=== PATIENT | female | born 1985 | race Caucasian/White ===

== ENCOUNTER → 2017-05-07 | Outpatient (REF) | payer BC ==
[2017-05-07 09:19] LABS: BASO # 0.1 10^3/uL (0.0-0.2); BASO % 0.7 % (0.0-1.0); EOS # 0.3 10^3/uL (0.0-0.50); EOS % 3.7 % (0.0-3.0); HEMATOCRIT 39.5 % (36.0-47.0); HEMOGLOBIN 13.1 g/dl (12.0-16.0); IMMATURE GRANULOCYTE % 0.5 % (0-0); LYMPH # 1.6 10^3/uL (1.5-4.5); MEAN CORPUSCULAR HEMOGLOBIN 30.4 pg (27.0-33.0); MEAN CORPUSCULAR HGB CONC 33.2 g/dl (32.0-36.5); MEAN CORPUSCULAR VOLUME 91.6 fl (80.0-96.0); MONO # 0.6 10^3/uL (0.0-0.8); NEUTROPHILS % 66.1 % (36.0-66.0); PLATELET COUNT, AUTOMATED 348 10^3/uL (150-450); RED BLOOD COUNT 4.31 10^6/uL (4.00-5.40); RED CELL DISTRIBUTION WIDTH 13.2 % (11.5-14.5); WHITE BLOOD COUNT 7.5 10^3/uL (4.0-10.0)
[2017-05-07 09:45] LABS: ALBUMIN 3.5 GM/DL (3.2-5.2); ALBUMIN/GLOBULIN RATIO 0.97 (1.00-1.93); ALKALINE PHOSPHATASE 72 U/L (45-117); ALT/SGPT 26 U/L (12-78); ANION GAP 5 MEQ/L (8-16); AST/SGOT 12 U/L (7-37); BILIRUBIN,TOTAL 0.5 MG/DL (0.2-1.0); BLOOD UREA NITROGEN 8 MG/DL (7-18); CALCIUM LEVEL 8.5 MG/DL (8.5-10.1); CARBON DIOXIDE LEVEL 28 MEQ/L (21-32); CHLORIDE LEVEL 107 MEQ/L (98-107); CHOLESTEROL LEVEL 138 MG/DL (<200); CHOLESTEROL RISK RATIO 2.123 (<5); CREATININE FOR GFR 0.71 MG/DL (0.55-1.30); FREE T4 0.92 NG/DL (0.76-1.46); GLOMERULAR FILTRATION RATE > 60.0 (>60); GLUCOSE, FASTING 94 MG/DL (70-100); HDL CHOLESTEROL 65 MG/DL (>40); LDL CHOLESTEROL 54.6 MG/DL (<100); NON-HDL-C 73 MG/DL; POTASSIUM SERUM 4.3 MEQ/L (3.5-5.1); SODIUM LEVEL 140 MEQ/L (136-145); TOTAL PROTEIN 7.1 GM/DL (6.4-8.2); TRIGLYCERIDES LEVEL 92 MG/DL (<150)
[2017-05-07 09:47] LABS: TOTAL 25(OH) VITAMIN D 17.3 NG/ML (30.0-100.0)
== END ==
LOC: M LAB REF 08:28
DX: Z00.00 Encounter for general adult medical examination without abnormal findings (principal); K50.919 Crohn's disease, unspecified, with unspecified complications; F32.9 Major depressive disorder, single episode, unspecified; R03.0 Elevated blood-pressure reading, without diagnosis of hypertension; E55.9 Vitamin D deficiency, unspecified
CPT/HCPCS: 84443

== ENCOUNTER → 2017-06-12 | Outpatient (CLI) | payer BC ==
[2017-06-12 18:42] LABS: ANION GAP 8 MEQ/L (8-16); BLOOD UREA NITROGEN 12 MG/DL (7-18); CALCIUM LEVEL 8.7 MG/DL (8.5-10.1); CARBON DIOXIDE LEVEL 26 MEQ/L (21-32); CHLORIDE LEVEL 105 MEQ/L (98-107); CREATININE FOR GFR 0.57 MG/DL (0.55-1.30); FREE T4 0.92 NG/DL (0.76-1.46); GLOMERULAR FILTRATION RATE > 60.0 (>60); GLUCOSE, FASTING 83 MG/DL (70-100); POTASSIUM SERUM 4.1 MEQ/L (3.5-5.1); SODIUM LEVEL 139 MEQ/L (136-145)
[2017-06-13 08:49] LABS: THYROGLOBULIN ANTIBODY 22.6 U/ML (<60.0); THYROID PEROXIDASE ANTIBODY < 28.0 U/ML (<60.0)
== END ==
LOC: M WUC 14:49
DX: R94.6 Abnormal results of thyroid function studies (principal); I10 Essential (primary) hypertension

== ENCOUNTER → 2017-06-27 | Outpatient (REF) | payer BC ==
[2017-06-27 12:03] LABS: BASO % 0.5 % (0.0-1.0); EOS # 0.1 10^3/uL (0.0-0.50); EOS % 2.1 % (0.0-3.0); HEMATOCRIT 41.8 % (36.0-47.0); HEMOGLOBIN 13.9 g/dl (12.0-16.0); IMMATURE GRANULOCYTE % 0.2 % (0-3.0); LYMPH # 1.4 10^3/uL (1.5-4.5); LYMPH % 20.9 % (24.0-44.0); MEAN CORPUSCULAR HEMOGLOBIN 30.3 pg (27.0-33.0); MEAN CORPUSCULAR HGB CONC 33.3 g/dl (32.0-36.5); MEAN CORPUSCULAR VOLUME 91.1 fl (80.0-96.0); MONO # 0.6 10^3/uL (0.0-0.8); MONO % 8.6 % (0.0-5.0); NEUTROPHILS # 4.4 10^3/uL (1.8-7.7); NEUTROPHILS % 67.7 % (36.0-66.0); PLATELET COUNT, AUTOMATED 398 10^3/uL (150-450); RED BLOOD COUNT 4.59 10^6/uL (4.00-5.40); RED CELL DISTRIBUTION WIDTH 13.2 % (11.5-14.5); WHITE BLOOD COUNT 6.5 10^3/uL (4.0-10.0)
[2017-06-27 12:27] LABS: ALBUMIN 3.8 GM/DL (3.2-5.2); ALKALINE PHOSPHATASE 80 U/L (45-117); ALT/SGPT 32 U/L (12-78); ANION GAP 6 MEQ/L (8-16); AST/SGOT 23 U/L (7-37); BILIRUBIN,TOTAL 1.1 MG/DL (0.2-1.0); BLOOD UREA NITROGEN 6 MG/DL (7-18); C REACTIVE PROTEIN QUANTITATIV 0.59 MG/DL (0.00-0.30); CARBON DIOXIDE LEVEL 29 MEQ/L (21-32); CHLORIDE LEVEL 105 MEQ/L (98-107); CREATININE FOR GFR 0.61 MG/DL (0.55-1.30); GLOMERULAR FILTRATION RATE > 60.0 (>60); GLUCOSE, FASTING 82 MG/DL (70-100); POTASSIUM SERUM 4.4 MEQ/L (3.5-5.1); SODIUM LEVEL 140 MEQ/L (136-145); TOTAL PROTEIN 7.6 GM/DL (6.4-8.2)
[2017-06-27 13:37] LABS: ERYTHROCYTE SEDIMENTATION RATE 14 mm/hr (0-20)
== END ==
LOC: M SFHCPLAZ 09:20
DX: K50.918 Crohn's disease, unspecified, with other complication (principal)

== ENCOUNTER → 2017-07-25 | Outpatient (CLI) | payer BC ==
[~2017-07-25] MED LIST: GASTROGRAFIN SOLUTION 30ML (Q9963) As Ordered; ISOVUE-370 76% 100ML VIAL (Q9967) As Ordered
== END ==
LOC: M RAD 08:13
DX: K50.90 Crohn's disease, unspecified, without complications (principal)
CPT/HCPCS: Q9963

== ENCOUNTER → 2017-09-20 | Outpatient (CLI) | payer BC ==
[2017-09-20 07:56] LABS: BASO # 0.1 10^3/uL (0.0-0.2); BASO % 0.5 % (0.0-1.0); EOS # 0.2 10^3/uL (0.0-0.50); EOS % 2.1 % (0.0-3.0); HEMOGLOBIN 12.5 g/dl (12.0-15.5); IMMATURE GRANULOCYTE % 0.3 % (0-3.0); LYMPH # 2.6 10^3/uL (1.5-4.5); LYMPH % 26.2 % (24.0-44.0); MEAN CORPUSCULAR HEMOGLOBIN 30.2 pg (27.0-33.0); MEAN CORPUSCULAR HGB CONC 33.8 g/dl (32.0-36.5); MEAN CORPUSCULAR VOLUME 89.4 fl (80.0-96.0); MONO # 0.9 10^3/uL (0.0-0.8); MONO % 8.8 % (0.0-5.0); NEUTROPHILS # 6.1 10^3/uL (1.8-7.7); NEUTROPHILS % 62.1 % (36.0-66.0); PLATELET COUNT, AUTOMATED 408 10^3/uL (150-450); RED BLOOD COUNT 4.14 10^6/uL (4.00-5.40); RED CELL DISTRIBUTION WIDTH 12.2 % (11.5-14.5); WHITE BLOOD COUNT 9.8 10^3/uL (4.0-10.0)
[2017-09-20 08:38] LABS: ALBUMIN 3.5 GM/DL (3.2-5.2); ALBUMIN/GLOBULIN RATIO 0.88 (1.00-1.93); ALKALINE PHOSPHATASE 100 U/L (45-117); ALT/SGPT 28 U/L (12-78); ANION GAP 8 MEQ/L (8-16); AST/SGOT 15 U/L (7-37); BILIRUBIN,TOTAL 0.7 MG/DL (0.2-1.0); BLOOD UREA NITROGEN 12 MG/DL (7-18); CALCIUM LEVEL 8.8 MG/DL (8.5-10.1); CARBON DIOXIDE LEVEL 27 MEQ/L (21-32); CHLORIDE LEVEL 104 MEQ/L (98-107); CREATININE FOR GFR 0.69 MG/DL (0.55-1.30); GLOMERULAR FILTRATION RATE > 60.0 (>60); GLUCOSE, FASTING 86 MG/DL (70-100); POTASSIUM SERUM 4.3 MEQ/L (3.5-5.1); SODIUM LEVEL 139 MEQ/L (136-145); TOTAL PROTEIN 7.5 GM/DL (6.4-8.2)
[2017-09-20 10:08] LABS: FOLATE 10.8 NG/ML; VITAMIN B12 LEVEL 217 PG/ML
[2017-09-21 10:44] LABS: HEPATITIS B SURFACE ANTIGEN NEGATIVE (NEGATIVE)
[2017-09-22 15:28] LABS: QUANTIFERON GOLD TB Negative (Negative); TB Test (QFT) Antigen 0.09 IU/mL (.); TB Test (QFT) Antigen Minus Ni <0.01 IU/mL (.); TB Test (QFT) Mitogen 6.47 IU/mL (.)
== END ==
LOC: M LAB 07:08
DX: K50.018 Crohn's disease of small intestine with other complication (principal)
CPT/HCPCS: 82746

== ENCOUNTER → 2018-01-01 | Outpatient (REF) | payer OTHER | LOC: M LAB REF 14:40 | DX: K50.018 Crohn's disease of small intestine with other complication (principal) ==

== ENCOUNTER → 2018-01-01 | Outpatient (CLI) | payer OTHER ==
[2018-01-01 07:49] LABS: BASO % 0.5 % (0.0-1.0); EOS # 0.3 10^3/uL (0.0-0.50); EOS % 4.4 % (0.0-3.0); HEMOGLOBIN 12.7 g/dl (12.0-15.5); IMMATURE GRANULOCYTE % 0.4 % (0-3.0); LYMPH # 2.6 10^3/uL (1.5-4.5); LYMPH % 33.3 % (24.0-44.0); MEAN CORPUSCULAR HEMOGLOBIN 30.1 pg (27.0-33.0); MEAN CORPUSCULAR HGB CONC 33.4 g/dl (32.0-36.5); MONO # 0.7 10^3/uL (0.0-0.8); MONO % 9.4 % (0.0-5.0); PLATELET COUNT, AUTOMATED 335 10^3/uL (150-450); RED BLOOD COUNT 4.22 10^6/uL (4.00-5.40); RED CELL DISTRIBUTION WIDTH 12.6 % (11.5-14.5); WHITE BLOOD COUNT 7.7 10^3/uL (4.0-10.0)
[2018-01-01 08:19] LABS: ALBUMIN/GLOBULIN RATIO 1.21 (1.00-1.93); ALKALINE PHOSPHATASE 70 U/L (45-117); ALT/SGPT 34 U/L (12-78); ANION GAP 6 MEQ/L (8-16); AST/SGOT 21 U/L (7-37); BILIRUBIN,TOTAL 0.6 MG/DL (0.2-1.0); BLOOD UREA NITROGEN 10 MG/DL (7-18); CALCIUM LEVEL 8.8 MG/DL (8.5-10.1); CARBON DIOXIDE LEVEL 29 MEQ/L (21-32); CHLORIDE LEVEL 104 MEQ/L (98-107); CREATININE FOR GFR 0.64 MG/DL (0.55-1.30); GLOMERULAR FILTRATION RATE > 60.0 (>60); GLUCOSE, FASTING 86 MG/DL (70-100); POTASSIUM SERUM 4.1 MEQ/L (3.5-5.1); SODIUM LEVEL 139 MEQ/L (136-145); TOTAL PROTEIN 7.3 GM/DL (6.4-8.2)
[2018-01-01 09:24] LABS: ERYTHROCYTE SEDIMENTATION RATE 7 mm/hr (0-20)
== END ==
LOC: M LAB 07:15
DX: K50.018 Crohn's disease of small intestine with other complication (principal)
CPT/HCPCS: 80053

== ENCOUNTER 2018-01-09 08:49 | Outpatient (CLI) | payer OTHER ==
[2018-01-09] MEDS: VEDOLIZUMAB 300 MG in NS 250 ML IV (09:46)
== END 2018-01-09 10:45 | disposition home or self-care (01) ==
LOC: M INFU 08:49
DX: K50.90 Crohn's disease, unspecified, without complications (principal)
CPT/HCPCS: J3380

== ENCOUNTER 2018-03-01 12:01 | Day surgery (SDC) | payer OTHER ==
[2018-03-01] MEDS: NS 1,000 ML IV (07:30)
[~2018-03-01 12:01] MED LIST changes: -GASTROGRAFIN SOLUTION 30ML (Q9963) As Ordered; -ISOVUE-370 76% 100ML VIAL (Q9967) As Ordered; +LIDOCAINE 2% INJ 100 MG/5 ML SDV (FOR ANES.) As Ordered; +PROPOFOL 200 MG/20 ML VIAL As Ordered
[2018-03-01] MEDS ORDERED: fentaNYL 100 MCG/2 ML INJECTION (J3010) As Ordered (13:56)
== END 2018-03-01 15:04 | disposition home or self-care (01) ==
LOC: M OPP 12:01
DX: K50.90 Crohn's disease, unspecified, without complications (principal); R12 Heartburn; F33.9 Major depressive disorder, recurrent, unspecified; F41.9 Anxiety disorder, unspecified; Z98.0 Intestinal bypass and anastomosis status; Z98.890 Other specified postprocedural states; Z79.899 Other long term (current) drug therapy; Z80.3 Family history of malignant neoplasm of breast
CPT/HCPCS: 45378

== ENCOUNTER 2018-03-13 09:59 | Outpatient (CLI) | payer OTHER ==
[~2018-03-13] VITALS: Ht 165.1 cm; Wt 86.4 kg
[~2018-03-13 09:59] MED LIST changes: +ABIL5TAB OR; +BUDE3CAP; +BUSP10TA2 OR; +EFFE75CA75 OR; +HUMI40KI2 SC; -LIDOCAINE 2% INJ 100 MG/5 ML SDV (FOR ANES.) As Ordered; +LISI10TA4 PO; -PROPOFOL 200 MG/20 ML VIAL As Ordered; +TRAZ50TA OR; +VENL150C43; +VENL37.598 PO; +VITA100067 PO; +VITA200016 PO; +VITA500C24 PO; +VITATAB11 PO; +ZOLO50TA OR
[2018-03-13 10:28] VITALS: BP 139/82
[2018-03-13] MEDS ORDERED: VEDOLIZUMAB 300 MG in NS 250 ML IV ONE (11:00)
[2018-03-13 11:17] VITALS: BP 131/93
== END 2018-03-13 11:15 | disposition home or self-care (01) ==
LOC: M INFU 09:59
PROVIDERS: ATTEND Internal Medicine Gastroenterology
DX: K50.90 Crohn's disease, unspecified, without complications (principal)
CPT/HCPCS: 96365; J3380

== ENCOUNTER 2018-05-01 06:56 | Outpatient (CLI) | payer OTHER ==
[~2018-05-01] VITALS: Ht 165.1 cm; Wt 86.5 kg
[2018-05-01 07:00] VITALS: BP 142/90
[2018-05-01] MEDS ORDERED: VEDOLIZUMAB 300 MG in NS 250 ML IV ONE (07:00)
[2018-05-01 08:28] VITALS: BP 143/93
== END 2018-05-01 08:30 | disposition home or self-care (01) ==
LOC: M INFU 06:56
PROVIDERS: ATTEND Internal Medicine Gastroenterology
DX: K50.90 Crohn's disease, unspecified, without complications (principal)
CPT/HCPCS: 96365; J3380

== ENCOUNTER → 2018-05-19 | Outpatient (REF) | payer OTHER ==
[2018-05-19 14:25] LABS: INFLUENZA A AMPLIFICATION POSITIVE (NEGATIVE); INFLUENZA B AMPLIFICATION NEGATIVE (NEGATIVE)
== END ==
LOC: M LAB REF 10:19
PROVIDERS: ATTEND Physician Assistant Medical
DX: J11.1 Influenza due to unidentified influenza virus with other respiratory manifestations (principal)

== ENCOUNTER → 2018-07-11 | Outpatient (CLI) | payer OTHER ==
[2018-07-11 13:49] LABS: HEMATOCRIT 41.2 % (36.0-47.0); HEMOGLOBIN 13.8 g/dl (12.0-15.5); MEAN CORPUSCULAR HEMOGLOBIN 29.9 pg (27.0-33.0); MEAN CORPUSCULAR HGB CONC 33.5 g/dl (32.0-36.5); MEAN CORPUSCULAR VOLUME 89.2 fl (80.0-96.0); PLATELET COUNT, AUTOMATED 332 10^3/uL (150-450); RED BLOOD COUNT 4.62 10^6/uL (4.00-5.40); WHITE BLOOD COUNT 7.3 10^3/uL (4.0-10.0)
[2018-07-11 14:23] LABS: ALBUMIN 3.8 GM/DL (3.2-5.2); ALT/SGPT 45 U/L (12-78); BILIRUBIN,TOTAL 1.2 MG/DL (0.2-1.0); BLOOD UREA NITROGEN 8 MG/DL (7-18); CALCIUM LEVEL 9.1 MG/DL (8.5-10.1); CARBON DIOXIDE LEVEL 23 MEQ/L (21-32); CHLORIDE LEVEL 105 MEQ/L (98-107); CREATININE FOR GFR 0.65 MG/DL (0.55-1.30); FREE T4 1.02 NG/DL (0.76-1.46); GLOMERULAR FILTRATION RATE > 60.0 (>60); GLUCOSE, FASTING 90 MG/DL (70-100); POTASSIUM SERUM 3.7 MEQ/L (3.5-5.1); SODIUM LEVEL 137 MEQ/L (136-145); TOTAL 25(OH) VITAMIN D 22.9 NG/ML (30.0-100.0); TOTAL PROTEIN 7.5 GM/DL (6.4-8.2)
[2018-07-11 14:26] LABS: CREATININE, URINE 28.3 MG/DL; MALB URINE SIEMENS < 5.0 MG/L; MAU/CREAT RATIO 17.6 MCG/MG (0.0-30.0)
== END ==
LOC: M LAB 13:22
PROVIDERS: ATTEND Physician Assistant
DX: E55.9 Vitamin D deficiency, unspecified (principal); I10 Essential (primary) hypertension

== ENCOUNTER 2018-12-11 08:48 | Outpatient (CLI) | payer OTHER ==
[~2018-12-11] VITALS: Ht 165.1 cm; Wt 89.8 kg
[2018-12-11 08:50] VITALS: BP 132/83
[2018-12-11] MEDS ORDERED: VEDOLIZUMAB 300 MG in NS 250 ML IV ONE (10:00)
[2018-12-11 10:05] VITALS: BP 148/90
== END 2018-12-11 10:15 | disposition home or self-care (01) ==
LOC: M INFU 08:48
PROVIDERS: ATTEND Internal Medicine Gastroenterology
DX: K50.90 Crohn's disease, unspecified, without complications (principal)
CPT/HCPCS: 96365; J3380

== ENCOUNTER 2019-02-12 09:00 | Outpatient (CLI) | payer OTHER ==
[~2019-02-12] VITALS: Ht 165.1 cm; Wt 79.8 kg
[2019-02-12 09:00] VITALS: BP 129/97
[2019-02-12] MEDS ORDERED: VEDOLIZUMAB 300 MG in NS 250 ML IV ONE (09:15)
[2019-02-12 10:20] VITALS: BP 135/87
== END 2019-02-12 10:20 | disposition home or self-care (01) ==
LOC: M INFU 09:00
PROVIDERS: ATTEND Internal Medicine Gastroenterology
DX: K50.90 Crohn's disease, unspecified, without complications (principal)
CPT/HCPCS: 96365; J3380

== ENCOUNTER 2019-04-09 08:58 | Outpatient (CLI) | payer BC, OTHER ==
[~2019-04-09] VITALS: Ht 165.1 cm; Wt 79.8 kg
[2019-04-09 09:00] VITALS: BP 131/90
[2019-04-09 10:20] VITALS: BP 141/87
[2019-04-09] MEDS ORDERED: VEDOLIZUMAB 300 MG in NS 250 ML IV ONE (11:00)
== END 2019-04-09 10:20 | disposition home or self-care (01) ==
LOC: M INFU 08:58
PROVIDERS: ATTEND Internal Medicine Gastroenterology
DX: K50.90 Crohn's disease, unspecified, without complications (principal); Z79.899 Other long term (current) drug therapy
CPT/HCPCS: 96365; J3380

== ENCOUNTER → 2019-05-08 | Outpatient (CLI) | payer BC ==
[2019-05-08 06:55] LABS: BASO # 0.1 10^3/uL (0.0-0.2); BASO % 0.8 % (0.0-1.0); EOS # 0.4 10^3/uL (0.0-0.5); EOS % 5.4 % (0.0-3.0); HEMATOCRIT 42.3 % (36.0-47.0); HEMOGLOBIN 13.5 g/dl (12.0-15.5); LYMPH # 2.2 10^3/uL (1.5-5.0); LYMPH % 27.6 % (24.0-44.0); MEAN CORPUSCULAR HEMOGLOBIN 30.8 pg (27.0-33.0); MEAN CORPUSCULAR HGB CONC 31.9 g/dl (32.0-36.5); MEAN CORPUSCULAR VOLUME 96.4 fl (80.0-96.0); MONO # 0.7 10^3/uL (0.0-0.8); MONO % 8.4 % (0.0-5.0); NEUTROPHILS # 4.5 10^3/uL (1.5-8.5); NEUTROPHILS % 57.5 % (36.0-66.0); PLATELET COUNT, AUTOMATED 323 10^3/uL (150-450); RED BLOOD COUNT 4.39 10^6/uL (4.00-5.40); WHITE BLOOD COUNT 7.8 10^3/uL (4.0-10.0)
[2019-05-08 07:32] LABS: ALBUMIN 3.5 GM/DL (3.2-5.2); ALT/SGPT 32 U/L (12-78); BILIRUBIN,TOTAL 0.7 MG/DL (0.2-1.0); BLOOD UREA NITROGEN 7 MG/DL (7-18); CALCIUM LEVEL 9.2 MG/DL (8.5-10.1); CARBON DIOXIDE LEVEL 31 MEQ/L (21-32); CHLORIDE LEVEL 104 MEQ/L (98-107); CHOLESTEROL LEVEL 142 MG/DL (<200); CHOLESTEROL RISK RATIO 2.088 (<5); CREATININE FOR GFR 0.66 MG/DL (0.55-1.30); GLOMERULAR FILTRATION RATE > 60.0 (>60); GLUCOSE, FASTING 76 MG/DL (70-100); HDL CHOLESTEROL 68 MG/DL (>40); LDL CHOLESTEROL 46 MG/DL (<100); NON-HDL-C 74 MG/DL; POTASSIUM SERUM 4.4 MEQ/L (3.5-5.1); SODIUM LEVEL 140 MEQ/L (136-145); TOTAL PROTEIN 7.7 GM/DL (6.4-8.2); TRIGLYCERIDES LEVEL 141 MG/DL (<150)
[2019-05-08 11:28] LABS: PTH INTACT 50.1 PG/ML (18.5-88.0); TOTAL 25(OH) VITAMIN D 20.7 NG/ML (30.0-100.0)
== END ==
LOC: M LAB 06:30
PROVIDERS: ATTEND Physician Assistant Medical
DX: E55.9 Vitamin D deficiency, unspecified (principal)

== ENCOUNTER 2019-06-02 08:53 | Outpatient (CLI) | payer BC ==
[~2019-06-02] VITALS: Ht 165.1 cm; Wt 79.8 kg
[2019-06-02 09:00] VITALS: BP 158/91
[2019-06-02 10:00] VITALS: BP 129/80
[2019-06-02] MEDS ORDERED: VEDOLIZUMAB 300 MG in NS 250 ML IV ONE (10:00)
== END 2019-06-02 10:00 | disposition home or self-care (01) ==
LOC: M INFU 08:53
PROVIDERS: ATTEND Internal Medicine Gastroenterology
DX: K50.90 Crohn's disease, unspecified, without complications (principal)
CPT/HCPCS: 96365; J3380

== ENCOUNTER → 2019-06-24 | Outpatient (REF) | payer BC ==
[2019-06-24 11:56] LABS: BASO % 0.5 % (0.0-1.0); EOS # 0.3 10^3/uL (0.0-0.5); EOS % 3.8 % (0.0-3.0); HEMATOCRIT 42.6 % (36.0-47.0); HEMOGLOBIN 13.8 g/dl (12.0-15.5); LYMPH # 1.5 10^3/uL (1.5-5.0); LYMPH % 19.9 % (24.0-44.0); MEAN CORPUSCULAR HEMOGLOBIN 30.7 pg (27.0-33.0); MEAN CORPUSCULAR HGB CONC 32.4 g/dl (32.0-36.5); MEAN CORPUSCULAR VOLUME 94.9 fl (80.0-96.0); MONO # 0.6 10^3/uL (0.0-0.8); MONO % 7.8 % (0.0-5.0); NEUTROPHILS # 5.1 10^3/uL (1.5-8.5); NEUTROPHILS % 67.6 % (36.0-66.0); PLATELET COUNT, AUTOMATED 433 10^3/uL (150-450); RED BLOOD COUNT 4.49 10^6/uL (4.00-5.40); WHITE BLOOD COUNT 7.6 10^3/uL (4.0-10.0)
[2019-06-24 12:13] LABS: ALBUMIN 3.7 GM/DL (3.2-5.2); ALT/SGPT 23 U/L (12-78); BILIRUBIN,TOTAL 1.1 MG/DL (0.2-1.0); BLOOD UREA NITROGEN 10 MG/DL (7-18); C REACTIVE PROTEIN QUANTITATIV 1.63 MG/DL (0.00-0.30); CALCIUM LEVEL 9.8 MG/DL (8.5-10.1); CARBON DIOXIDE LEVEL 30 MEQ/L (21-32); CHLORIDE LEVEL 102 MEQ/L (98-107); CPK CREATINE PHOSPHOKINASE 49 U/L (26-192); CREATININE FOR GFR 0.63 MG/DL (0.55-1.30); GLOMERULAR FILTRATION RATE > 60.0 (>60); GLUCOSE, FASTING 89 MG/DL (70-100); POTASSIUM SERUM 4.5 MEQ/L (3.5-5.1); SODIUM LEVEL 137 MEQ/L (136-145); TOTAL PROTEIN 8.3 GM/DL (6.4-8.2)
[2019-06-24 12:29] LABS: ERYTHROCYTE SEDIMENTATION RATE 58 mm/hr (0-20)
[2019-06-24 13:05] LABS: APPEARANCE, URINE HAZY (CLEAR); COLOR, URINE YELLOW (YELLOW); GLUCOSE, URINE (UA) AUTO NEGATIVE (NEGATIVE); KETONE, URINE AUTO NEGATIVE (NEGATIVE); PROTEIN, URINE AUTO NEGATIVE (NEGATIVE); SPECIFIC GRAVITY URINE AUTO 1.019 (1.002-1.035)
[2019-06-24 13:06] LABS: BILIRUBIN, URINE AUTO NEGATIVE (NEGATIVE); BLOOD, URINE BLOOD NEGATIVE (NEGATIVE); LEUKOCYTE ESTERASE, URINE AUTO NEGATIVE (NEGATIVE); NITRITE, URINE AUTO NEGATIVE (NEGATIVE); SQUAMOUS EPITHELIAL CELL UR AU 3 /HPF (0-6); UROBILINOGEN, URINE AUTO 0.2 mg/dL (0.0-2.0); WBC, URINE AUTO 7 /HPF (0-3)
[2019-06-24 13:07] LABS: MUCUS, URINE SMALL (NEGATIVE)
[2019-06-24 13:08] LABS: RBC, URINE AUTO 1 /HPF (0-3)
[2019-06-24 13:27] LABS: BACTERIA, URINE AUTO NEGATIVE (NEGATIVE)
== END ==
LOC: M SFHCPLAZ 10:11
PROVIDERS: ATTEND Physician Assistant Medical
DX: S29.011A Strain of muscle and tendon of front wall of thorax, initial encounter (principal); W18.30XA Fall on same level, unspecified, initial encounter; Y92.9 Unspecified place or not applicable

== ENCOUNTER → 2019-06-24 | Outpatient (CLI) | payer BC ==
--- NOTE | 2019-06-24 11:27 | REPPI ---
Clinical: Pleuritic chest pain . Comparison: None . Technique: PA and lateral. Findings: The mediastinum and cardiac silhouette are normal. The lung vernon are clear and without acute consolidation, effusion, or pneumothorax. The skeletal structures are intact and normal. Impression: 1. No acute cardiopulmonary process. Electronically Signed by Mitesh Yanez MD 06/24/2019 11:18 A
--- NOTE | 2019-06-24 11:28 | REPPI ---
Clinical: thoracic back pain. Technique: AP, lateral, and swimmers views. Findings: Alignment and kyphosis is maintained. Vertebral bodies intact. No acute fracture / compression injury or subluxation. No degenerative changes. Paravertebral soft tissues are normal. Impression: Normal thoracic spine series. Electronically Signed by Mitesh Yanez MD 06/24/2019 11:19 A
--- NOTE | 2019-06-24 11:30 | REPPI ---
Clinical: Lower back pain and sciatica . Technique: AP, lateral, bilateral oblique, and coned-down views. Findings: Alignment and lordosis is maintained. The vertebral bodies including are intact and there is no evidence for acute fracture / compression injury or subluxation. Lateral view cannot exclude L5 spondylolysis and facet hypertrophy without spondylolisthesis. The disc spaces are essentially well-maintained. Impression: Cannot exclude L5 spondylolysis and L5 facet arthropathy without further abnormalities. Electronically Signed by Mitesh Yanez MD 06/24/2019 11:22 A
== END ==
LOC: M PLAIMG 10:47
PROVIDERS: ATTEND Physician Assistant Medical
DX: S29.011A Strain of muscle and tendon of front wall of thorax, initial encounter (principal); M54.31 Sciatica, right side; R07.81 Pleurodynia; X58.XXXA Exposure to other specified factors, initial encounter; Y92.89 Other specified places as the place of occurrence of the external cause

== ENCOUNTER → 2019-06-24 | Outpatient (CLI) | payer BC ==
--- NOTE | 2019-06-24 12:28 | REP ---
Clinical: Right flank pain. Technique: Axial noncontrast images from the lung bases to the pubic symphysis with coronal and sagittal re-formations. Comparison: 07/25/2017. Findings: Lung bases are clear. Visualized heart and pericardium normal. Liver, spleen, pancreas, bilateral adrenal glands and right kidney are normal for noncontrast evaluation. The left kidney demonstrates few 1-2 mm nonobstructing calculi and suspected 2 cm cyst. There is no evidence for perinephric stranding, hydronephrosis, or obstructing ureteral calculus. Evidence of prior cholecystectomy. The enteric system is without obstruction or acute inflammatory process. There is evidence for prior partial resection and anastomoses in the right lower quadrant along with evidence of prior appendectomy. Pelvis demonstrates normal bladder and age-appropriate uterus/adnexa. No ascites. No free air. No adenopathy. Abdominal aorta without aneurysm. Musculoskeletal structures without acute osseous abnormality. Impression: 1. No acute abdominopelvic pathology appreciated. No ascites. No adenopathy. No focal inflammatory stranding. 2. 1-2 mm nonobstructing left renal calculi and suspected 2 cm left renal cyst. Right kidney/ureter and bladder appear normal. 3. Evidence for prior cholecystectomy, appendectomy and distal small bowel resection/anastomoses. Electronically Signed by Mitesh Yanez MD 06/24/2019 12:20 P
== END ==
LOC: M RAD 11:47
PROVIDERS: ATTEND Physician Assistant Medical
DX: R10.9 Unspecified abdominal pain (principal); N20.0 Calculus of kidney; Z90.49 Acquired absence of other specified parts of digestive tract

== ENCOUNTER → 2019-06-30 | Outpatient (CLI) | payer BC ==
[2019-06-30 16:21] LABS: BASO # 0.1 10^3/uL (0.0-0.2); BASO % 0.6 % (0.0-1.0); EOS # 0.2 10^3/uL (0.0-0.5); EOS % 2.8 % (0.0-3.0); HEMATOCRIT 39.1 % (36.0-47.0); LYMPH % 25.1 % (24.0-44.0); MEAN CORPUSCULAR HEMOGLOBIN 31.3 pg (27.0-33.0); MEAN CORPUSCULAR HGB CONC 33.2 g/dl (32.0-36.5); MEAN CORPUSCULAR VOLUME 94.2 fl (80.0-96.0); MONO # 0.9 10^3/uL (0.0-0.8); NEUTROPHILS # 4.7 10^3/uL (1.5-8.5); NEUTROPHILS % 60.1 % (36.0-66.0); PLATELET COUNT, AUTOMATED 408 10^3/uL (150-450); RED BLOOD COUNT 4.15 10^6/uL (4.00-5.40); WHITE BLOOD COUNT 7.8 10^3/uL (4.0-10.0)
[2019-06-30 17:53] LABS: ERYTHROCYTE SEDIMENTATION RATE 39 mm/hr (0-20)
== END ==
LOC: M LAB 15:19
PROVIDERS: ATTEND Family Medicine
DX: M54.31 Sciatica, right side (principal); M54.32 Sciatica, left side

== ENCOUNTER → 2019-07-03 | Outpatient (CLI) | payer BC ==
[~2019-07-03] MED LIST changes: +PROHANCE 279.3MG/ML 15ML VIAL (A9576) As Ordered ONE; +PROHANCE 279.3MG/ML 5ML VIAL (A9576) As Ordered ONE
--- NOTE | 2019-07-03 11:08 | REP ---
MRI LUMBAR SPINE WITHOUT AND WITH IV GADOLINIUM: HISTORY: Discitis of the lumbar region. Pain. Comparison lumbar spine radiographs June 24, 2019. TECHNIQUE: Sagittal and axial T1 and T2-weighted scans are acquired in the usual fashion with and without fat saturation. Sequences include spin echo, turbo spin-echo, and STIR imaging sequences. The field of view on sagittal images extend from the upper half of the T12 vertebral body through the second sacral segment. Gadolinium enhancement dose is 16.2 mL of intravenous ProHance. MRI FINDINGS: Lumbar vertebral body heights are preserved. Alignment is normal. There is no evidence of spondylolysis or spondylolisthesis. No bony destructive lesion is seen. Intervertebral disc space narrowing is noted at L3-4 and slightly at L4-5. End plates remain intact. There is no MR evidence of lumbar infectious discitis. The tip of the conus medullaris is normal in position and appearance at T12-L1. No extra vertebral abnormality is observed. Axial and sagittal images at L3-4 demonstrate minimal diffuse disc bulging. No central canal stenosis or foraminal narrowing is seen. The L4-5 level shows an unremarkable posterior disc margin. At L5-S1, there is mild facet hypertrophy bilaterally. No spinal stenosis, disc protrusion, or foraminal narrowing is seen. IMPRESSION: Mild degenerative spondylosis changes L3-4 and L5-S1 as above. There is no evidence of infectious discitis. No abnormal gadolinium and the enhancement is seen. Electronically Signed by Yfn Cullen MD 07/03/2019 12:35 P
--- NOTE | 2019-07-03 11:57 | REP ---
MRI THORACIC SPINE WITHOUT AND WITH IV GADOLINIUM: HISTORY: Discitis of the lumbar region. Back pain. TECHNIQUE: Sagittal and axial T1- and T2-weighted scans are acquired in the usual fashion with and without fat saturation. Sequences include spin echo, turbo spin-echo, and STIR imaging sequences. Gadolinium enhancement dose is 16.2 mL of intravenous ProHance. MRI FINDINGS: Thoracic vertebral body heights are preserved. Alignment is normal. No bony destructive lesion is seen. There is degenerative disc narrowing at T6-7, T4-5, and T11-T12 consistent with degenerative disc disease. Thoracic cord is normal in coarse, caliber, and signal intensity. At the T11-12 level however, there is a broad-based disc protrusion, which effaces the ventral subarachnoid space and flattens the ventral margin of the lower thoracic cord just above the conus. The conus is at T12-L1. The mid line AP dimension of the thecal sac at the level of the disc protrusion is 10 mm. There is no evidence of tod spinal stenosis or cord compression. On T2-weighted inversion recovery sequences, there are several foci of marrow edema with T2-weighted signal. These areas including the right posterior vertebral body at T10, the left posterior vertebral body and left pedicle at T9, the left posterior vertebral body at T7 and the left posterior vertebral body and pedicle at T6. There is some contrast enhancement associated with these. T1-weighted postcontrast axial images shows edema and contrast enhancement at the costovertebral junctions of these segments. Question costovertebral arthropathy with associated marrow edema. No neural foraminal narrowing is appreciated. IMPRESSION: 1. No evidence of infectious discitis. 2. There is a broad-based disc protrusion at the at T11-12 indenting the ventral margin of the distal cord. 3. There are several foci of marrow edema and enhancement associated with the costovertebral joints of the T6, T7, T9, and T10 levels question inflammatory arthropathy of the costovertebral junctions. Findings were discussed by telephone with the referring provider at the time of this dictation. Electronically Signed by Yfn Cullen MD 07/03/2019 12:35 P
== END ==
LOC: M RAD 08:46
PROVIDERS: ATTEND Physician Assistant Medical
DX: M46.47 Discitis, unspecified, lumbosacral region (principal)
CPT/HCPCS: 72157; 72158; A9576

== ENCOUNTER → 2019-07-04 | Outpatient (REF) | payer BC ==
[~2019-07-04] MED LIST changes: -PROHANCE 279.3MG/ML 15ML VIAL (A9576) As Ordered ONE; -PROHANCE 279.3MG/ML 5ML VIAL (A9576) As Ordered ONE
== END ==
LOC: M SFHCPLAZ 11:21
PROVIDERS: ATTEND Physician Assistant Medical
DX: M25.50 Pain in unspecified joint (principal)

== ENCOUNTER → 2019-07-09 | Outpatient (CLI) | payer BC ==
--- NOTE | 2019-07-09 20:20 | REP ---
MRI PELVIS WITHOUT CONTRAST: MRI pelvis performed in the axial, sagittal and coronal planes without the use of intravenous contrast. Images are centered on the sacrum and coccyx. There is mild subchondral marrow edema along the sacroiliac joints bilaterally, more so on the right than on the left. Mild scattered subchondral marrow edema is seen in both the sacrum and iliac bone, both superiorly and inferiorly along the right sacroiliac joint. On the left there is mild subchondral marrow edema along the superior aspect of the sacroiliac joint in the sacrum and to a lesser extent in the adjacent iliac bone. The findings are compatible with bilateral sacroiliitis. Within the pelvis, the uterus appears unremarkable. The ovaries demonstrate no mass. There is trace free fluid which is likely physiologic in nature. No definite adenopathy is seen in the visualized pelvis. IMPRESSION: Mild bilateral sacroiliitis right greater than left. Electronically Signed by Shad Mishra MD 07/10/2019 11:57 A
== END ==
LOC: M RAD 15:27
PROVIDERS: ATTEND Physician Assistant Medical
DX: M46.1 Sacroiliitis, not elsewhere classified (principal)

== ENCOUNTER → 2019-07-10 | Outpatient (REF) | payer BC ==
[2019-07-10 12:55] LABS: C REACTIVE PROTEIN QUANTITATIV 0.64 MG/DL (0.00-0.30)
[2019-07-10 12:57] LABS: H PYLORI QUALITATIVE IgG NEGATIVE (NEGATIVE)
== END ==
LOC: M SFHCPLAZ 10:25
PROVIDERS: ATTEND Physician Assistant Medical
DX: M45.8 Ankylosing spondylitis sacral and sacrococcygeal region (principal)

== ENCOUNTER 2019-07-24 11:46 | Outpatient (CLI) | payer BC, OTHER ==
[~2019-07-24] VITALS: Ht 165.1 cm; Wt 77.5 kg
[~2019-07-24 11:46] MED LIST changes: +VEDOLIZUMAB 300 MG in NS 250 ML IV ONE
[2019-07-24] MEDS ORDERED: VEDOLIZUMAB 300 MG in NS 250 ML IV ONE (12:00)
[2019-07-24 12:16] VITALS: BP 143/97
[2019-07-24 13:06] VITALS: BP 152/95
== END 2019-07-24 13:06 | disposition home or self-care (01) ==
LOC: M INFU 11:46
PROVIDERS: ATTEND Internal Medicine Gastroenterology
DX: K50.90 Crohn's disease, unspecified, without complications (principal); Z79.899 Other long term (current) drug therapy
CPT/HCPCS: 96365; J3380

== ENCOUNTER → 2019-08-01 | Outpatient (REF) | payer BC ==
[~2019-08-01] MED LIST changes: -VEDOLIZUMAB 300 MG in NS 250 ML IV ONE
[2019-08-01 13:59] LABS: C REACTIVE PROTEIN QUANTITATIV 1.78 MG/DL (0.00-0.30); FREE T4 1.04 NG/DL (0.76-1.46); THYROID STIMULATING HORMONE 3.12 uIU/ML (0.358-3.740)
== END ==
LOC: M SFHCPLAZ 12:10
PROVIDERS: ATTEND Physician Assistant Medical
DX: R63.5 Abnormal weight gain (principal); M45.8 Ankylosing spondylitis sacral and sacrococcygeal region

== ENCOUNTER → 2019-08-29 | Outpatient (REF) | payer BC | LOC: M SFHCPLAZ 11:33 | PROVIDERS: ATTEND Physician Assistant Medical | DX: M45.8 Ankylosing spondylitis sacral and sacrococcygeal region (principal) ==

== ENCOUNTER 2019-09-18 12:42 | Outpatient (CLI) | payer BC ==
[~2019-09-18] VITALS: Ht 165.1 cm; Wt 77.5 kg
[2019-09-18 12:45] VITALS: BP 132/61
[2019-09-18] MEDS ORDERED: VITAD1000T PO (12:58)
[2019-09-18] MEDS ORDERED: SULF500T2 PO (12:59)
[2019-09-18] MEDS ORDERED: ENTY1INJ IV (12:59)
[2019-09-18] MEDS ORDERED: VEDOLIZUMAB 300 MG in NS 250 ML IV ONE (13:30)
[2019-09-18 14:00] VITALS: BP 136/84
== END 2019-09-18 14:00 | disposition home or self-care (01) ==
LOC: M INFU 12:42
PROVIDERS: ATTEND Internal Medicine Gastroenterology
DX: K50.90 Crohn's disease, unspecified, without complications (principal)
CPT/HCPCS: 96365; J3380

== ENCOUNTER 2019-11-18 09:57 | Outpatient (CLI) | payer BC ==
[~2019-11-18 09:57] MED LIST changes: +D31000TA2 PO; +ENTY1INJ IV; +SULF500T2 PO
[2019-11-18] MEDS ORDERED: VEDOLIZUMAB 300MG VIAL (ENTYVIO) (J3380 PER 1MG) ONE (10:00)
== END 2019-11-18 11:15 | disposition home or self-care (01) ==
LOC: M INFU 09:57
PROVIDERS: ATTEND Internal Medicine Gastroenterology
DX: K50.90 Crohn's disease, unspecified, without complications (principal)
CPT/HCPCS: 96365; J3380

== ENCOUNTER 2020-01-07 08:46 | Outpatient (CLI) | payer BC ==
[~2020-01-07] VITALS: Ht 165.1 cm; Wt 77.5 kg
[2020-01-07 09:07] VITALS: BP 128/75
[2020-01-07] MEDS: VEDOLIZUMAB 300 MG in NS 250 ML IV ONE (09:45)
== END 2020-01-07 10:15 | disposition home or self-care (01) ==
LOC: M INFU 08:46
PROVIDERS: ATTEND Internal Medicine Gastroenterology
DX: K50.90 Crohn's disease, unspecified, without complications (principal)
CPT/HCPCS: 96365; J3380

== ENCOUNTER 2020-03-03 08:50 | Outpatient (CLI) | payer BC ==
[~2020-03-03] VITALS: Ht 165.1 cm; Wt 90.0 kg
[2020-03-03 08:55] VITALS: BP 144/75
[2020-03-03] MEDS ORDERED: VEDOLIZUMAB 300 MG in NS 250 ML IV ONE (09:00)
[2020-03-03 09:45] VITALS: BP 139/72
[2020-03-03 10:00] VITALS: BP 139/72
== END 2020-03-03 10:00 | disposition home or self-care (01) ==
LOC: M INFU 08:50
PROVIDERS: ATTEND Internal Medicine Gastroenterology
DX: K50.90 Crohn's disease, unspecified, without complications (principal)
CPT/HCPCS: 96365; J3380

== ENCOUNTER → 2020-03-03 | Outpatient (REF) | payer BC | LOC: M LAB REF 09:45 | PROVIDERS: ATTEND Internal Medicine Gastroenterology | DX: K50.00 Crohn's disease of small intestine without complications (principal) ==

== ENCOUNTER → 2020-03-10 | Outpatient (REF) | payer BC ==
[2020-03-10 13:48] LABS: BASO # 0.1 10^3/uL (0.0-0.2); BASO % 0.8 % (0.0-1.0); HEMATOCRIT 43.6 % (36.0-47.0); HEMOGLOBIN 13.5 g/dl (12.0-15.5); LYMPH # 1.9 10^3/uL (1.5-5.0); LYMPH % 23.7 % (24.0-44.0); MEAN CORPUSCULAR VOLUME 93.8 fl (80.0-96.0); MONO # 0.9 10^3/uL (0.0-0.8); MONO % 11.7 % (0.0-5.0); NEUTROPHILS # 5.1 10^3/uL (1.5-8.5); NEUTROPHILS % 63.4 % (36.0-66.0); PLATELET COUNT, AUTOMATED 389 10^3/uL (150-450); RED BLOOD COUNT 4.65 10^6/uL (4.00-5.40)
[2020-03-10 14:19] LABS: ALBUMIN 3.6 GM/DL (3.2-5.2); ALT/SGPT 38 U/L (12-78); BILIRUBIN,TOTAL 0.3 MG/DL (0.2-1.0); BLOOD UREA NITROGEN 14 MG/DL (7-18); C REACTIVE PROTEIN QUANTITATIV 0.94 MG/DL (0.00-0.30); CALCIUM LEVEL 9.6 MG/DL (8.5-10.1); CARBON DIOXIDE LEVEL 32 MEQ/L (21-32); CHLORIDE LEVEL 103 MEQ/L (98-107); CHOLESTEROL LEVEL 165 MG/DL (<200); CHOLESTEROL RISK RATIO 2.578 (<5); CREATININE FOR GFR 0.68 MG/DL (0.55-1.30); FREE T4 0.93 NG/DL (0.76-1.46); GLOMERULAR FILTRATION RATE > 60.0 (>60); GLUCOSE, FASTING 85 MG/DL (70-100); HDL CHOLESTEROL 64 MG/DL (>40); LDL CHOLESTEROL 61 MG/DL (<100); NON-HDL-C 101 MG/DL; POTASSIUM SERUM 5.2 MEQ/L (3.5-5.1); SODIUM LEVEL 136 MEQ/L (136-145); TOTAL PROTEIN 7.9 GM/DL (6.4-8.2); TRIGLYCERIDES LEVEL 201 MG/DL (<150)
[2020-03-10 14:20] LABS: ERYTHROCYTE SEDIMENTATION RATE 32 mm/hr (0-20); PTH INTACT 29.8 PG/ML (18.5-88.0)
[2020-03-10 14:26] LABS: TOTAL 25(OH) VITAMIN D 16.9 NG/ML (30.0-100.0)
== END ==
LOC: M SFHCPLAZ 08:18
PROVIDERS: ATTEND Physician Assistant Medical
DX: M45.8 Ankylosing spondylitis sacral and sacrococcygeal region (principal); I10 Essential (primary) hypertension; Z13.220 Encounter for screening for lipoid disorders; F41.9 Anxiety disorder, unspecified; E55.9 Vitamin D deficiency, unspecified

== ENCOUNTER → 2020-04-05 | Outpatient (CLI) | payer BC ==
--- NOTE | 2020-04-05 08:55 | REPPI ---
INDICATION: CERVICALGIA COMPARISON: None. TECHNIQUE: AP, lateral, flexion/extension, bilateral oblique, and open-mouth views. FINDINGS: Alignment and lordosis is maintained. There is no evidence for acute fracture / compression injury or subluxation. No significant degenerative changes are appreciated. Oblique views demonstrate patent neural foramen. Open mouth view demonstrates normal C1-C2 articulation and odontoid process. IMPRESSION: Normal cervical spine series. <Electronically signed by Mitesh Yanez > 04/05/20 [id number]
== END ==
LOC: M PLAIMG 08:15
PROVIDERS: ATTEND Physician Assistant Medical
DX: M54.2 Cervicalgia (principal)

== ENCOUNTER 2020-04-16 16:24 | Outpatient (CLI) | payer BC ==
[~2020-04-16] VITALS: Ht 165.1 cm; Wt 91.1 kg
[~2020-04-16 16:24] MED LIST changes: +VEDOLIZUMAB 300 MG in NS 250 ML IV ONE
[2020-04-16 16:30] VITALS: BP 137/68
[2020-04-16 17:30] VITALS: BP 130/78
[2020-04-16 17:40] VITALS: BP 138/79
== END 2020-04-16 17:40 | disposition home or self-care (01) ==
LOC: M INFU 16:24
PROVIDERS: ATTEND Internal Medicine Gastroenterology
DX: K50.90 Crohn's disease, unspecified, without complications (principal)
CPT/HCPCS: 96365; J3380

== ENCOUNTER 2020-05-24 20:55 | Emergency (ER) | payer BC ==
[~2020-05-24] VITALS: Ht 165.1 cm; Wt 90.8 kg
[~2020-05-24 20:55] MED LIST changes: +LISI10TA22 PO; -LISI10TA4 PO; -VEDOLIZUMAB 300 MG in NS 250 ML IV ONE
--- OUTSIDE RECORDS SUMMARY | 2020-05-24 21:01 | CCD ---
Author Author [facility] Organization [facility] Address Unknown Phone Unavailable Care Team Providers Care Speech Communication Professor Name Role Phone Chiquis Charles Unavailable PROBLEMS Type Condition ICD9-CM Code [id number] Code Onset Dates Condition S tatus SNOMED Code Notes Problem Vitamin D deficiency E55.9 Active 81045218 Problem Depression, unspecified depression type F32.9 Active 89649431 Problem Anxiety F41.9 Active 13960390 Problem Crohn''s disease without com plication, unspecified gastrointestinal tract location K50.90 Active 08843495 Problem Lipid screening Z13.220 Active 832146078 Problem Breast cancer screening Z12.39 Active 26007117 1 Problem Discitis thoracic region M46.44 Active 4643478 02 Problem Hyperfunction of pituitary gland E22.9 Active 30547598 Problem Discitis of lumbosacral region M46.47 Active 2 728506 Problem Essential hypertension I10 Active 98409258 Problem Cervical cancer screening Z12.4 Active 675584 001 Problem Sciatica, left side M54.32 Active 94828832 Problem Sciatica, right side M54.31 Active 27379383762 112558 Problem Long-term use of immunosuppressant medication Z79. 899 Active 851190006 ALLERGIES Allergen (clinical drug ingredient) Drug/Non Drug Allergy do cumented on EMR Reaction Allergy Type Onset Date Status Humira palpitations Non Drug Allergy Active ENCOUNTERS from 1983 to 2020-04-24 Encounter Location Date Provider Diagnosis [address] [address] Apr, Chiquis Charles IMMUNIZATIONS Vaccine Route Administration Date Status Depo-Medrol 80mg (Methylprednisolone Acetate) IM Intramuscular A pril 2019 Administered TD Adult 0.5mL (Tetanus) Unknown August 04, 2014 Adminis tered Influenza (6mo & up) Fluzone Unknown Jan 01, 2018 Adm inistered Influenza (6mo & up) Fluzone Unknown Mar 23, 2017 Adm inistered SOCIAL HISTORY Tobacco Use: Social History Observation Description Date Details (start date - stop date) Former Smoker Sex Assigned At : Social History Observation Description Sex Assigned At Unknown Audit Question Answer Notes Total Score: 3 Interpretation: Alcohol Education Language: Question Answer Notes Languages spoken: Greek Domestic Violence: Question Answer Notes Status: Sexual Hx: Question Answer Notes Had sex in the last 12 months (vaginal, oral, or anal)? Yes LMP: 06/16/17 Have you ever had an STD? No with Men only Use protection? No Drug and Alcohol Question Answer Notes Total Score: 0 Interpretation: No problems reported Alcohol Screening: Question Answer Notes Did you have a drink containing alcohol in the past year? No Points 0 Interpretation Negative Tobacco Use: Question Answer Notes Are you a: former smoker How long has it been since you last smoked? 1-3 months REASON FOR REFERRAL No Information VITAL SIGNS No information MEDICATIONS Medication SIG (Take, Route, Frequency, Duration) Notes Start Da te End Date Status Sulfasalazine 500 MG 2tablet Orally bid for 30 day(s) Active HydrOXYzine HCl 25 mg 1 tablet as needed Orally every 6 hrs Active Nexium 40 MG 1 capsule Orally Once a day for 30 day(s) Active Effexor XR 37.5 MG 1 capsule with food Orally O nce a day c 150mg Plavick=991.5mg for 90 day(s) Sep, Active Lisinopril 10 MG 1 tablet Orally Once a day Active Vitamin D (Cholecalciferol) 1000 UNIT 1 capsule Orally Once a day Active Entyvio 300 MG Intravenous every 8 weeks Active Effexor XR 150 MG 187.5mg Orally Once a day for 90 day(s) Active PROCEDURES No Information RESULTS No Results REASON FOR VISIT Cancelled appointment MEDICAL (GENERAL) HISTORY Type Description Date Medical History chronic MDD/BONILLA - Previsouly followed w/ Dr. 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 stenosis, no inflammation/ulceration. Neoterminal ileum is a bit stenotic distally near the anastomosis, no inflammation 03/01/18 Hospitalization History Childbirth x 4 Hospitalization History Intestinal Blockage 10/2014 Hospitalization History Partial Colectomy 2016 Hospitalization History Cholecystectomy 2017 Goals Section No Information Health Concerns No Information MEDICAL EQUIPMENT No Information MENTAL STATUS No Information FUNCTIONAL STATUS No Information ASSESSMENTS No Information PLAN OF TREATMENT Medication Medication Name Sig Start Date Stop Date Vitamin D (Cholecalciferol) 1000 UNIT 1 capsule Orally Once a da y Next Appt Details Provider Name:Chiquis Charles, 07-12 07:30:00 AM, [address] [place], [address], Insurance Providers Payer Name Payer Address Payer Phone Insured Name Patient Relati onship to Insured Coverage Start Date Coverage End Date [employer] PPO [id number] [id number] [place]
--- OUTSIDE RECORDS SUMMARY | 2020-05-24 21:01 | CCD ---
Author Author [facility] Organization [facility] Address Unknown Phone Unavailable Care Team Providers Care Stack Matcher Name Role Phone Araceli Chiquis Unavailable PROBLEMS Type Condition ICD9-CM Code OUA13-DM Code Onset Dates Condition S tatus SNOMED Code Notes Problem Vitamin D deficiency E55.9 Active 82448670 Problem Depression, unspecified depression type F32.9 Active 82316159 Problem Anxiety F41.9 Active 46042959 Problem Crohn''s disease without com plication, unspecified gastrointestinal tract location K50.90 Active 95433552 Problem Lipid screening Z13.220 Active 151748903 Problem Breast cancer screening Z12.39 Active 19092342 1 Problem Discitis thoracic region M46.44 Active 1319066 02 Problem Hyperfunction of pituitary gland E22.9 Active 71211035 Problem Discitis of lumbosacral region M46.47 Active 2 222922 Problem Essential hypertension I10 Active 12832001 Problem Cervical cancer screening Z12.4 Active 181964 001 Problem Sciatica, left side M54.32 Active 62737734 Problem Sciatica, right side M54.31 Active 80020359009 039657 Problem Long-term use of immunosuppressant medication Z79. 899 Active 657101631 ALLERGIES Allergen (clinical drug ingredient) Drug/Non Drug Allergy do cumented on EMR Reaction Allergy Type Onset Date Status Humira palpitations Non Drug Allergy Active ENCOUNTERS from 1983 to 2020-04-23 Encounter Location Date Provider Diagnosis [address] [address] Apr, Chiquis Charles Cervicalgia M54.2 ; Weight gain R63.5 ; Long-term use of immunosuppressant medication Z79.899 and Vitamin D deficiency E55.9 IMMUNIZATIONS Vaccine Route Administration Date Status Depo-Medrol [...] Education Language: Question Answer Notes Languages spoken: Portuguese Domestic Violence: Question Answer Notes Status: Sexual [...] REASON FOR REFERRAL No Information VITAL SIGNS Weight 204 lbs Apr, Height 65 in Apr, BMI 33.94 kg/m2 Apr, Heart Rate 99 /min Apr, Respiratory Rate 18 /min Apr, Temperature 96.5 degrees Fahrenheit Apr, Oximetry 96 Apr, Blood pressure systolic 120 mm Hg Apr, Blood pressure diastolic 78 mm Hg Apr, MEDICATIONS Medication SIG (Take, Route, Frequency, Duration) [...] Orally O nce a day c 150mg Ftqjcow=057.5mg for 90 day(s) Sep, Active Lisinopril 10 MG 1 tablet Orally Once a day Active Vitamin D (Cholecalciferol) 1000 UNIT 1 capsule Orally Once a day Active Entyvio 300 MG Intravenous every 8 weeks Active Effexor XR 150 MG 187.5mg Orally Once a day for 90 day(s) Active PROCEDURES No Information RESULTS No Results REASON FOR VISIT neck pain, review xrays MEDICAL (GENERAL) HISTORY Type Description Date Medical History chronic MDD/BONILLA - Previsouly followed w/ Dr. 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 Given exer.s to try if symp.s return 04/2020 C-spine xrays were nl will give directed exercises to use for in future if acts up again Apr, Weight gain (ICD-10 - R63.5) Wt. up 2 more lbs. now 204, encouraged increased exercise c wt.s, already restricting calories Apr, Long-term use of immunosuppressant medication (I CD-10 - Z79.899) Afebrile & s c/o c Crohn's or ASpondyl. 20 Apr, 2020 Vitamin D deficiency (ICD-10 - E55.9) Will recheck in future c thyroid lab.s in July 12/2020 vit. d 16.9, pthi 29.8 PLAN OF TREATMENT Medication Medication Name Sig Start Date Stop Date Vitamin D (Cholecalciferol) 1000 UNIT 1 capsule Orally Once a da y Treatment Notes Assessment Notes Clinical Notes Cervicalgia Pain now resolved to day & no neurologic symp.s. Given exer.s to try if symp.s return04/2020 C-spine xrays were nl will give directed exercises to use for in future if acts up again Weight gain Wt. up 2 more lbs. n ow 204, encouraged increased exercise c wt.s, already restricting calories Long-term use of immunosuppressant medication Afebrile & s c/o c Crohn's or ASpondyl. Vitamin D deficiency Will recheck in fut ure c thyroid lab.s in vit. d 16.9, pthi 29.8 Future Test Test Name Order Date VITAMIN D 25-HYDROXY [id number] Comprehensive Metabolic Profile (CMP) [id number] PTH INTACT [id number] Next Appt Details c SS Reason: Provider Name:Chiquis Charles, 07-12 07:30:00 AM, [address] [place], [address], Insurance Providers Payer Name Payer Address Payer Phone Insured Name Patient Relati onship to Insured Coverage Start Date Coverage End Date [employer] PPO [address] [facility] [address] [facility] [id number] [place]
--- OUTSIDE RECORDS SUMMARY | 2020-05-24 21:01 | CCD | Continuity of Care Document ---
Author Author Charla SESAY MD Organization Unknown Address [address] [place] [address] Phone [phone] Care Team Providers Care Powder Mixer Name Role Phone Chiquis Charles AUTM [phone] Problems Description No Active Problems Social History Type Date Description Comments Sex Unknown ETOH Use 1 A Week Tobacco Use Start: Unknown Patient has never smoked Allergies, Adverse Reactions, Alerts Description No Known Drug Allergies Medications Active Medications SIG Qnty Indications Ordering Provide r Date Entyvio 300mg Solution Rec infuse 300 mg iv every 8 weeks 1units K50.018 Oswaldo Sesay MD 11/19/2017 [id number] 1mg Chewtabs 1 by mouth every day for b12 deficit. 30units Oswaldo Sesay MD 8 Effexor XR 150mg Caps ER 24HR 1 by mouth every day Unknown Effexor XR 37.5mg Caps ER 24HR 1 by mouth every day Unknown Vitamin D 1000Unit Tablets 1 by mouth every day Unknown Sulfasalazine 500mg Tablets d aily Unknown Esomeprazole Magnesium 40mg Capsul es DR 1 by mouth every day 30caps Oswaldo Sesay MD Immunizations Description No Information Available Vital Signs Date Vital Result Comment 02/24/2020 1:13pm BP Systolic 140 mmHg BP Diastolic 90 mmHg Height 65 inches 5'5" Weight 199.00 lb BMI (Body Mass Index) 33.1 kg/m2 [place] Body Weight 125 lb Weight 90.266 kg BSA (Body Surface Area) 1.97 m2 08/13/2019 2:37pm BP Systolic 120 mmHg BP Diastolic 86 mmHg Height 65 inches 5'5" Weight 191.00 lb BMI (Body Mass Index) 31.8 kg/m2 [place] Body Weight 125 lb Weight 86.638 kg BSA (Body Surface Area) 1.94 m2 Results Description No Information Available Procedures Description No Information Available Medical Devices Description No Information Available Encounters Type Date Location Provider Dx Diagnosis Office Visit 02/24/2020 1:15p [facility] Oswaldo vazquez MD K50.00 Crohn's disease of small intestine witho ut complications Z98.0 Intestinal bypass and anasto mosis status M45.9 Ankylosing spondylitis of un specified sites in spine Assessments Date Code Description Provider 02/24/2020 K50.00 Crohn's disease of small intesti ne without complications Oswaldo Sesay MD 02/24/2020 Z98.0 Intestinal bypass and anastomosi s status Oswaldo Sesay MD 02/24/2020 M45.9 Ankylosing spondylitis of unspec ified sites in spine Oswaldo Sesay MD Plan of Treatment Future Appointment(s):* 04/07/2020 2:30 pm - Oswaldo Sesay MD at [facility] 02/24/2020 - Oswaldo Sesay MD* K50.00 Crohn's disease of small intestine without complications * Z98.0 Intestinal bypass and anastomosis status * M45.9 Ankylosing spondylitis of unspecified sites in spine * * New Labs:* Calprotectin Stool Sendout, Ordered: 02/24/20 * Comments:* has some increase in Sx prior to the 8 week interval. I will check stool calprotectin, and will see if we need to shorten interval for entyvio infusion. * Follow up:* 1 month (or sooner PRN) Functional Status Description No Information Available Mental Status Description No Information Available Referrals Description No Information Available
--- OUTSIDE RECORDS SUMMARY | 2020-05-24 21:01 | CCD ---
Author Author [facility] Organization [facility] Address Unknown Phone Unavailable Care Team Providers Care Chip Washer Name Role Phone Araceli Chiquis Unavailable PROBLEMS Type Condition ICD9-CM Code [id number] Code Onset Dates Condition S tatus SNOMED Code Notes Problem Vitamin D deficiency E55.9 Active 93915363 Problem Depression, unspecified depression type F32.9 Active 83864692 Problem Anxiety F41.9 Active 19449229 Problem Crohn''s disease without com plication, unspecified gastrointestinal tract location K50.90 Active 94844234 Problem Lipid screening Z13.220 Active 317736083 Problem Breast cancer screening Z12.39 Active 12923603 1 Problem Discitis thoracic region M46.44 Active 1001006 02 Problem Hyperfunction of pituitary 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 899 Active 116786835 ALLERGIES Allergen (clinical drug ingredient) Drug/Non Drug Allergy do cumented on EMR Reaction Allergy Type Onset Date Status Humira palpitations Non Drug Allergy Active ENCOUNTERS from 1983 to 2020-03-15 Encounter Location Date Provider Diagnosis [facility] [address] [place] [address] Mar, Chiquis Charles Ankylosing spondylitis of sacral region M45.8 ; Weight gain R63.5 ; Long-term use of immunosuppressant medication Z79.899 ; Crohn''s disease without complication, unspecified gastrointestinal tract location K50.90 ; Cervical cancer screening Z12.4 ; Breast cancer screening Z12.39 ; Lipid screening Z13.220 ; Essential hypertension I10 ; Vitamin D deficiency E55.9 ; Anxiety F41.9 and Depression, unspecified depression type F32.9 IMMUNIZATIONS Vaccine Route Administration Date Status Depo-Medrol [...] Unknown Audit Question Answer Notes Total Score: 5 Interpretation: Alcohol Education Language: Question Answer Notes Languages spoken: Portuguese Sexual Hx: Question Answer Notes Had sex [...] FOR REFERRAL No Information VITAL SIGNS Weight 202 lbs Mar, Height 65 in Mar, BMI 33.61 kg/m2 Mar, Heart Rate 111 /min Mar, Respiratory Rate 18 /min Mar, Temperature 96.5 degrees Fahrenheit Mar, Oximetry 99% Mar, Blood pressure systolic 122 mm Hg Mar, Blood pressure diastolic 78 mm Hg Mar, MEDICATIONS Medication SIG (Take, Route, Frequency, Duration) Notes Start Da te End Date Status HydrOXYzine HCl 25 mg 1 tablet as needed Orally every 6 hrs Active Entyvio 300 MG Intravenous every 8 weeks Active Effexor XR 150 MG 187.5mg Orally Once a day for 90 day(s) Active Lisinopril 10 MG 1 tablet Orally Once a day Active Effexor XR 37.5 MG 1 capsule with food Orally O nce a day c 150mg Bykovla=491.5mg for 90 day(s) Sep, Active Sulfasalazine 500 MG 2tablet Orally bid for 30 day(s) Active Nexium 40 MG 1 capsule Orally Once a day for 30 day(s) Active Vitamin D (Cholecalciferol) 1000 UNIT 1 capsule Orally Once a day Active PROCEDURES No Information RESULTS REASON FOR VISIT follow up MEDICAL (GENERAL) HISTORY Type Description Date Medical [...] Notes Treatment Notes Treatm ent Clinical Notes Mar, Ankylosing spondylitis of sacral region (ICD-10 - M45.8) She is improved c symp.s, worse achy today so took 2000mg sulfasalazine this am. Has had her 03/03/20Entyvio; HLA-B27 pos., NEETA pos.: so no change in for now. Her h. pylori neg. No on ppi. Contingency: sulfasalazine iinc. to 2000mg bid if needed 03/2020 c rp 0.94, sed rate 32 08/29/2019 crp 1.90 08/02/2019 crp 1.78 Mar, Weight gain (ICD-10 - R63.5) Wt. up 13lbs. Mar, Long-term use of immunosuppressant medication (I CD-10 - Z79.899) Mar, Crohn''s disease without com plication, unspecified gastrointestinal tract location (ICD-10 - K50.90) Follows c Dr. Sesay on Entyvio Mar, Cervical cancer screening (ICD-10 - Z12.4) 3Y ago in [place] last pap Mar, Breast cancer screening (ICD-10 - Z12.39) ordered 04/2019 no report as yet, reordered; her grandma c breast ca c mastectomy 82 was 10-15Y also had Lymphoma Mar, Lipid screening (ICD-10 - Z13.220) 03/2020 LDL 61/HDL 64/TG 201 03/2020 Na 136, K 5.2, bun/cr 74/0.68, gluc 85, calc. 9.6, ast 22, alt 38 Mar, Essential hypertension (ICD-10 - I10) Controlled, cont. rx 03/2020 wbc 8.0, H&H 13.5&43.6, plats. 389k Mar, Vitamin D deficiency (ICD-10 - E55.9) 03/2020 vit. d 16.9, pthi 29.8 Mar, Anxiety (ICD-10 - F41.9) Well corrected Mar, Depression, unspecified depression type (ICD-10 - F32.9) Doing well as above PLAN OF TREATMENT Medication Medication Name Sig Start Date Stop Date HydrOXYzine HCl 25 mg 1 tablet as needed Orally every 6 hrs Sulfasalazine 500 MG 2tablet Orally bid for 30 day(s) Effexor XR 150 MG 187.5mg Orally Once a day for 90 day(s) Effexor XR 37.5 MG 1 capsule with food Orally O nce a day c 150mg Aljyetl=731.5mg for 90 day(s) Sep, Lisinopril 10 MG 1 tablet Orally Once a day Vitamin D (Cholecalciferol) 1000 UNIT 1 capsule Orally Once a da y Treatment Notes Assessment Notes Clinical Notes Ankylosing spondylitis of sacral region She is improved c symp.s, worse achy today so took 2000mg sulfasalazine this am. Has had her 03/03/20Entyvio; HLA-B27 pos., NEETA pos.: so no change in for now. Her h. pylori neg. No on ppi.Contingency: sulfasalazine iinc. to 2000mg bid if pyipmc93/2020 c rp 0.94, sed rate 325/ crp 1.905 crp 1.78 Weight gain Wt. up 13lbs. Crohn''s disease without complication, u nspecified gastrointestinal tract location Follows stanislaw Sesay on Enty kenisha Cervical cancer screening 3Y ago in [place] last pap Breast cancer screening ordered 04/2019 n o report as yet, reordered; her grandma c breast ca c mastectomy 82 was 10-15Y also had Lymphoma Lipid screening 03/2020 LDL 61/HDL 64/TG Na 136, K 5.2, bun/cr 74/0.68, gluc 85, calc. 9.6, ast 22, alt 38 Essential hypertension Controlled, cont. rx03/2020 wbc 8.0, H&H 13.5&43.6, plats. 389k Vitamin D deficiency 03/2020 vit. d 16. 9, pthi 29.8 Anxiety Well corrected Depression, unspecified depression type Doing well as above Treatment Notes Test Name Order Date [facility] Domenic Screening Bilateral (Ultrasound if Indicated ) (3D Mammo) 2020-03-15 Future Test Test Name Order Date FREE T4 & TSH PANEL [id number] Next Appt Details 4 Months c SS, BW today Reason: Provider Name:Chiquis Charles, 07-12 07:30:00 AM, [address] [place], [address], Insurance Providers Payer Name Payer Address Payer Phone Insured Name Patient Relati onship to Insured Coverage Start Date Coverage End Date [facility] BCBS PPO [id number] [facility] [address] [facility] [id number] DANIEL [place]
--- OUTSIDE RECORDS SUMMARY | 2020-05-24 21:01 | CCD ---
Author Author [facility] Organization [facility] Address Unknown Phone Unavailable Care Team Providers Care Aqua Ammonia Operator Name Role Phone Araceli Chiquis Unavailable PROBLEMS Type Condition ICD9-CM Code [id number] Code Onset Dates Condition S tatus SNOMED Code Notes Problem Vitamin D deficiency E55.9 Active 72032234 Problem Depression, unspecified depression type F32.9 Active 32998911 Problem Anxiety F41.9 Active 48803720 Problem Crohn''s disease without com plication, unspecified gastrointestinal tract location K50.90 Active 57238147 Problem Lipid screening Z13.220 Active 789312146 Problem Breast cancer screening Z12.39 Active 90298853 1 Problem Discitis thoracic region M46.44 Active 0397408 02 Problem Hyperfunction of pituitary gland E22.9 Active 63884684 Problem Discitis of lumbosacral region M46.47 Active 2 858274 Problem Essential hypertension I10 Active 78413594 Problem Cervical cancer screening Z12.4 Active 288545 001 Problem Sciatica, left side M54.32 Active 34567123 Problem Sciatica, right side M54.31 Active 72530583940 854607 Problem Long-term use of immunosuppressant medication Z79. 899 Active 862622122 ALLERGIES Allergen (clinical drug ingredient) Drug/Non Drug Allergy do cumented on EMR Reaction Allergy Type Onset Date Status Humira palpitations Non Drug Allergy Active ENCOUNTERS from 1983 to 2020-03-31 Encounter Location Date Provider Diagnosis [facility] [address] [place] [address] Mar, Chiquis Charles Cervicalgia M54.2 IMMUNIZATIONS Vaccine Route Administration Date Status Depo-Medrol [...] Education Language: Question Answer Notes Languages spoken: Uzbek Sexual Hx: Question Answer Notes Had sex [...] Orally O nce a day c 150mg Jmlrbtz=818.5mg for 90 day(s) Sep, Active Sulfasalazine 500 MG 2tablet Orally bid for 30 day(s) Active Nexium 40 MG 1 capsule Orally Once a day for 30 day(s) Active Vitamin D (Cholecalciferol) 1000 UNIT 1 capsule Orally Once a day Active PROCEDURES No Information RESULTS No Results REASON FOR VISIT Neck pain MEDICAL (GENERAL) HISTORY Type Description Date Medical [...] Treatment Notes Treatm ent Clinical Notes Mar, Cervicalgia (ICD-10 - M54.2) PLAN OF TREATMENT Medication Medication Name Sig Start Date Stop Date HydrOXYzine HCl 25 mg 1 tablet as needed Orally every 6 hrs Sulfasalazine 500 MG 2tablet Orally bid for 30 day(s) Effexor XR 150 MG 187.5mg Orally Once a day for 90 day(s) Effexor XR 37.5 MG 1 capsule with food Orally O nce a day c 150mg Vvooalh=118.5mg for 90 day(s) Sep, Lisinopril 10 MG 1 tablet Orally Once a day Vitamin D (Cholecalciferol) 1000 UNIT 1 capsule Orally Once a da y Treatment Notes Test Name Order Date X ray : Cervical spine w/obliques 2020-03-31 Next Appt Details Provider Name:Chiquis Charles, 04-05 08:30:00 AM, [address] [place] [address], [id number], Provider Name:Chiquis Charles, 07-12 07:30:00 AM, [address] [place], [address], Insurance Providers Payer Name Payer Address Payer Phone Insured Name Patient Relati onship to Insured Coverage Start Date Coverage End Date [employer] PPO [phone] [id number] DANIEL WORLEY self
--- OUTSIDE RECORDS SUMMARY | 2020-05-24 21:02 | CCD ---
Author Author [facility] Organization [facility] Address Unknown Phone Unavailable Care Team Providers Care Dice Person Name Role Phone RING, K CROW PA Unavailable Unavailable RING, K CROW PA Unavailable Unavailable RING, K CROW PA Unavailable Unavailable RING, K CROW PA Unavailable Unavailable RING, K CROW PA Unavailable Unavailable RING, K CROW PA Unavailable Unavailable RING, K CROW PA Unavailable Unavailable RING, K CROW PA Unavailable Unavailable RING, K CROW PA Unavailable Unavailable RING, K CROW PA Unavailable Unavailable RING, K CROW PA Unavailable Unavailable RING, K CROW PA Unavailable Unavailable RING, K CROW PA Unavailable Unavailable RING, K CROW PA Unavailable Unavailable RING, K CROW PA Unavailable Unavailable RING, K CROW PA Unavailable Unavailable RING, K CROW PA Unavailable Unavailable RING, K CROW PA Unavailable Unavailable RING, K CROW PA Unavailable Unavailable RING, K CROW PA Unavailable Unavailable RING, K CROW PA Unavailable Unavailable REINDL, CHUCK BULLARD Unavailable Unavailable REINDL, CHUCK BULLARD Unavailable Unavailable REINDL, CHUCK BULLARD Unavailable Unavailable REINDL, CHUCK BULLARD Unavailable Unavailable REINDL, CHUCK BULLARD Unavailable Unavailable REINDL, CHUCK BULLARD Unavailable Unavailable REINDL, CHUCK BULLARD Unavailable Unavailable REINDL, CHUCK BULLARD Unavailable Unavailable REINDL, CHUCK BULLARD Unavailable Unavailable REINDL, CHUCK BULLARD Unavailable Unavailable REINDL, CHUCK BULLARD Unavailable Unavailable REINDL, CHUCK BULLARD Unavailable Unavailable REINDL, CHUCK BULLARD Unavailable Unavailable REINDL, CHUCK BULLARD Unavailable Unavailable REINDL, CHUCK BULLARD Unavailable Unavailable REINDL, CHUCK BULLARD Unavailable Unavailable REINDL, CHUCK BULLARD Unavailable Unavailable REINDL, CHUCK BULLARD Unavailable Unavailable REINDL, CHUCK BULLARD Unavailable Unavailable REINDL, CHUCK BULLARD Unavailable Unavailable REINDL, CHUCK BULLARD Unavailable Unavailable REINDL, CHUCK BULLARD Unavailable Unavailable REINDL, CHUCK BULLARD Unavailable Unavailable REINDL, CHUCK BULLARD Unavailable Unavailable REINDL, CHUCK BULLARD Unavailable Unavailable REINDL, CHUCK BULLARD Unavailable Unavailable REINDL, CHUCK BULLARD Unavailable Unavailable REINDL, CHUCK BULLARD Unavailable Unavailable REINDL, CHUCK BULLARD Unavailable Unavailable REINDL, CHUCK BULLARD Unavailable Unavailable REINDL, CHUCK BULLARD Unavailable Unavailable REINDL, CHUCK BULLARD Unavailable Unavailable REINDL, CHUCK BULLARD Unavailable Unavailable REINDL, CHUCK BULLARD Unavailable Unavailable REINDL, CHUCK BULLARD Unavailable Unavailable REINDL, CHUCK BULLARD Unavailable Unavailable REINDL, CHUCK BULLARD Unavailable Unavailable REINDL, CHUCK BULLARD Unavailable Unavailable REINDL, CHUCK BULLARD Unavailable Unavailable REINDL, CHUCK BULLARD Unavailable Unavailable REINDL, CHUCK BULLARD Unavailable Unavailable REINDL, CHUCK BULLARD Unavailable Unavailable REINDL, CHUCK BULLARD Unavailable Unavailable REINDL, CHUCK BULLARD Unavailable Unavailable LETTIERE, A GUSTAVO PA Unavailable Unavailable LETTIERE, A GUSTAVO PA Unavailable Unavailable LETTIERE, A GUSTAVO PA Unavailable Unavailable LETTIERE, A GUSTAVO PA Unavailable Unavailable LETTIERE, A GUSTAVO PA Unavailable Unavailable LETTIERE, A GUSTAVO PA Unavailable Unavailable LETTIERE, A GUSTAVO PA Unavailable Unavailable LETTIERE, A GUSTAVO PA Unavailable Unavailable LETTIERE, A GUSTAVO PA Unavailable Unavailable LETTIERE, A GUSTAVO PA Unavailable Unavailable LETTIERE, A GUSTAVO PA Unavailable Unavailable LETTIERE, A GUSTAVO PA Unavailable Unavailable LETTIERE, A GUSTAVO PA Unavailable Unavailable LETTIERE, A GUSTAVO PA Unavailable Unavailable LETTIERE, A GUSTAVO PA Unavailable Unavailable LETTIERE, A GUSTAVO PA Unavailable Unavailable LETTIERE, A GUSTAVO PA Unavailable Unavailable LETTIERE, A GUSTAVO PA Unavailable Unavailable LETTIERE, A GUSTAVO PA Unavailable Unavailable LETTIERE, A GUSTAVO PA Unavailable Unavailable LETTIERE, A GUSTAVO PA Unavailable Unavailable LETTIERE, A GUSTAVO PA Unavailable Unavailable LETTIERE, A GUSTAVO PA Unavailable Unavailable LETTIERE, A GUSTAVO PA Unavailable Unavailable LETTIERE, A GUSTAVO PA Unavailable Unavailable LETTIERE, A GUSTAVO PA Unavailable Unavailable LETTIERE, A GUSTAVO PA Unavailable Unavailable LETTIERE, A GUSTAVO PA Unavailable Unavailable LETTIERE, A GUSTAVO PA Unavailable Unavailable Re-disclosure Warning The records that you are about to access may contain information from federally-assisted alcohol or drug abuse programs. If such information is present, then the following federally mandated warning applies: This information has been disclosed to you from records protected by federal confidentiality rules (42 CFR part 2). The federal rules prohibit you from making any further disclosure of this information unless further disclosure is expressly permitted by the written consent of the person to whom it pertains or as otherwise permitted by 42 CFR part 2. A general authorization for the release of medical or other information is NOT sufficient for this purpose. The Federal rules restrict any use of the information to criminally investigate or prosecute any alcohol or drug abuse patient.The records that you are about to access may contain highly sensitive health information, the redisclosure of which is protected by Article 27-F of the [facility] Public Health law. If you continue you may have access to information: Regarding HIV / AIDS; Provided by facilities licensed or operated by the [facility] Office of Mental Health; or Provided by the [facility] Office for People With Developmental Disabilities. If such information is present, then the following [facility] mandated warning applies: This information has been disclosed to you from confidential records which are protected by state law. State law prohibits you from making any further disclosure of this information without the specific written consent of the person to whom it pertains, or as otherwise permitted by law. Any unauthorized further disclosure in violation of state law may result in a fine or retirement sentence or both. A general authorization for the release of medical or other information is NOT sufficient authorization for further disc losure. Allergies and Adverse Reactions Type Description Substance Reaction Status Data Source(s ) Humira Humira Humira palpitations Active eCW1 ([facility]) Humira Humira Humira palpitations Active eCW1 ([facility]) Drug Allergy NKDA NKDA MEDENT ([facility]) Family History Family Member Name Family Member Gender Family Member Status Date o f Status Description Data Source(s) Unknown Unknown Problem MEDENT ([facility]) GF and bone Unknown Male Problem MEDENT ([facility] ) () - at age 58 Unknown Male Problem MEDENT ([facility] ) Unknown Male Problem MEDENT ([facility] ) Unknown Male Problem MEDENT ([facility] ) Unknown Unknown Problem MEDENT ([facility]) Unknown Unknown Problem MEDENT ([facility]) Unknown Unknown Problem MEDENT ([facility]) pgf Encounters Encounter Providers Location Date Indications Data Source(s ) Outpatient [address] [facility], [facility] [address] 04/21/2020 12:00:00 AM EST eCW1 ([facility]) Unknown [address] [facility] [place] [address] 04/08/2020 12:00:00 AM EST eCW1 ([facility]) Unknown [address] [facility] [address] 03/31/2020 12:00:00 AM EST eCW1 ([facility]) Outpatient [address] [facility] [place] [address] 03/10/2020 12:00:00 AM EST eCW1 ([facility]) Outpatient Attender: CHUCK Syed/Sachi/Doug/Karl vazquez 02/24/2020 12:15:00 PM EST MEDENT ([facility] Unknown [address] [facility] [place] [address] 02/02/2020 12:00:00 AM EST eCW1 ([facility]) [place] [address] [facility] [address] 01/27/2020 12:00:00 AM EDT eCW1 ([facility]) Outpatient Attender: GUSTAVO silverio 12/05/2019 03:40:00 PM EDT MEDENT ([facility], [facility]) [facility] [address] [facility] [address] 11/10/2019 12:00:00 AM EDT eCW1 ([facility]) Unknown [address] [facility] [address] 10/16/2019 12:00:00 AM EDT [facility]CW1 [facility] [place] [address] [facility] [address] 10/15/2019 12:00:00 AM EDT eCW1 ([facility]) Unknown [address] [facility] [place] [address] 10/08/2019 12:00:00 AM EDT eCW1 ([facility]) Unknown [address] [facility] [address] 09/03/2019 12:00:00 AM EDT eCW1 ([facility]) Outpatient [address] [facility] [place] [address] 08/29/2019 12:00:00 AM EDT eCW1 ([facility]) [facility] [address] [facility] [address] 08/29/2019 12:00:00 AM EDT eCW1 ([facility]) [facility] [address] [facility] [place] [address] 08/18/2019 12:00:00 AM EDT eCW1 ([facility]) Outpatient Attender: CHUCK Syed/Sachi/Lucas vazquez 08/13/2019 02:30:00 PM EDT MEDENT ([facility]) [facility] [address] [facility] [address] 08/04/2019 12:00:00 AM EDT eCW1 ([facility]) [facility] [address] [facility] [address] 08/01/2019 12:00:00 AM EDT eCW1 ([facility]) [facility] [address] [place] [address], [place] [address] 08/01/2019 12:00:00 AM EDT eCW1 ([facility]) [facility] [address] [place] [address], [place] [address] 07/15/2019 12:00:00 AM EDT eCW1 ([facility]) [facility] [address] [place] [address], [place] [address] 07/10/2019 12:00:00 AM EDT eCW1 ([facility]) [facility] [address] [place] [address], [place] [address] 07/04/2019 12:00:00 AM EDT eCW1 ([facility]) [facility] [address] [place] [address], [place] [address] 07/03/2019 12:00:00 AM EDT eCW1 ([facility]) [facility] [address] [place] [address], [place] [address] 07/01/2019 12:00:00 AM EDT eCW1 ([facility]) [address] [address] 07/01/2019 12:00:00 AM EDT eCW1 ([facility]) [facility] [address] [place] [address], [place] [address] 06/27/2019 12:00:00 AM EDT eCW1 ([facility]) [address] [address] 06/27/2019 12:00:00 AM EDT eCW1 ([facility]) [address] [address] 06/25/2019 12:00:00 AM EDT eCW1 ([facility]) [address] [address] 06/24/2019 12:00:00 AM EDT eCW1 ([facility]) [address] [address] 06/24/2019 12:00:00 AM EDT eCW1 ([facility]) [address] [address] 06/19/2019 12:00:00 AM EDT eCW1 ([facility]) Outpatient Attender: CROW Mccall 06/01/2019 09:00:00 AM EST MEDENT ([facility], [facility]) [address] [address] 04/10/2019 12:00:00 AM EST eCW1 ([facility]) Immunizations Vaccine Date Status Description Data Source(s) Depo-Medrol 80mg (Methylprednisolone Acetate) 07/04/2019 11: 38:00 AM EDT completed eCW1 ([facility]) Depo-Medrol 80mg (Methylprednisolone Acetate) 07/04/2019 11: 38:00 AM EDT completed eCW1 ([facility]) Depo-Medrol 80mg (Methylprednisolone Acetate) 07/04/2019 11: 38:00 AM EDT completed eCW1 ([facility]) Depo-Medrol 80mg (Methylprednisolone Acetate) 07/04/2019 11: 38:00 AM EDT completed eCW1 ([facility]) Depo-Medrol 80mg (Methylprednisolone Acetate) 07/04/2019 11: 38:00 AM EDT completed eCW1 ([facility]) Depo-Medrol 80mg (Methylprednisolone Acetate) 07/04/2019 11: 38:00 AM EDT completed eCW1 ([facility]) Depo-Medrol 80mg (Methylprednisolone Acetate) 07/04/2019 11: 38:00 AM EDT completed eCW1 ([facility]) Depo-Medrol 80mg (Methylprednisolone Acetate) 07/04/2019 11: 38:00 AM EDT completed eCW1 ([facility]) Depo-Medrol 80mg (Methylprednisolone Acetate) 07/04/2019 11: 38:00 AM EDT completed eCW1 ([facility]) Medications Medication Brand Name Start Date Product Form Dose Route Admi nistrative Instructions Pharmacy Instructions Status Indications Reaction Description Data Source(s) 37.5 mg 03/30/2020 12:00:00 AM EST capsule,extended releas e 24hr 90 TAKE ONE CAPSULE BY MOUTH EVERY DAY WITH FOOD TAKE ONE CAPSULE BY MOUTH EVERY DAY WITH FOOD SOLD: 03/30/2020 [facility] 150 mg 03/30/2020 12:00:00 AM EST capsule,extended releas e 24hr 90 TAKE ONE CAPSULE BY MOUTH EVERY DAY TAKE ONE CAPSULE BY MOUTH EVERY DAY SOLD: 03/30/2020 [facility] Esomeprazole 40 MG Delayed Release Oral Capsule ESOMEPRAZOLE MAGNESIUM 02/25/2020 12:00:00 AM EST capsule,delayed release(DR/EC) 30 TAKE ONE CAPSULE BY MOUTH EVERY DAY TAKE ONE CAPSULE BY MOUTH EVERY DAY SOLD: 04/03/2020 [facility] Esomeprazole 40 MG Delayed Release Oral Capsule ESOMEPRAZOLE MAGNESIUM 02/25/2020 12:00:00 AM EST capsule,delayed release(DR/EC) 30 TAKE ONE CAPSULE BY MOUTH EVERY DAY TAKE ONE CAPSULE BY MOUTH EVERY DAY SOLD: 05/05/2020 [facility] Esomeprazole 40 MG Delayed Release Oral Capsule ESOMEPRAZOLE MAGNESIUM 02/25/2020 12:00:00 AM EST capsule,delayed release(DR/EC) 30 TAKE ONE CAPSULE BY MOUTH EVERY DAY TAKE ONE CAPSULE BY MOUTH EVERY DAY SOLD: 03/03/2020 [facility] 500 mg 01/01/2020 12:00:00 AM EDT tablet 360 TAKE TWO TABLETS BY MOUTH TWICE A DAY TAKE TWO TABLETS BY MOUTH TWICE A DAY SOLD: 01/02/2020 [facility] 4 mg 12/05/2019 12:00:00 AM EDT tablet,disintegrating 1 5 DISSOLVE 1 TABLET IN MOUTH EVERY 8 HOURS NEEDED FOR NAUSEA DISSOLVE 1 TABLET IN MOUTH EVERY 8 HOURS NEEDED FOR NAUSEA SOLD: 12/05/2019 [facility] 4 mg 12/05/2019 12:00:00 AM EDT tablet,disintegrating 1 5 DISSOLVE 1 TABLET IN MOUTH EVERY 8 HOURS NEEDED FOR NAUSEA DISSOLVE 1 TABLET IN MOUTH EVERY 8 HOURS NEEDED FOR NAUSEA SOLD: 01/17/2020 [facility] Prednisone 20 MG Oral Tablet Prednisone 12/05/2019 12:00:00 AM EDT active MEDENT ([facility]) Ondansetron 4 MG Disintegrating Oral Tablet Ondansetron 12/05/2019 12:00:00 AM EDT active MEDENT ([facility], [facility]) 20 mg 12/05/2019 12:00:00 AM EDT tablet 10 TAKE ONE TABLET BY MOUTH TWICE A DAY FOR 5 DAYS TAKE ONE TABLET BY MOUTH TWICE A DAY FOR 5 DAYS SOLD: 2019 [facility] 10 mg 11/10/2019 12:00:00 AM EDT tablet 30 TAKE ONE TABLET BY MOUTH EVERY MORNING TAKE ONE TABLET BY MOUTH EVERY MORNING SOLD: 04/03/2020 [facility] 10 mg 11/10/2019 12:00:00 AM EDT tablet 30 TAKE ONE TABLET BY MOUTH EVERY MORNING TAKE ONE TABLET BY MOUTH EVERY MORNING SOLD: 05/22/2020 [facility] 10 mg 11/10/2019 12:00:00 AM EDT tablet 30 TAKE ONE TABLET BY MOUTH EVERY MORNING TAKE ONE TABLET BY MOUTH EVERY MORNING SOLD: 11/16/2019 [facility] 150 mg 10/16/2019 12:00:00 AM EDT capsule,extended releas e 24hr 90 TAKE ONE CAPSULE BY MOUTH ONCE A DAY TAKE ONE CAPSULE BY MOUTH ONCE A DAY SOLD: 01/24/2020 [facility] 150 mg 10/16/2019 12:00:00 AM EDT capsule,extended releas e 24hr 90 TAKE ONE CAPSULE BY MOUTH ONCE A DAY TAKE ONE CAPSULE BY MOUTH ONCE A DAY SOLD: 10/19/2019 [facility] 37.5 mg 10/16/2019 12:00:00 AM EDT capsule,extended releas e 24hr 90 TAKE ONE CAPSULE BY MOUTH EVERY DAY WITH FOOD WITH 150MG ONCE DAILY TAKE ONE CAPSULE BY MOUTH EVERY DAY WITH FOOD WITH 150MG ONCE DAILY SOLD: 10/19/2019 [facility] 37.5 mg 10/16/2019 12:00:00 AM EDT capsule,extended releas e 24hr 90 TAKE ONE CAPSULE BY MOUTH EVERY DAY WITH FOOD WITH 150MG ONCE DAILY TAKE ONE CAPSULE BY MOUTH EVERY DAY WITH FOOD WITH 150MG ONCE DAILY SOLD: 01/24/2020 [facility] 24 HR venlafaxine 37.5 MG Extended Relea se Oral Capsule [Effexor] Effexor XR 37.5 MG Effexor XR 37.5 MG 10/15/2019 12:00:00 AM EDT 1.0 {cap sule_with_food} active Effexor XR 37.5 MG e CW1 ([facility]) 24 HR venlafaxine 37.5 MG Extended Relea se Oral Capsule [Effexor] Effexor XR 37.5 MG Effexor XR 37.5 MG 10/15/2019 12:00:00 AM EDT 1.0 {cap sule_with_food} active Effexor XR 37.5 MG e CW1 ([facility]) 24 HR venlafaxine 37.5 MG Extended Relea se Oral Capsule [Effexor] Effexor XR 37.5 MG Effexor XR 37.5 MG 10/15/2019 12:00:00 AM EDT 1.0 {cap sule_with_food} active Effexor XR 37.5 MG e CW1 ([facility]) 24 HR venlafaxine 37.5 MG Extended Relea se Oral Capsule [Effexor] Effexor XR 37.5 MG Effexor XR 37.5 MG 10/15/2019 12:00:00 AM EDT 1.0 {cap sule_with_food} active Effexor XR 37.5 MG e CW1 ([facility]) 24 HR venlafaxine 37.5 MG Extended Relea se Oral Capsule [Effexor] Effexor XR 37.5 MG Effexor XR 37.5 MG 10/15/2019 12:00:00 AM EDT 1.0 {cap sule_with_food} active Effexor XR 37.5 MG e CW1 ([facility]) 24 HR venlafaxine 37.5 MG Extended Relea se Oral Capsule [Effexor] Effexor XR 37.5 MG Effexor XR 37.5 MG 10/15/2019 12:00:00 AM EDT 1.0 {cap sule_with_food} active Effexor XR 37.5 MG e CW1 ([facility]) 24 HR venlafaxine 37.5 MG Extended Relea se Oral Capsule [Effexor] Effexor XR 37.5 MG Effexor XR 37.5 MG 10/15/2019 12:00:00 AM EDT 1.0 {cap sule_with_food} active Effexor XR 37.5 MG e CW1 ([facility]) 24 HR venlafaxine 37.5 MG Extended Relea se Oral Capsule [Effexor] Effexor XR 37.5 MG Effexor XR 37.5 MG 10/15/2019 12:00:00 AM EDT 1.0 {cap sule_with_food} active Effexor XR 37.5 MG e CW1 ([facility]) 24 HR venlafaxine 37.5 MG Extended Relea se Oral Capsule [Effexor] Effexor XR 37.5 MG Effexor XR 37.5 MG 10/15/2019 12:00:00 AM EDT 1.0 {cap sule_with_food} active Effexor XR 37.5 MG e CW1 ([facility]) 500 mg 08/21/2019 12:00:00 AM EDT tablet 120 TAKE TWO TABLETS BY MOUTH TWICE A DAY TAKE TWO TABLETS BY MOUTH TWICE A DAY SOLD: 08/31/2019 [facility] 500 mg 08/01/2019 12:00:00 AM EDT tablet 120 TAKE ONE TABLET BY MOUTH EVERY 6 HOURS NEEDED TAKE ONE TABLET BY MOUTH EVERY 6 HOURS NEEDED SOLD: 08/02/2019 [facility] Sulfasalazine 500 MG Oral Tablet Sulfasalazine 500 MG 2019 12:00:00 AM EDT active 2 tablet eCW1 ([facility]) 100 mg 08/01/2019 12:00:00 AM EDT capsule 90 TAKE THREE CAPSULES BY MOUTH THREE TIMES A DAY TAKE THREE CAPSULES BY MOUTH THREE TIMES A DAY SOLD: 08/02/2019 [facility] Sulfasalazine 500 MG Oral Tablet Sulfasalazine 500 MG 2019 12:00:00 AM EDT active 1 tablet eCW1 ([facility]) 500 mg 08/01/2019 12:00:00 AM EDT tablet 60 TAKE ONE TABLET BY MOUTH TWICE A DAY TAKE ONE TABLET BY MOUTH TWICE A DAY SOLD: 08/02/2019 [facility] 200 mg 07/10/2019 12:00:00 AM EDT capsule 60 TAKE ONE CAPSULE BY MOUTH TWICE A DAY WITH FOOD TAKE ONE CAPSULE BY MOUTH TWICE A DAY WITH FOOD SOLD: 07/11/2019 [facility] 4 mg 07/04/2019 12:00:00 AM EDT tablet 14 TAKE ONE TABLET BY MOUTH TWICE A DAY WITH FOOD FOR 7 DAYS TAKE ONE TABLET BY MOUTH TWICE A DAY WIT H FOOD FOR 7 DAYS SOLD: 07/04/2019 [facility] 100 mg 07/01/2019 12:00:00 AM EDT capsule 180 TAKE TWO CAPSULES BY MOUTH THREE TIMES A DAY TAKE TWO CAPSULES BY MOUTH THREE TIMES A DAY SOLD: 0 [facility] celecoxib 200 MG Oral Capsule [Celebrex] Celebrex 200 MG Shi ebrex 200 MG 06/27/2019 12:00:00 AM EDT active 1 capsule with food eCW1 ([facility]) celecoxib 200 MG Oral Capsule [Celebrex] Celebrex 200 MG Shi ebrex 200 MG 06/27/2019 12:00:00 AM EDT active 1 capsule with food eCW1 ([facility]) 200 mg 06/27/2019 12:00:00 AM EDT capsule 14 TAKE ONE CAPSULE BY MOUTH TWICE A DAY WITH FOOD TAKE ONE CAPSULE BY MOUTH TWICE A DAY WITH FOOD SOLD: 06/27/2019 [facility] Methocarbamol 500 MG Oral Tablet Methocarbamol 500 MG 2019 12:00:00 AM EDT active 1 tablets eCW1 ([facility]) Methocarbamol 500 MG Oral Tablet Methocarbamol 500 MG 2019 12:00:00 AM EDT active 1 tablets eCW1 ([facility]) Menthol 100 MG/ML / methyl salicylate 30 0 MG/ML Topical Cream [Icy Hot with Methyl Salicylate] Icy Hot [place] Extra Strength 7.6-29 % Icy Hot [place] Extra Strength 7.6-29 % 06/24/2019 12:00:00 AM EDT active Icy Hot [place] Extra Strength 7.6-29 % eCW1 ([facility]) Menthol 100 MG/ML / methyl salicylate 30 0 MG/ML Topical Cream Icy Hot [place] Extra Strength 7.6-29 % Icy Hot [place] Extra Strength 7.6-29 % 06/24/2019 12:00: 00 AM EDT active Icy Hot [place] Extr a Strength 7.6-29 % eCW1 ([facility]) Menthol 100 MG/ML / methyl salicylate 30 0 MG/ML Topical Cream [Icy Hot with Methyl Salicylate] Icy Hot [place] Extra Strength 7.6-29 % Icy Hot [place] Extra Strength 7.6-29 % 06/24/2019 12:00:00 AM EDT activ e as directed eCW1 ([facility]) gabapentin 100 MG Oral Capsule Gabapentin 100 MG Gabapentin 100 MG 06/24/2019 12:00:00 AM EDT active 1 capsul e eCW1 ([facility]) Menthol 100 MG/ML / methyl salicylate 30 0 MG/ML Topical Cream [Icy Hot with Methyl Salicylate] Icy Hot [place] Extra Strength 7.6-29 % Icy Hot [place] Extra Strength 7.6-29 % 06/24/2019 12:00:00 AM EDT activ e as directed eCW1 ([facility]) gabapentin 100 MG Oral Capsule Gabapentin 100 MG Gabapentin 100 MG 06/24/2019 12:00:00 AM EDT active 2 capsul e eCW1 ([facility]) Menthol 100 MG/ML / methyl salicylate 30 0 MG/ML Topical Cream Icy Hot [place] Extra Strength 7.6-29 % Icy Hot [place] Extra Strength 7.6-29 % 06/24/2019 12:00: 00 AM EDT active Icy Hot [place] Extr a Strength 7.6-29 % eCW1 ([facility]) 100 mg 06/24/2019 12:00:00 AM EDT capsule 90 TAKE ONE CAPSULE BY MOUTH THREE TIMES A DAY TAKE ONE CAPSULE BY MOUTH THREE TIMES A DAY SOLD: 06/24/2019 [facility] 500 mg 06/24/2019 12:00:00 AM EDT tablet 120 TAKE 1 TABLET BY MOUTH EVERY 6 HOURS NEEDED TAKE 1 TABLET BY MOUTH EVERY 6 HOURS NEEDED SOLD: 020 [facility] Menthol 100 MG/ML / methyl salicylate 30 0 MG/ML Topical Cream [Icy Hot with Methyl Salicylate] Icy Hot [place] Extra Strength 7.6-29 % Icy Hot [place] Extra Strength 7.6-29 % 06/24/2019 12:00:00 AM EDT active Icy Hot [place] Extra Strength 7.6-29 % eCW1 ([facility]) Menthol 100 MG/ML / methyl salicylate 30 0 MG/ML Topical Cream [Icy Hot with Methyl Salicylate] Icy Hot [place] Extra Strength 7.6-29 % Icy Hot [place] Extra Strength 7.6-29 % 06/24/2019 12:00:00 AM EDT active Icy Hot [place] Extra Strength 7.6-29 % eCW1 ([facility]) gabapentin 100 MG Oral Capsule Gabapentin 100 MG Gabapentin 100 MG 06/24/2019 12:00:00 AM EDT active 2 capsul e eCW1 ([facility]) Menthol 100 MG/ML / methyl salicylate 30 0 MG/ML Topical Cream [Icy Hot with Methyl Salicylate] Icy Hot [place] Extra Strength 7.6-29 % Icy Hot [place] Extra Strength 7.6-29 % 06/24/2019 12:00:00 AM EDT active Icy Hot [place] Extra Strength 7.6-29 % eCW1 ([facility]) Menthol 100 MG/ML / methyl salicylate 30 0 MG/ML Topical Cream [Icy Hot with Methyl Salicylate] Icy Hot [place] Extra Strength 7.6-29 % Icy Hot [place] Extra Strength 7.6-29 % 06/24/2019 12:00:00 AM EDT activ e as directed eCW1 ([facility]) Menthol 100 MG/ML / methyl salicylate 30 0 MG/ML Topical Cream [Icy Hot with Methyl Salicylate] Icy Hot [place] Extra Strength 7.6-29 % Icy Hot [place] Extra Strength 7.6-29 % 06/24/2019 12:00:00 AM EDT active [employer] [place] Extra Strength 7.6-29 % eCW1 ([facility]) tizanidine 4 MG Oral Capsule Tizanidine HCL 06/01/2019 12:00:00 AM EST ORAL active MEDENT ([facility], [facility]) Methylprednisolone Methylprednisolone 06/01/2019 12:00:00 AM EST active MEDENT ([facility], [facility]) 150 mg 04/10/2019 12:00:00 AM EST capsule,extended releas e 24hr 90 TAKE ONE CAPSULE BY MOUTH EVERY DAY ONCE A DAY ALONG WITH 37.5MG CAPSULE TAKE ONE CAPSULE BY MOUTH EVERY DAY ONCE A DAY ALONG WITH 37.5MG CAPSULE SOLD: 06/29/2019 [facility] 150 mg 04/10/2019 12:00:00 AM EST capsule,extended releas e 24hr 30 TAKE ONE CAPSULE BY MOUTH EVERY DAY ONCE A DAY ALONG WITH 37.5MG CAPSULE TAKE ONE CAPSULE BY MOUTH EVERY DAY ONCE A DAY ALONG WITH 37.5MG CAPSULE SOLD: 04/11/2019 [facility] 150 mg 04/10/2019 12:00:00 AM EST capsule,extended releas e 24hr 30 TAKE ONE CAPSULE BY MOUTH EVERY DAY ONCE A DAY ALONG WITH 37.5MG CAPSULE TAKE ONE CAPSULE BY MOUTH EVERY DAY ONCE A DAY ALONG WITH 37.5MG CAPSULE SOLD: 05/24/2019 [facility] 37.5 mg 04/10/2019 12:00:00 AM EST capsule,extended releas e 24hr 30 TAKE ONE CAPSULE BY MOUTH EVERY DAY WITH FOOD ONCE A DAY TAKE ONE CAPSULE BY MOUTH EVERY DAY WITH FOOD ONCE A DAY SOLD: 05/24/2019 [facility] 37.5 mg 04/10/2019 12:00:00 AM EST capsule,extended releas e 24hr 90 TAKE ONE CAPSULE BY MOUTH EVERY DAY WITH FOOD ONCE A DAY TAKE ONE CAPSULE BY MOUTH EVERY DAY WITH FOOD ONCE A DAY SOLD: 06/29/2019 [facility] Naproxen 250 MG Oral Tablet Naproxen 250 MG 04/10/2019 12:00:00 AM EST active 1 tablet with food or milk e CW1 ([facility]) 2 mg 04/10/2019 12:00:00 AM EST tablet 42 TAKE ONE TABLET BY MOUTH THREE TIMES A DAY NEEDED FOR 14 DAYS TAKE ONE TABLET BY MOUTH THREE TIMES A D AY NEEDED FOR 14 DAYS SOLD: 04/11/2019 [facility] tizanidine 2 MG Oral Tablet Tizanidine HCl 2 MG Tizanidine H Cl 2 MG 04/10/2019 12:00:00 AM EST active 1 tablet as needed eCW1 ([facility]) 37.5 mg 04/10/2019 12:00:00 AM EST capsule,extended releas e 24hr 30 TAKE ONE CAPSULE BY MOUTH EVERY DAY WITH FOOD ONCE A DAY TAKE ONE CAPSULE BY MOUTH EVERY DAY WITH FOOD ONCE A DAY SOLD: 04/11/2019 [facility] Insurance Providers Payer name Policy type / Coverage type Policy ID Covered democrat ID Covered democrat's relationship to miranda Policy Miranda Plan Information [place] 302/307 [id number] SP [id number] [employer] BC-BS PPO 306 [id number] SP [id number] [place] P[place] 302/307 [id number] SP [id number] [employer] BC-BS PPO 306 [id number] SP [id number] [place] 306/806 [id number] SP [id number] [facility] [id number] SP [id number] [employer] BC-BS PPO 306 [id number] SP [id number] [place] 306/806 [id number] SP [id number] [place] 306/806 [id number] SP [id number] [employer] BC-BS PPO 306 [id number] SP [id number] [facility] [id number] SP [id number] [facility] [place] [id number] SP [id number] [facility] COMMUNITY [facility]AN [facility] [id number] SP [id number] SELF PAY ONLY [id number] SP [id number] ANSI-Commercial [id number] ANSI-Commercial [id number] ANSI-Medicaid [id number] [facility] Health Maintenance [facility] ([facility]) [id number] Self [id number] [employer] BCBS Medigap Part B [id number] Family Dependent [id number] [facility] [id number] SP [id number] [facility] [id number] SP [id number] [place] P[place] 302/307 [id number] [facility] [id number] SP [id number] [facility] [id number] SP [id number] [place] PPO 302/307 [id number] ANSI-Medicaid [id number] ANSI-Commercial [id number] ANSI-Commercial [id number] ANSI-Commercial [id number] ANSI-Commercial [id number] ANSI-Medicaid [id number] [facility] Health Maintenance [facility] ([facility]) [id number] Self [id number] [facility] Health Maintenance [facility] (O) [id number] Self [id number] [employer] BCBS Health Maintenance Organization (HMO) [id number] Family Dependent [id number] [employer] BCBS B [id number] S [id number] [employer] BCBS Health Maintenance Organization (HMO) [id number] Family Dependent [id number] Ghi FHP-(DO Not Use) Medigap Part B [id number] Self [id number] Medicaid [place] Medigap Part B [id number] Self [id number] MVP (pr) Commercial [id number] Self [id number] [address] [place] Commercial [id number] Self [id number] BCBS [place] PPO 302/307 [id number] BCBS/Blue Card Commercial [id number] Family Dependent [id number] BC/BS PPO/EPO (28) [id number] [facility] [id number] SP [id number] VALUE OPTIONS (MVP) [id number] SP [id number] [employer] Blue Cross Commercial Family Dependent EXCELLUS BCBS [id number] Spo PYN [id number] [facility] (OUT OF STATE - ALL) [id number] MVP (HMO/PPO) HEALTH CARE [id number] 0 [id number] MVP (HMO/PPO) HEALTH CARE [id number] 1 [id number] MVP Commercial Self MVP HEALTH CARE O [id number] S [id number] [facility] PHY [id number] SP [id number] Problems, Conditions, and Diagnoses Code Display Name Description Problem Type Effective Dates Data Source(s) Z79.899 [id number] Long-term use of immunosuppressant medica tion Problem 07/01/2019 12:00:00 AM EDT eCW1 ([facility]) M46.47 [id number] Discitis of lumbosacral region Problem 07/01/2019 12:00:00 AM EDT eCW1 ([facility]) M46.44 [id number] Discitis thoracic region Problem 07/01/2019 12:00:00 AM EDT eCW1 ([facility]) Z79.899 [id number] Long-term use of immunosuppressant medica tion Problem 07/01/2019 12:00:00 AM EDT eCW1 ([facility]) M46.47 8798772 Discitis of lumbosacral region Problem 07/01/2019 12:00:00 AM EDT eCW1 ([facility]) M46.44 [id number] Discitis thoracic region Problem 07/01/2019 12:00:00 AM EDT eCW1 ([facility]) M54.31 [id number] Sciatica, right side Problem 12:00:00 AM EDT eCW1 ([facility]) M54.32 [id number] Sciatica, left side Problem 06/24/2019 12:00 :00 AM EDT eCW1 ([facility]) M54.31 [id number] Sciatica, right side Problem 12:00:00 AM EDT eCW1 ([facility]) M54.32 70804911 Sciatica, left side Problem 06/24/2019 12:00 :00 AM EDT eCW1 ([facility]) Z12.4 [id number] Cervical cancer screening Problem 04/10/2019 12:00:00 AM EST eCW1 ([facility]) Z12.39 [id number] Breast cancer screening Problem 04/10/2019 1 2:00:00 AM EST eCW1 ([facility]) Z13.220 [id number] Lipid screening Problem 04/10/2019 12:00:00 AM EST eCW1 ([facility]) K50.90 10799102 Crohn''s disease wit hout complication, unspecified gastrointestinal tract location Problem 04/10/2019 12:00:00 AM EST e CW1 ([facility]) Z12.4 [id number] Cervical cancer screening Problem 04/10/2019 12:00:00 AM EST eCW1 ([facility]) Z12.39 [id number] Breast cancer screening Problem 04/10/2019 1 2:00:00 AM EST eCW1 ([facility]) Z13.220 [id number] Lipid screening Problem 04/10/2019 12:00:00 AM EST eCW1 ([facility]) K50.90 [id number] Crohn''s disease wit hout complication, unspecified gastrointestinal tract location Problem 04/10/2019 12:00:00 AM EST e CW1 ([facility]) Surgeries/Procedures Procedure Description Date Indications Data Source(s) URINE-NO MICRO 06/24/2019 12:00:00 AM EDT eCW1 ([facility]) Results ID Date Data Source LIPID PANEL (CARDIAC RISK) 03/10/2020 12:00:00 AM EST eCW1 ( [facility]) Name Value Range Interpretation Code Description Data Inga rce(s) Supporting Document(s) Triglyceride [Mass/volume] in Serum or Plasma by calculation 201 <150 TRIGLYCERIDES LEVEL eCW1 ([facility]) Cholesterol in LDL [Mass/volume] in Serum or Plasma by calculation 61 <100 LDL CHOLESTEROL eCW1 ([facility]) Cholesterol [Moles/volume] in Serum or Plasma 165 <200 CHOLESTEROL LEVEL eCW1 ([facility]) Cholesterol in HDL [Moles/volume] in Serum or Plasma 64 >40 HDL CHOLESTEROL eCW1 ([facility]) 101 NON-HDL-C eCW1 ([facility]) 2.578 <5 CHOLESTEROL RISK RATIO eCW1 ([facility]) ID Date Data Source FREE T4 & TSH PANEL 03/10/2020 12:00:00 AM EST eCW1 ([facility]) Name Value Range Interpretation Code Description Data Inga rce(s) Supporting Document(s) 3.690 0.358-3.740 THYROID STIMULATING HORM ONE eCW1 ([facility]) 0.93 0.76-1.46 FREE T4 eCW1 ([facility]) ID Date Data Source PTH INTACT 03/10/2020 12:00:00 AM EST eCW1 ([facility]) Name Value Range Interpretation Code Description Data Inga rce(s) Supporting Document(s) 29.8 18.5-88.0 eCW1 ([facility]) ID Date Data Source VITAMIN D 25-HYDROXY 03/10/2020 12:00:00 AM EST eCW1 ([facility]) Name Value Range Interpretation Code Description Data Inga rce(s) Supporting Document(s) 16.9 30.0-100.0 TOTAL 25(OH) VITAMIN D eC W1 ([facility]) ID Date Data Source ERYTHROCYTE SEDIMENTATION RATE 03/10/2020 12:00:00 AM EST eC W1 ([facility]) Name Value Range Interpretation Code Description Data Inga rce(s) Supporting Document(s) 32 0-20 ERYTHROCYTE SEDIMENTATION RATE eCW1 ([facility]) ID Date Data Source C REACTIVE PROTEIN QUANTITATIV (At [facility]) 03/10/2020 12:00 :00 AM EST eCW1 ([facility]) Name Value Range Interpretation Code Description Data Inga rce(s) Supporting Document(s) 0.94 0.00-0.30 C REACTIVE PROTEIN QUANTI TATIV eCW1 ([facility]) ID Date Data Source Comprehensive Metabolic Profile (CMP) 03/10/2020 12:00:00 AM EST eCW1 ([facility]) Name Value Range Interpretation Code Description Data Inga rce(s) Supporting Document(s) 85 70-100 GLUCOSE, FASTING eCW1 ([facility]) 14 7-18 BLOOD UREA NITROGEN eCW1 ([facility]) 0.68 0.55-1.30 CREATININE FOR GFR eCW1 ([facility]) > 60.0 >60 GLOMERULAR FILTRATION RATE eCW 1 ([facility]) 136 136-145 SODIUM LEVEL eCW1 ([facility]) 103 98-107 CHLORIDE LEVEL eCW1 ([facility]) 5.2 3.5-5.1 POTASSIUM SERUM eCW1 ([facility]) 32 21-32 CARBON DIOXIDE LEVEL eCW1 ([facility]) 9.6 8.5-10.1 CALCIUM LEVEL eCW1 ([facility]) 22 7-37 AST/SGOT eCW1 ([facility]) 80 45-117 ALKALINE PHOSPHATASE eCW1 ([facility]) 38 12-78 ALT/SGPT eCW1 ([facility]) 7.9 6.4-8.2 TOTAL PROTEIN eCW1 ([facility]) 0.3 0.2-1.0 BILIRUBIN,TOTAL eCW1 ([facility]) 3.6 3.2-5.2 ALBUMIN eCW1 ([facility]) 0.8 1.2-2.2 ALBUMIN/GLOBULIN RATIO eCW1 ([facility]) ID Date Data Source CBC with Differential 03/10/2020 12:00:00 AM EST eCW1 ([facility]) Name Value Range Interpretation Code Description Data Inga rce(s) Supporting Document(s) 4.65 4.00-5.40 RED BLOOD COUNT eCW1 ([facility]) 8.0 4.0-10.0 WHITE BLOOD COUNT eCW1 ([facility]) 13.5 12.0-15.5 HEMOGLOBIN eCW1 ([facility]) 93.8 80.0-96.0 MEAN CORPUSCULAR VOLUME e CW1 ([facility]) 43.6 36.0-47.0 HEMATOCRIT eCW1 ([facility]) 29.0 27.0-33.0 MEAN CORPUSCULAR HEMOGLOB IN eCW1 ([facility]) 31.0 32.0-36.5 MEAN CORPUSCULAR HGB CONC eCW1 ([facility]) 23.7 24.0-44.0 LYMPH % eCW1 ([facility]) 63.4 36.0-66.0 NEUTROPHILS % eCW1 ([facility]) 13.1 11.5-14.5 RED CELL DISTRIBUTION WID TH eCW1 ([facility]) 389 150-450 PLATELET COUNT, AUTOMATED eCW1 ([facility]) 11.7 0.0-5.0 MONO % eCW1 ([facility]) 0.0 0.0-3.0 EOS % eCW1 ([facility]) 5.1 1.5-8.5 NEUTROPHILS # eCW1 ([facility]) 0.8 0.0-1.0 BASO % eCW1 ([facility]) 0.9 0.0-0.8 MONO # eCW1 ([facility]) 1.9 1.5-5.0 LYMPH # eCW1 ([facility]) 0.0 0.0-0.5 EOS # eCW1 ([facility]) 0.1 0.0-0.2 BASO # eCW1 ([facility]) ID Date Data Source H PYLORI SERUM QUANT IgG ARON 08/01/2019 12:00:00 AM EDT eCW1 ([facility]) Name Value Range Interpretation Code Description Data Inga rce(s) Supporting Document(s) 0.28 0.00-0.79 H PYLORI SERUM QUANT IgG ARON eCW1 ([facility]) ID Date Data Source H PYLORI QUALITATIVE IGG 07/10/2019 12:00:00 AM EDT eCW1 ([facility]) Name Value Range Interpretation Code Description Data Inga rce(s) Supporting Document(s) NEGATIVE NEGATIVE H PYLORI QUALITATIVE IgG eCW1 ([facility]) ID Date Data Source DDIMER QUANT 06/24/2019 12:00:00 AM EDT eCW1 ([facility]) Name Value Range Interpretation Code Description Data Inga rce(s) Supporting Document(s) < 270 <500 D-DIMER QUANT eCW1 ([facility]) ID Date Data Source CPK CREATINE PHOSPHOKINASE 06/24/2019 12:00:00 AM EDT eCW1 ( [facility]) Name Value Range Interpretation Code Description Data Inga rce(s) Supporting Document(s) 13 79-192 CPK CREATINE PHOSPHOKINASE eCW 1 ([facility]) ID Date Data Source Urinalysis, no micro 06/24/2019 12:00:00 AM EDT eCW1 ([facility]) Name Value Range Interpretation Code Description Data Inga rce(s) Supporting Document(s) 1.020 1.002 - 1.035 Spec gravity eCW1 ([facility]) 5 5.0 - 9.0 pH eCW1 ([facility]) neg Negative - Leukocyte eCW1 ([facility]) neg Negative - Nitrate eCW1 ([facility]) neg Negative - mg/dl Protein eCW1 ([facility]) neg Negative - mg/dl Glucose eCW1 ([facility]) neg Negative - mg/dl Ketones eCW1 ([facility]) neg Negative - Bilirubin eCW1 ([facility]) neg Normal - mg/dl Urobili eCW1 ([facility]) neg Negative - Blood eCW1 ([facility]) Yes Internal QC Acceptable (Y/N) e CW1 ([facility]) Procedure Social History Code Duration Value Status Description Data Source(s ) Smoking 04/21/2020 12:00:00 AM EST Former Smoker completed Former Smoker eCW1 ([facility]) Smoking 04/21/2020 12:00:00 AM EST Former Smoker completed Former Smoker eCW1 ([facility]) Smoking 03/10/2020 12:00:00 AM EST Former Smoker completed Former Smoker eCW1 ([facility]) Smoking 03/10/2020 12:00:00 AM EST Former Smoker completed Former Smoker eCW1 ([facility]) Smoking 08/29/2019 12:00:00 AM EDT Former Smoker completed Former Smoker eCW1 ([facility]) Smoking 08/29/2019 12:00:00 AM EDT Former Smoker completed Former Smoker eCW1 ([facility]) Smoking 08/29/2019 12:00:00 AM EDT Former Smoker completed Former Smoker eCW1 ([facility]) Smoking 08/29/2019 12:00:00 AM EDT Former Smoker completed Former Smoker eCW1 ([facility]) Smoking 08/29/2019 12:00:00 AM EDT Former Smoker completed Former Smoker eCW1 ([facility]) Smoking 08/29/2019 12:00:00 AM EDT Former Smoker completed Former Smoker eCW1 ([facility]) Smoking 08/29/2019 12:00:00 AM EDT Former Smoker completed Former Smoker eCW1 ([facility]) Vital Signs ID Date Data Source UNK Name Value Range Interpretation Code Description Data Source(s) Diastolic blood pressure 78 mm[Hg] 78 mm[Hg] eCW1 ([facility]) Systolic blood pressure 120 mm[Hg] 120 mm[Hg] e CW1 ([facility]) Body temperature 96.5 [degF] 96.5 [degF] eCW1 ( [facility]) Respiratory rate 18 /min 18 /min eCW1 ([facility]) Heart rate 99 /min 99 /min eCW1 ([facility]) Body mass index (BMI) [Ratio] 33.94 kg/m2 33.94 kg/m2 eCW1 ([facility]) Body height 65 [in_i] 65 [in_i] eCW1 ([facility]) Body weight 204 [lb_av] 204 [lb_av] eCW1 ([facility]) Diastolic blood pressure 78 mm[Hg] 78 mm[Hg] eCW1 ([facility]) Systolic blood pressure 122 mm[Hg] 122 mm[Hg] e CW1 ([facility]) Body temperature 96.5 [degF] 96.5 [degF] eCW1 ( [facility]) Respiratory rate 18 /min 18 /min eCW1 ([facility]) Heart rate 111 /min 111 /min eCW1 ([facility]) Body mass index (BMI) [Ratio] 33.61 kg/m2 33.61 kg/m2 W1 ([facility]) Body height 65 [in_i] 65 [in_i] eCW1 ([facility]) Body weight 202 [lb_av] 202 [lb_av] eCW1 ([facility]) Body surface area Derived from formula 1.97 m2 1.97 m2 MEDDEB ([facility]) Body weight 90.266 kg 90.[address] [facility] ([facility]) [place] body weight 125 [lb_av] 125 [lb_av] MEDEN T ([facility]) Body mass index (BMI) [Ratio] 33.1 kg/m2 33.1 k g/m2 MEDENT ([facility]) Body weight 199.00 [lb_av] 199.00 [lb_av] MEDEN T ([facility]) Body height 65 [in_i] 65 [in_i] MEDENT ([facility]) 5'5" Diastolic blood pressure 90 mm[Hg] 90 mm[Hg] [facility] ([facility]) Systolic blood pressure 140 mm[Hg] 140 mm[facility]Hg] [facility] Body mass index (BMI) [Ratio] 31.6 kg/m2 31.6 k g/m2 [facility] ([facility], [facility]) Body height 65 [in_i] 65 [in_i] [facility] ([facility], [facility]) 5'5" Body weight 190.00 [lb_av] 190.00 [lb_av] MEDEN T ([facility], [facility]) Body temperature 97.8 [degF] 97.8 [degF] [facility] ([facility], [facility]) Oxygen saturation in Arterial blood by Pulse oximetry 98 % 98 % [facility] ([facility], [facility]) Respiratory rate 17 /min 17 /min [facility] ( [facility], [facility]) Heart rate 104 /min 104 /min [facility] ([facility], [facility]) Diastolic blood pressure 81 mm[Hg] 81 mm[Hg] [facility] ([facility], [facility]) Systolic blood pressure 118 mm[Hg] 118 mm[Hg] M EDENT ([facility], [facility]) Diastolic blood pressure 72 mm[Hg] 72 mm[Hg] eCW1 ([facility]) Systolic blood pressure 120 mm[Hg] 120 mm[Hg] e CW1 ([facility]) Body temperature 98.0 [degF] 98.0 [degF] eCW1 ( [facility]) Respiratory rate 17 /min 17 /min eCW1 ([facility]) Heart rate 88 /min 88 /min eCW1 ([facility]) Body mass index (BMI) [Ratio] 31.45 kg/m2 31.45 kg/m2 eCW1 ([facility]) Body height 65 [in_i] 65 [in_i] eCW1 ([facility]) Body weight 189 [lb_av] 189 [lb_av] eCW1 ([facility]) Body surface area Derived from formula 1.94 m2 1.[address] [facility] ([facility]) Body weight 86.638 kg 86.[address] [facility] ([facility]) [place] body weight 125 [lb_av] 125 [lb_av] MEDEN T ([facility]) Body mass index (BMI) [Ratio] 31.8 kg/m2 31.8 k g/m2 [facility] ([facility]) Body weight 191.00 [lb_av] 191.00 [lb_av] MEDEN T ([facility]) Body height 65 [in_i] 65 [in_i] [facility] ([facility]) 5'5" Diastolic blood pressure 86 mm[Hg] 86 mm[Hg] [facility] ([facility]) Systolic blood pressure 120 mm[Hg] 120 mm[Hg] M EDENT ([facility]) Diastolic blood pressure 78 mm[Hg] 78 mm[Hg] eCW1 ([facility]) Systolic blood pressure 118 mm[Hg] 118 mm[Hg] e CW1 ([facility]) Body temperature 97.3 [degF] 97.3 [degF] eCW1 ( [facility]) Respiratory rate 17 /min 17 /min eCW1 ([facility]) Heart rate 84 /min 84 /min eCW1 ([facility]) Body mass index (BMI) [Ratio] 31.81 kg/m2 31.81 kg/m2 W1 ([facility]) Body height 65 [in_us] 65 [in_us] eCW1 ([facility]) Body weight Measured 191.2 [lb_av] 191.2 [lb_av ] eCW1 ([facility]) Diastolic blood pressure 78 mm[Hg] 78 mm[Hg] eCW1 ([facility]) Systolic blood pressure 124 mm[Hg] 124 mm[Hg] e CW1 ([facility]) Body temperature 97.5 [degF] 97.5 [degF] eCW1 ( [facility]) Respiratory rate 17 /min 17 /min eCW1 ([facility]) Heart rate 96 /min 96 /min eCW1 ([facility]) Body mass index (BMI) [Ratio] 30.98 kg/m2 30.98 kg/m2 eCW1 ([facility]) Body height 65 [in_us] 65 [in_us] eCW1 ([facility]) Body weight Measured 186.2 [lb_av] 186.2 [lb_av ] eCW1 ([facility]) Diastolic blood pressure 74 mm[Hg] 74 mm[Hg] eCW1 ([facility]) Systolic blood pressure 118 mm[Hg] 118 mm[Hg] e CW1 ([facility]) Body temperature 97.7 [degF] 97.7 [degF] eCW1 ( [facility]) Respiratory rate 17 /min 17 /min eCW1 ([facility]) Heart rate 116 /min 116 /min eCW1 ([facility]) Body mass index (BMI) [Ratio] 29.98 kg/m2 29.98 kg/m2 eCW1 ([facility]) Body height 65 [in_us] 65 [in_us] eCW1 ([facility]) Body weight Measured 180.2 [lb_av] 180.2 [lb_av ] eCW1 ([facility]) Body mass index (BMI) [Ratio] 29.1 kg/m2 29.1 k g/m2 MEDENT ([facility], [facility]) Body height 65 [in_i] 65 [in_i] MED[facility] ([facility], [facility]) 5'5" Body weight 175.00 [lb_av] 175.00 [lb_av] MEDEN T ([facility]) Body temperature 98.9 [degF] 98.9 [degF] MEDENT ([facility]) Oxygen saturation in Arterial blood by Pulse oximetry 98 % 98 % [facility] ([facility]) Respiratory rate 12 /min 12 /min [facility] ( [facility], [facility]) Heart rate 111 /min 111 /min [facility] ([facility], [facility]) Diastolic blood pressure 99 mm[Hg] 99 mm[Hg] MED[facility] ([facility]) Systolic blood pressure 138 mm[Hg] 138 mm[Hg] M EDENT ([facility]) Diastolic blood pressure 68 mm[Hg] 68 mm[Hg] eCW1 ([facility]) Systolic blood pressure 110 mm[Hg] 110 mm[Hg] e CW1 ([facility]) Body temperature 98.2 [degF] 98.2 [degF] eCW1 ( [facility]) Respiratory rate 17 /min 17 /min eCW1 ([facility]) Heart rate 114 /min 114 /min eCW1 ([facility]) Body mass index (BMI) [Ratio] 28.72 kg/m2 28.72 kg/m2 eCW1 ([facility]) Body height 65 [in_us] 65 [in_us] eCW1 ([facility]) Body weight Measured 172.6 [lb_av] 172.6 [lb_av ] eCW1 ([facility]) Patient Treatment Plan of Care Planned Activity Planned Date Details Description Data Source (s) 24 HR venlafaxine 37.5 MG Extended Release Oral Capsul e [Effexor] 10/15/2019 12:00:00 AM EDT eCW1 ([facility]) 24 HR venlafaxine 37.5 MG Extended Release Oral Capsul e [Effexor] 10/15/2019 12:00:00 AM EDT eCW1 ([facility]) 24 HR venlafaxine 37.5 MG Extended Release Oral Capsul e [Effexor] 10/15/2019 12:00:00 AM EDT eCW1 ([facility]) 24 HR venlafaxine 37.5 MG Extended Release Oral Capsul e [Effexor] 10/15/2019 12:00:00 AM EDT eCW1 ([facility]) 24 HR venlafaxine 37.5 MG Extended Release Oral Capsul e [Effexor] 10/15/2019 12:00:00 AM EDT eCW1 ([facility]) 24 HR venlafaxine 37.5 MG Extended Release Oral Capsul e [Effexor] 10/15/2019 12:00:00 AM EDT eCW1 ([facility]) 24 HR venlafaxine 37.5 MG Extended Release Oral Capsul e [Effexor] 10/15/2019 12:00:00 AM EDT eCW1 ([facility]) Sulfasalazine 500 MG Oral Tablet 08/01/2019 12:00:00 AM EDT eCW1 ([facility]) Sulfasalazine 500 MG Oral Tablet 08/01/2019 12:00:00 AM EDT eCW1 ([facility]) celecoxib 200 MG Oral Capsule [Celebrex] 06/27/2019 12:00:00 AM EDT eCW1 ([facility]) celecoxib 200 MG Oral Capsule [Celebrex] 06/27/2019 12:00:00 AM EDT eCW1 ([facility]) gabapentin 100 MG Oral Capsule 06/24/2019 12:00:00 AM EDT eCW1 ([facility]) Methocarbamol 500 MG Oral Tablet 06/24/2019 12:00:00 AM EDT eCW1 ([facility]) gabapentin 100 MG Oral Capsule 06/24/2019 12:00:00 AM EDT eCW1 ([facility]) Methocarbamol 500 MG Oral Tablet 06/24/2019 12:00:00 AM EDT eCW1 ([facility]) Menthol 100 MG/ML / methyl salicylate 30 0 MG/ML Topical Cream [Icy Hot with Methyl Salicylate] 06/24/2019 12:00:00 AM EDT eC W1 ([facility]) gabapentin 100 MG Oral Capsule 06/24/2019 12:00:00 AM EDT eCW1 ([facility]) tizanidine 2 MG Oral Tablet 04/10/2019 12:00:00 AM EST eCW1 ([facility]) Naproxen 250 MG Oral Tablet 04/10/2019 12:00:00 AM EST eCW1 ([facility])
[2020-05-24] MEDS ORDERED: ESOM40CA35 PO (21:22)
[2020-05-24] MEDS ORDERED: SULF1TAB30 PO (21:22)
[2020-05-24] MEDS ORDERED: LISI10TA22 PO (21:22)
[2020-05-24 21:33] LABS: BASO % 0.5 % (0.0-1.0); EOS # 0.1 10^3/uL (0.0-0.5); EOS % 1.3 % (0.0-3.0); HEMATOCRIT 37.7 % (36.0-47.0); HEMOGLOBIN 12.1 g/dl (12.0-15.5); LYMPH # 2.1 10^3/uL (1.5-5.0); LYMPH % 24.2 % (24.0-44.0); MEAN CORPUSCULAR HEMOGLOBIN 29.3 pg (27.0-33.0); MEAN CORPUSCULAR HGB CONC 32.1 g/dl (32.0-36.5); MEAN CORPUSCULAR VOLUME 91.3 fl (80.0-96.0); MONO # 0.8 10^3/uL (0.0-0.8); MONO % 8.9 % (2.0-8.0); NEUTROPHILS # 5.5 10^3/uL (1.5-8.5); NEUTROPHILS % 64.7 % (36.0-66.0); PLATELET COUNT, AUTOMATED 369 10^3/uL (150-450); RED BLOOD COUNT 4.13 10^6/uL (4.00-5.40); WHITE BLOOD COUNT 8.5 10^3/uL (4.0-10.0)
[2020-05-24 22:03] LABS: ALBUMIN 3.5 GM/DL (3.2-5.2); ALT/SGPT 29 U/L (12-78); BILIRUBIN,DIRECT 0.1 MG/DL (0.0-0.2); BILIRUBIN,TOTAL 0.4 MG/DL (0.2-1.0); BLOOD UREA NITROGEN 10 MG/DL (7-18); CALCIUM LEVEL 8.7 MG/DL (8.5-10.1); CARBON DIOXIDE LEVEL 27 MEQ/L (21-32); CHLORIDE LEVEL 105 MEQ/L (98-107); CREATININE FOR GFR 0.68 MG/DL (0.55-1.30); GLOMERULAR FILTRATION RATE > 60.0 (>60); GLUCOSE, FASTING 90 MG/DL (70-100); LIPASE 193 U/L (73-393); POTASSIUM SERUM 3.7 MEQ/L (3.5-5.1); SODIUM LEVEL 139 MEQ/L (136-145); TOTAL PROTEIN 7.4 GM/DL (6.4-8.2)
--- OUTSIDE RECORDS SUMMARY | 2020-05-24 22:13 | CCD ---
Author Author [facility] Organization [facility] Address Unknown Phone Unavailable Care Team Providers Care Corduroy Brusher Operator Name Role Phone RING, K CROW PA [...] Unavailable REINDL, CHUCK BULLARD Unavailable Unavailable REINDL, CHUKC BULLARD Unavailable Unavailable REINDL, CHUCK BULLARD Unavailable [...] is protected by Article 27-F of the [facility] Public Health law. If you continue you may have access to information: Regarding HIV / AIDS; Provided by facilities licensed or operated by the [facility] Office of Mental Health; or Provided by the [facility] Office for People With Developmental Disabilities. If such information is present, then the following [facility] mandated warning applies: This information has been [...] law may result in a fine or long-term sentence or both. A general authorization for the release of medical or other information is NOT sufficient authorization for further disc losure. Allergies and Adverse Reactions Type Description Substance Reaction Status Data Source(s ) Humira Humira Humira palpitations Active eCW1 ([facility]) Humira Humira Humira palpitations Active eCW1 ([facility]) Drug Allergy NKDA NKDA MEDENT ([facility]) Family History Family Member Name Family Member Gender Family Member Status Date o f Status Description Data Source(s) Unknown Unknown Problem MEDENT ([facility]) GF and bone Unknown Male Problem MEDENT ([facility]) () - at age 58 Unknown Male Problem MEDENT ([facility] ) Unknown Male Problem MEDENT ([facility]) Unknown Male Problem MEDENT (Keshav Nguyen MD ) Unknown Unknown Problem MEDENT ([facility]) Unknown Unknown Problem MEDENT ([facility]) Unknown Unknown Problem MEDENT ([facility]) pgf Encounters Encounter Providers Location Date Indications Data Source(s ) [place] [address] [facility] [address] 04/21/2020 12:00:00 AM EST [facility] Unknown [address] [facility] [place] [address] 04/08/2020 12:00:00 AM EST [facility]CW1 [facility]) Unknown [address] [facility] [place] [address] 03/31/2020 12:00:00 AM EST eCW1 ([facility]) [place] [address] [facility] [place] [address] 03/10/2020 12:00:00 AM EST eCW1 (Critical access hospital) Outpatient Attender: CHUCK Syed/Sachi/Doug/Karl vazquez 02/24/2020 12:15:00 PM EST MEDENT ([facility] Unknown [address] [facility] [place] [address] 02/02/2020 12:00:00 AM EST eCW1 ([facility]) [place] [address] [facility] [address] 01/27/2020 12:00:00 AM EDT eCW1 ([facility]) Outpatient Attender: GUSTAVO silverio 12/05/2019 03:40:00 PM EDT MED[facility] [address] [facility] [address] 11/10/2019 12:00:00 AM EDT eCW1 ([facility]) Unknown [address] [facility] [address] 10/16/2019 12:00:00 AM EDT eCW1 ([facility]) [place] [address] [facility] [address] 10/15/2019 12:00:00 AM EDT eCW1 ([facility]) Unknown [address] [facility] [address] 10/08/2019 12:00:00 AM EDT eCW1 ([facility]) Unknown [address] [facility] [address] 09/03/2019 12:00:00 AM EDT eCW1 ([facility]) [place] [address] [facility] [address] 08/29/2019 12:00:00 AM EDT eCW1 ([facility]) [facility] [address] [facility] [address] 08/29/2019 12:00:00 AM EDT eCW1 ([facility]) [facility] [address] [facility] [place] [address] 08/18/2019 12:00:00 AM EDT eCW1 ([facility]) Outpatient Attender: CHUCK Syed/Sachi/Doug/Karl vazquez 08/13/2019 02:30:00 PM EDT MEDENT ([facility]) [facility] [address] [facility] [address] 08/04/2019 12:00:00 AM EDT eCW1 ([facility]) [facility] [address] [facility] [address] 08/01/2019 12:00:00 AM EDT eCW1 ([facility]) [facility] [address] [place] [address], [place] [address] 08/01/2019 12:00:00 AM EDT eCW1 ([facility]) [facility] [address] [place] [address], [place] [address] 07/15/2019 12:00:00 AM EDT eCW1 ([facility]) [facility] [address] [place] [address], [place] [address] 07/10/2019 12:00:00 AM EDT eCW1 ([facility]) [facility] [address] [place] [address], [place] [address] 07/04/2019 12:00:00 AM EDT eCW1 ([facility]) [facility] [address] [place] [address], [place] [address] 07/03/2019 12:00:00 AM EDT eCW1 ([facility]) [facility] [address] [place] [address], [place] [address] 07/01/2019 12:00:00 AM EDT eCW1 ([facility]) [address] [address] 07/01/2019 12:00:00 AM EDT eCW1 ([facility]) [address] [address] 06/27/2019 12:00:00 AM EDT eCW1 ([facility]) [address] [address] 06/27/2019 12:00:00 AM EDT eCW1 (Critical access hospital) [address] [address] 06/25/2019 12:00:00 AM EDT eCW1 (Critical access hospital) [address] [address] 06/24/2019 12:00:00 AM EDT eCW1 (Critical access hospital) [address] [address] 06/24/2019 12:00:00 AM EDT eCW1 (Critical access hospital) [address] [address] 06/19/2019 12:00:00 AM EDT eCW1 (Critical access hospital) Outpatient Attender: CROW Mccall 06/01/2019 09:00:00 AM EST MEDENT ([facility]) [address] [address] 04/10/2019 12:00:00 AM EST eCW1 (Critical access hospital) Immunizations Vaccine Date Status Description Data Source(s) Depo-Medrol 80mg (Methylprednisolone Acetate) 07/04/2019 11: 38:00 AM EDT completed eCW1 (Critical access hospital) Depo-Medrol 80mg (Methylprednisolone Acetate) 07/04/2019 11: 38:00 AM EDT completed eCW1 (Critical access hospital) Depo-Medrol 80mg (Methylprednisolone Acetate) 07/04/2019 11: 38:00 AM EDT completed eCW1 (Critical access hospital) Depo-Medrol 80mg (Methylprednisolone Acetate) 07/04/2019 11: 38:00 AM EDT completed eCW1 (Critical access hospital) Depo-Medrol 80mg (Methylprednisolone Acetate) 07/04/2019 11: 38:00 AM EDT completed eCW1 (Critical access hospital) Depo-Medrol 80mg (Methylprednisolone Acetate) 07/04/2019 11: 38:00 AM EDT completed eCW1 (Critical access hospital) Depo-Medrol 80mg (Methylprednisolone Acetate) 07/04/2019 11: 38:00 AM EDT completed eCW1 (Critical access hospital) Depo-Medrol 80mg (Methylprednisolone Acetate) 07/04/2019 11: 38:00 AM EDT completed eCW1 (Critical access hospital) Depo-Medrol 80mg (Methylprednisolone Acetate) 07/04/2019 11: 38:00 AM EDT completed eCW1 (Critical access hospital) Medications Medication Brand Name Start Date Product [...] Prednisone 12/05/2019 12:00:00 AM EDT active MEDENT ([facility]) Ondansetron 4 MG Disintegrating Oral Tablet Ondansetron 12/05/2019 12:00:00 AM EDT active MEDENT ([facility]) 20 mg 12/05/2019 12:00:00 AM EDT tablet 10 TAKE ONE TABLET BY MOUTH TWICE A DAY FOR 5 DAYS TAKE ONE TABLET BY MOUTH TWICE A DAY FOR 5 DAYS SOLD: 2019 [facility] 10 mg 11/10/2019 12:00:00 AM EDT [...] active Effexor XR 37.5 MG e CW1 ([facility]) 24 HR venlafaxine 37.5 MG Extended Relea se Oral Capsule [Effexor] Effexor XR 37.5 MG Effexor XR 37.5 MG 10/15/2019 12:00:00 AM EDT 1.0 {cap sule_with_food} active Effexor XR 37.5 MG e CW1 ([facility]) 24 HR venlafaxine 37.5 MG Extended Relea se Oral Capsule [Effexor] Effexor XR 37.5 MG Effexor XR 37.5 MG 10/15/2019 12:00:00 AM EDT 1.0 {cap sule_with_food} active Effexor XR 37.5 MG e CW1 ([facility]) 24 HR venlafaxine 37.5 MG Extended Relea se Oral Capsule [Effexor] Effexor XR 37.5 MG Effexor XR 37.5 MG 10/15/2019 12:00:00 AM EDT 1.0 {cap sule_with_food} active Effexor XR 37.5 MG e CW1 ([facility]) 24 HR venlafaxine 37.5 MG Extended Relea se Oral Capsule [Effexor] Effexor XR 37.5 MG Effexor XR 37.5 MG 10/15/2019 12:00:00 AM EDT 1.0 {cap sule_with_food} active Effexor XR 37.5 MG e CW1 ([facility]) 24 HR venlafaxine 37.5 MG Extended Relea se Oral Capsule [Effexor] Effexor XR 37.5 MG Effexor XR 37.5 MG 10/15/2019 12:00:00 AM EDT 1.0 {cap sule_with_food} active Effexor XR 37.5 MG e CW1 ([facility]) 24 HR venlafaxine 37.5 MG Extended Relea se Oral Capsule [Effexor] Effexor XR 37.5 MG Effexor XR 37.5 MG 10/15/2019 12:00:00 AM EDT 1.0 {cap sule_with_food} active Effexor XR 37.5 MG e CW1 ([facility]) 24 HR venlafaxine 37.5 MG Extended Relea se Oral Capsule [Effexor] Effexor XR 37.5 MG Effexor XR 37.5 MG 10/15/2019 12:00:00 AM EDT 1.0 {cap sule_with_food} active Effexor XR 37.5 MG e CW1 ([facility]) 24 HR venlafaxine 37.5 MG Extended Relea se Oral Capsule [Effexor] Effexor XR 37.5 MG Effexor XR 37.5 MG 10/15/2019 12:00:00 AM EDT 1.0 {cap sule_with_food} active Effexor XR 37.5 MG e CW1 ([facility]) 500 mg 08/21/2019 12:00:00 AM EDT tablet [...] 12:00:00 AM EDT active 2 tablet eCW1 ([facility]) 100 mg 08/01/2019 12:00:00 AM EDT capsule 90 TAKE THREE CAPSULES BY MOUTH THREE TIMES A DAY TAKE THREE CAPSULES BY MOUTH THREE TIMES A DAY SOLD: 08/02/2019 [facility] Sulfasalazine 500 MG Oral Tablet Sulfasalazine 500 MG 2019 12:00:00 AM EDT active 1 tablet eCW1 ([facility]) 500 mg 08/01/2019 12:00:00 AM EDT [...] H FOOD FOR 7 DAYS SOLD: 07/04/2019 [facility] 100 mg 07/01/2019 12:00:00 AM EDT capsule 180 TAKE TWO CAPSULES BY MOUTH THREE TIMES A DAY TAKE TWO CAPSULES BY MOUTH THREE TIMES A DAY SOLD: 0 [facility] celecoxib 200 MG Oral Capsule [Celebrex] Celebrex 200 MG Shi ebrex 200 MG 06/27/2019 12:00:00 AM EDT active 1 capsule with food eCW1 ([facility]) celecoxib 200 MG Oral Capsule [Celebrex] Celebrex 200 MG Shi ebrex 200 MG 06/27/2019 12:00:00 AM EDT active 1 capsule with food eCW1 ([facility]) 200 mg 06/27/2019 12:00:00 AM EDT capsule 14 TAKE ONE CAPSULE BY MOUTH TWICE A DAY WITH FOOD TAKE ONE CAPSULE BY MOUTH TWICE A DAY WITH FOOD SOLD: 06/27/2019 [facility] Methocarbamol 500 MG Oral Tablet Methocarbamol 500 MG 2019 12:00:00 AM EDT active 1 tablets eCW1 (Critical [facility] hospital) Methocarbamol 500 MG Oral Tablet Methocarbamol 500 MG 2019 12:00:00 AM EDT active 1 tablets eCW1 (Critical access hospital) Menthol 100 MG/ML / methyl salicylate 30 0 MG/ML Topical Cream [Icy Hot with Methyl Salicylate] I[place] Extra Strength 7.6-29 % [facility] [place] Extra Strength 7.6-29 % 06/24/2019 12:00:00 AM EDT active [place] Extra Strength 7.6-29 % eCW1 ([facility]) Menthol 100 MG/ML / methyl salicylate 30 0 MG/ML Topical Cream [place] Extra Strength 7.6-29 % [facility] [place] Extra Strength 7.6-29 % 06/24/2019 12:00: 00 AM EDT active [place] Extr a Strength 7.6-29 % eCW1 ([facility]) Menthol 100 MG/ML / methyl salicylate 30 0 MG/ML Topical Cream [Icy Hot with Methyl Salicylate] I[place] Extra Strength 7.6-29 % [facility] [place] Extra Strength 7.6-29 % 06/24/2019 12:00:00 AM EDT activ e as directed eCW1 ([facility]) gabapentin 100 MG Oral Capsule Gabapentin 100 MG Gabapentin 100 MG 06/24/2019 12:00:00 AM EDT active 1 capsul e eCW1 ([facility]) Menthol 100 MG/ML / methyl salicylate 30 0 MG/ML Topical Cream [Icy Hot with Methyl Salicylate] [place] Extra Strength 7.6-29 % [facility] [place] Extra Strength 7.6-29 % 06/24/2019 12:00:00 AM EDT activ e as directed eCW1 ([facility]) gabapentin 100 MG Oral Capsule Gabapentin 100 MG Gabapentin 100 MG 06/24/2019 12:00:00 AM EDT active 2 capsul e eCW1 ([facility]) Menthol 100 MG/ML / methyl salicylate 30 0 MG/ML Topical Cream [place] Extra Strength 7.6-29 % [facility] [place] Extra Strength 7.6-29 % 06/24/2019 12:00: 00 AM EDT active [place] Hot [place] Extr a Strength 7.6-29 % eCW1 ([facility]) 100 mg 06/24/2019 12:00:00 AM EDT capsule [...] [Icy Hot with Methyl Salicylate] [place] Extra Strength 7.6-29 % [facility] [place] Extra Strength 7.6-29 % 06/24/2019 12:00:00 AM EDT active [place] Extra Strength 7.6-29 % eCW1 ([facility]) Menthol 100 MG/ML / methyl salicylate 30 0 MG/ML Topical Cream [Icy Hot with Methyl Salicylate] [place] Extra Strength 7.6-29 % [facility] [place] Extra Strength 7.6-29 % 06/24/2019 12:00:00 AM EDT active I[place] Extra Strength 7.6-29 % eCW1 ([facility]) gabapentin 100 MG Oral Capsule Gabapentin 100 MG Gabapentin 100 MG 06/24/2019 12:00:00 AM EDT active 2 capsul e eCW1 ([facility]) Menthol 100 MG/ML / methyl salicylate 30 0 MG/ML Topical Cream [Icy Hot with Methyl Salicylate] [place] Extra Strength 7.6-29 % [facility] [place] Extra Strength 7.6-29 % 06/24/2019 12:00:00 AM EDT active [place] Extra Strength 7.6-29 % eCW1 ([facility]) Menthol 100 MG/ML / methyl salicylate 30 0 MG/ML Topical Cream [Icy Hot with Methyl Salicylate] [place] Extra Strength 7.6-29 % [facility] [place] Extra Strength 7.6-29 % 06/24/2019 12:00:00 AM EDT activ e as directed eCW1 ([facility]) Menthol 100 MG/ML / methyl salicylate 30 0 MG/ML Topical Cream [Icy Hot with Methyl Salicylate] [place] [place] Extra Strength 7.6-29 % [facility] [place] Extra Strength 7.6-29 % 06/24/2019 12:00:00 AM EDT active [place] Extra Strength 7.6-29 % eCW1 ([facility]) tizanidine 4 MG Oral Capsule Tizanidine HCL 06/01/2019 12:00:00 AM EST ORAL active MEDENT ([facility]) Methylprednisolone Methylprednisolone 06/01/2019 12:00:00 AM EST active [facility]) 150 mg 04/10/2019 12:00:00 AM EST capsule,extended releas e 24hr 90 TAKE ONE CAPSULE BY MOUTH EVERY DAY ONCE A DAY ALONG WITH 37.5MG CAPSULE TAKE ONE CAPSULE BY MOUTH EVERY DAY ONCE A DAY ALONG WITH 37.5MG CAPSULE SOLD: 06/29/2019 [facility] 150 mg 04/10/2019 12:00:00 AM EST capsule,extended releas e 24hr 30 TAKE ONE CAPSULE BY MOUTH EVERY DAY ONCE A DAY ALONG WITH 37.5MG CAPSULE TAKE ONE CAPSULE BY MOUTH EVERY DAY ONCE A DAY ALONG WITH 37.5MG CAPSULE SOLD: 04/11/2019 [facility] 150 mg 04/10/2019 12:00:00 AM EST [...] WITH FOOD ONCE A DAY SOLD: 06/29/2019 [facility] Naproxen 250 MG Oral Tablet Naproxen 250 MG 04/10/2019 12:00:00 AM EST active 1 tablet with food or milk e CW1 ([facility]) 2 mg 04/10/2019 12:00:00 AM EST tablet [...] EST active 1 tablet as needed eCW1 ([facility]) 37.5 mg 04/10/2019 12:00:00 AM EST capsule,extended releas e 24hr 30 TAKE ONE CAPSULE BY MOUTH EVERY DAY WITH FOOD ONCE A DAY TAKE ONE CAPSULE BY MOUTH EVERY DAY WITH FOOD ONCE A DAY SOLD: 04/11/2019 [facility] Insurance Providers Payer name Policy type / Coverage type Policy ID Covered republican ID Covered republican's relationship to miranda Policy Miranda Plan Information [place] P[place] 302/307 [id number] SP [id number] [employer] BC-BS PPO 306 [id number] SP [id number] [place] [place] PPO 302/307 [id number] SP [id number] [employer]-BS PPO 306 [id number] SP [id number] [place] 306/806 [id number] SP [id number] [facility] [id number] SP [id number] [employer] BC-BS PPO 306 [id number] SP [id number] [employer] [place] 306/806 [id number] SP [id number] [place] [place] 306/806 [id number] SP [id number] [employer] BC-BS PPO 306 [id number] SP [id number] [facility] [id number] SP [id number] [facility] [id number] SP [id number] [facility] COMMUNITY PLAN [facility] [id number] SP [id number] SELF PAY ONLY [id number] SP [id number] ANSI-Commercial [id number] ANSI-Commercial [id number] ANSI-Medicaid [id number] [facility] Maintenance Organization ([facility] [id number] Self [id number] [employer] BCBS Medigap Part B [id number] Family Dependent [id number] [facility] COMMUNITY PLAN [facility] [id number] SP [id number] [facility] COMMUNITY PLAN [facility] [id number] SP [id number] [place] PPO 302/307 [id number] [facility] PLAN [facility] [id number] SP [id number] [facility] [id number] SP [id number] [place]BS [place] PPO 302/307 [id number] ANSI-Medicaid [id number] ANSI-Commercial [id number] ANSI-Commercial [id number] ANSI-Commercial [id number] ANSI-Commercial [id number] ANSI-Medicaid [id number] [facility] Maintenance Organization (HMO) [id number] Self [id number] [facility] Health Maintenance Organization (HMO) [id number] Self [id number] [employer] BCBS Health Maintenance Organization (HMO) [id number] Family Dependent [id number] [employer] BCBS B [id number] S [id number] [id number] [employer] BCBS Health Maintenance Organization (HMO) [id number] Family Dependent [id number] Ghi FHP-(DO Not Use) Medigap Part B [id number] Self [id number] Medicaid [place] Medigap Part B [id number] Self [id number] MVP (pr) Commercial [id number] Self [id number] [place] Commercial [id number] Self [id number] BCBS [place] PPO 302/307 [id number] BCBS/Blue Card Commercial [id number] Family Dependent [id number] BC/BS PPO/EPO (28) [id number] [employer] HE[facility] C[facility] [id number] SP [id number] VALUE OPTIONS (MVP) [id number] SP [id number] [employer] Blue Cross Commercial Family Dependent [employer] BCBS [id number] Spo PYN [id number] [facility] [id number] MVP (HMO/PPO) HEALTH CARE [id number] 0 [id number] MVP (HMO/PPO) HEALTH CARE [id number] 1 [id number] MVP Commercial Self MVP HEALTH CARE O [id number] S [id number] [facility] PHY [id number] SP [id number] Problems, Conditions, and Diagnoses Code Display Name Description Problem Type Effective Dates Data Source(s) Z79.899 [id number] Long-term use of immunosuppressant medica tion Problem 07/01/2019 12:00:00 AM EDT eCW1 ([facility]) M46.47 1987450 Discitis of lumbosacral region Problem 07/01/2019 12:00:00 AM EDT eCW1 ([facility]) M46.44 [id number] Discitis thoracic region Problem 07/01/2019 12:00:00 AM EDT eCW1 ([facility]) Z79.899 907823695 Long-term use of immunosuppressant medica tion Problem 07/01/2019 12:00:00 AM EDT eCW1 ([facility]) M46.47 1283136 Discitis of lumbosacral region Problem 07/01/2019 12:00:00 AM EDT eCW1 ([facility]) M46.44 202283039 Discitis thoracic region Problem 07/01/2019 12:00:00 AM EDT eCW1 ([facility]) M54.31 [id number] Sciatica, right side Problem 12:00:00 AM EDT eCW1 ([facility]) M54.32 53312012 Sciatica, left side Problem 06/24/2019 12:00 :00 AM EDT eCW1 ([facility]) M54.31 [id number] Sciatica, right side Problem 12:00:00 AM EDT eCW1 ([facility]) M54.32 10197235 Sciatica, left side Problem 06/24/2019 12:00 :00 AM EDT eCW1 ([facility]) Z12.4 948072493 Cervical cancer screening Problem 04/10/2019 12:00:00 AM EST eCW1 ([facility]) Z12.39 892686822 Breast cancer screening Problem 04/10/2019 1 2:00:00 AM EST eCW1 ([facility]) Z13.220 240689809 Lipid screening Problem 04/10/2019 12:00:00 AM EST eCW1 ([facility]) K50.90 92791934 Crohn''s disease wit hout complication, unspecified gastrointestinal tract location Problem 04/10/2019 12:00:00 AM EST e CW1 ([facility]) Z12.4 649868686 Cervical cancer screening Problem 04/10/2019 12:00:00 AM EST eCW1 ([facility]) Z12.39 900069156 Breast cancer screening Problem 04/10/2019 1 2:00:00 AM EST eCW1 ([facility]) Z13.220 233047554 Lipid screening Problem 04/10/2019 12:00:00 AM EST eCW1 ([facility]) K50.90 [id number] Crohn''s disease wit hout complication, unspecified gastrointestinal tract location Problem 04/10/2019 12:00:00 AM EST e CW1 ([facility]) Surgeries/Procedures Procedure Description Date Indications Data Source(s) URINE-NO MICRO 06/24/2019 12:00:00 AM EDT eCW1 ([facility]) Results ID Date Data Source LIPID PANEL (CARDIAC RISK) 03/10/2020 12:00:00 AM EST eCW1 ( [facility]) Name Value Range Interpretation Code Description Data Inga rce(s) Supporting Document(s) Triglyceride [Mass/volume] in Serum or Plasma by calculation 201 <150 TRIGLYCERIDES LEVEL eCW1 ([facility]) Cholesterol in LDL [Mass/volume] in Serum or Plasma by calculation 61 <100 LDL CHOLESTEROL eCW1 ([facility]) Cholesterol [Moles/volume] in Serum or Plasma 165 <200 CHOLESTEROL LEVEL eCW1 ([facility]) Cholesterol in HDL [Moles/volume] in Serum or Plasma 64 >40 HDL CHOLESTEROL eCW1 ([facility]) 101 NON-HDL-C eCW1 (Counts include 234 beds at the [facility]) 2.578 <5 CHOLESTEROL RISK RATIO eCW1 (Critical access hospital) ID Date Data Source FREE T4 & TSH PANEL 03/10/2020 12:00:00 AM EST eCW1 ([facility]) Name Value Range Interpretation Code Description Data Inga rce(s) Supporting Document(s) 3.690 0.358-3.740 THYROID STIMULATING HORM ONE eCW1 ([facility]) 0.93 0.76-1.46 FREE T4 eCW1 (Counts include 234 beds at the [facility]) ID Date Data Source PTH INTACT 03/10/2020 12:00:00 AM EST eCW1 ([facility]) Name Value Range Interpretation Code Description Data Inga rce(s) Supporting Document(s) 29.8 18.5-88.0 eCW1 (Counts include 234 beds at the [facility]) ID Date Data Source VITAMIN D 25-HYDROXY 03/10/2020 12:00:00 AM EST eCW1 ([facility]) Name Value Range Interpretation Code Description Data Inga rce(s) Supporting Document(s) 16.9 30.0-100.0 TOTAL 25(OH) VITAMIN D eC W1 ([facility]) ID Date Data Source ERYTHROCYTE SEDIMENTATION RATE 03/10/2020 12:00:00 AM EST eC W1 ([facility]) Name Value Range Interpretation Code Description Data Inga rce(s) Supporting Document(s) 32 0-20 ERYTHROCYTE SEDIMENTATION RATE eCW1 ([facility]) ID Date Data Source C REACTIVE PROTEIN QUANTITATIV (At [facility]) 03/10/2020 12:00 :00 AM EST eCW1 ([facility]) Name Value Range Interpretation Code Description Data Inga rce(s) Supporting Document(s) 0.94 0.00-0.30 C REACTIVE PROTEIN QUANTI TATIV eCW1 ([facility]) ID Date Data Source Comprehensive Metabolic Profile (CMP) 03/10/2020 12:00:00 AM EST eCW1 ([facility]) Name Value Range Interpretation Code Description Data Inga rce(s) Supporting Document(s) 85 70-100 GLUCOSE, FASTING eCW1 ([facility]) 14 7-18 BLOOD UREA NITROGEN eCW1 ([facility]) 0.68 0.55-1.30 CREATININE FOR GFR eCW1 ([facility]) > 60.0 >60 GLOMERULAR FILTRATION RATE eCW 1 ([facility]) 136 136-145 SODIUM LEVEL eCW1 ([facility]) 103 98-107 CHLORIDE LEVEL eCW1 ([facility]) 5.2 3.5-5.1 POTASSIUM SERUM eCW1 ([facility]) 32 21-32 CARBON DIOXIDE LEVEL eCW1 ([facility]) 9.6 8.5-10.1 CALCIUM LEVEL eCW1 ([facility]) 22 7-37 AST/SGOT eCW1 (Counts include 234 beds at the [facility]) 80 45-117 ALKALINE PHOSPHATASE eCW1 ([facility]) 38 12-78 ALT/SGPT eCW1 (Counts include 234 beds at the [facility]) 7.9 6.4-8.2 TOTAL PROTEIN eCW1 ([facility]) 0.3 0.2-1.0 BILIRUBIN,TOTAL eCW1 ([facility]) 3.6 3.2-5.2 ALBUMIN eCW1 (Counts include 234 beds at the [facility]) 0.8 1.2-2.2 ALBUMIN/GLOBULIN RATIO eCW1 (Critical access hospital) ID Date Data Source CBC with Differential 03/10/2020 12:00:00 AM EST eCW1 ([facility]) Name Value Range Interpretation Code Description Data Inga rce(s) Supporting Document(s) 4.65 4.00-5.40 RED BLOOD COUNT eCW1 ([facility]) 8.0 4.0-10.0 WHITE BLOOD COUNT eCW1 ([facility]) 13.5 12.0-15.5 HEMOGLOBIN eCW1 ([facility]) 93.8 80.0-96.0 MEAN CORPUSCULAR VOLUME e CW1 ([facility]) 43.6 36.0-47.0 HEMATOCRIT eCW1 ([facility]) 29.0 27.0-33.0 MEAN CORPUSCULAR HEMOGLOB IN eCW1 ([facility]) 31.0 32.0-36.5 MEAN CORPUSCULAR HGB CONC eCW1 ([facility]) 23.7 24.0-44.0 LYMPH % eCW1 (Counts include 234 beds at the [facility]) 63.4 36.0-66.0 NEUTROPHILS % eCW1 ([facility]) 13.1 11.5-14.5 RED CELL DISTRIBUTION WID TH eCW1 ([facility]) 389 150-450 PLATELET COUNT, AUTOMATED eCW1 ([facility]) 11.7 0.0-5.0 MONO % eCW1 (Counts include 234 beds at the [facility]) 0.0 0.0-3.0 EOS % eCW1 (Counts include 234 beds at the [facility]) 5.1 1.5-8.5 NEUTROPHILS # eCW1 ([facility]) 0.8 0.0-1.0 BASO % eCW1 (Counts include 234 beds at the [facility]) 0.9 0.0-0.8 MONO # eCW1 (Counts include 234 beds at the [facility]) 1.9 1.5-5.0 LYMPH # eCW1 (Counts include 234 beds at the [facility]) 0.0 0.0-0.5 EOS # eCW1 (Counts include 234 beds at the [facility]) 0.1 0.0-0.2 BASO # eCW1 (Counts include 234 beds at the [facility]) ID Date Data Source H PYLORI SERUM QUANT IgG ARON 08/01/2019 12:00:00 AM EDT eCW1 ([facility]) Name Value Range Interpretation Code Description Data Inga rce(s) Supporting Document(s) 0.28 0.00-0.79 H PYLORI SERUM QUANT IgG ARON eCW1 ([facility]) ID Date Data Source H PYLORI QUALITATIVE IGG 07/10/2019 12:00:00 AM EDT eCW1 ([facility]) Name Value Range Interpretation Code Description Data Inga rce(s) Supporting Document(s) NEGATIVE NEGATIVE H PYLORI QUALITATIVE IgG eCW1 ([facility]) ID Date Data Source DDIMER QUANT 06/24/2019 12:00:00 AM EDT eCW1 ([facility]) Name Value Range Interpretation Code Description Data Inga rce(s) Supporting Document(s) < 270 <500 D-DIMER QUANT eCW1 ([facility]) ID Date Data Source CPK CREATINE PHOSPHOKINASE 06/24/2019 12:00:00 AM EDT eCW1 ( [facility]) Name Value Range Interpretation Code Description Data Inga rce(s) Supporting Document(s) 49 26-192 CPK CREATINE PHOSPHOKINASE eCW 1 ([facility]) ID Date Data Source Urinalysis, no micro 06/24/2019 12:00:00 AM EDT eCW1 ([facility]) Name Value Range Interpretation Code Description Data Inga rce(s) Supporting Document(s) 1.020 1.002 - 1.035 Spec gravity eCW1 ([facility]) 5 5.0 - 9.0 pH eCW1 (Counts include 234 beds at the [facility]) neg Negative - Leukocyte eCW1 ([facility]) neg Negative - Nitrate eCW1 ([facility]) neg Negative - mg/dl Protein eCW1 ([facility]) neg Negative - mg/dl Glucose eCW1 ([facility]) neg Negative - mg/dl Ketones eCW1 ([facility]) neg Negative - Bilirubin eCW1 ([facility]) neg Normal - mg/dl Urobili eCW1 ([facility]) neg Negative - Blood eCW1 ([facility]) Yes Internal QC Acceptable (Y/N) e CW1 ([facility]) Procedure Social History Code Duration Value Status Description Data Source(s ) Smoking 04/21/2020 12:00:00 AM EST Former Smoker completed Former Smoker eCW1 ([facility]) Smoking 04/21/2020 12:00:00 AM EST Former Smoker completed Former Smoker eCW1 ([facility]) Smoking 03/10/2020 12:00:00 AM EST Former Smoker completed Former Smoker eCW1 ([facility]) Smoking 03/10/2020 12:00:00 AM EST Former Smoker completed Former Smoker eCW1 ([facility]) Smoking 08/29/2019 12:00:00 AM EDT Former Smoker completed Former Smoker eCW1 ([facility]) Smoking 08/29/2019 12:00:00 AM EDT Former Smoker completed Former Smoker eCW1 ([facility]) Smoking 08/29/2019 12:00:00 AM EDT Former Smoker completed Former Smoker eCW1 ([facility]) Smoking 08/29/2019 12:00:00 AM EDT Former Smoker completed Former Smoker eCW1 ([facility]) Smoking 08/29/2019 12:00:00 AM EDT Former Smoker completed Former Smoker eCW1 ([facility]) Smoking 08/29/2019 12:00:00 AM EDT Former Smoker completed Former Smoker eCW1 ([facility]) Smoking 08/29/2019 12:00:00 AM EDT Former Smoker completed Former Smoker eCW1 ([facility]) Vital Signs ID Date Data Source UNK Name Value Range Interpretation Code Description Data Source(s) Diastolic blood pressure 78 mm[Hg] 78 mm[Hg] eCW1 ([facility]) Systolic blood pressure 120 mm[Hg] 120 mm[Hg] e CW1 ([facility]) Body temperature 96.5 [degF] 96.5 [degF] eCW1 ( [facility]) Respiratory rate 18 /min 18 /min eCW1 ([facility]) Heart rate 99 /min 99 /min eCW1 ([facility]) Body mass index (BMI) [Ratio] 33.94 kg/m2 33.94 kg/m2 W1 ([facility]) Body height 65 [in_i] 65 [in_i] eCW1 ([facility]) Body weight 204 [lb_av] 204 [lb_av] eCW1 ([facility]) Diastolic blood pressure 78 mm[Hg] 78 mm[Hg] eCW1 ([facility]) Systolic blood pressure 122 mm[Hg] 122 mm[Hg] e CW1 ([facility]) Body temperature 96.5 [degF] 96.5 [degF] eCW1 ( [facility]) Respiratory rate 18 /min 18 /min eCW1 ([facility]) Heart rate 111 /min 111 /min eCW1 ([facility]) Body mass index (BMI) [Ratio] 33.61 kg/m2 33.61 kg/m2 W1 ([facility]) Body height 65 [in_i] 65 [in_i] eCW1 ([facility]) Body weight 202 [lb_av] 202 [lb_av] eCW1 ([facility]) Body surface area Derived from formula 1.97 m2 1.97 m2 [facility] ([facility]) Body weight 90.266 kg 90.266 kg [facility] ([facility]) [place] body weight 125 [lb_av] 125 [lb_av] MED[facility] T ([facility]) Body mass index (BMI) [Ratio] 33.1 kg/m2 33.1 k g/m2 [facility] ([facility]) Body weight 199.00 [lb_av] 199.00 [lb_av] MEDEN T ([facility]) Body height 65 [in_i] 65 [in_i] [facility] ([facility]) 5'5" Diastolic blood pressure 90 mm[Hg] 90 mm[Hg] [facility] ([facility]) Systolic blood pressure 140 mm[Hg] 140 mm[Hg] M EDENT ([facility]) Body mass index (BMI) [Ratio] 31.6 kg/m2 31.6 k g/m2 [facility] ([facility], [facility]) Body height 65 [in_i] 65 [in_i] [facility] ([facility], [facility]) 5'5" Body weight 190.00 [lb_av] 190.00 [lb_av] MEDEN T ([facility], [facility]) Body temperature 97.8 [degF] 97.8 [degF] [facility] ([facility], [facility]) Oxygen saturation in Arterial blood by Pulse oximetry 98 % 98 % [facility] ([facility], [facility]) Respiratory rate 17 /min 17 /min [facility] ( [facility], [facility]) Heart rate 104 /min 104 /min [facility] ([facility], [facility]) Diastolic blood pressure 81 mm[Hg] 81 mm[Hg] [facility] ([facility], [facility]) Systolic blood pressure 118 mm[Hg] 118 mm[Hg] M EDENT ([facility], [facility]) Diastolic blood pressure 72 mm[Hg] 72 mm[Hg] eCW1 ([facility]) Systolic blood pressure 120 mm[Hg] 120 mm[Hg] e CW1 ([facility]) Body temperature 98.0 [degF] 98.0 [degF] eCW1 ( [facility]) Respiratory rate 17 /min 17 /min eCW1 ([facility]) Heart rate 88 /min 88 /min eCW1 ([facility]) Body mass index (BMI) [Ratio] 31.45 kg/m2 31.45 kg/m2 eCW1 ([facility]) Body height 65 [in_i] 65 [in_i] eCW1 ([facility]) Body weight 189 [lb_av] 189 [lb_av] eCW1 ([facility]) Body surface area Derived from formula 1.94 m2 1.94 m2 [facility] ([facility]) Body weight 86.638 kg 86.638 kg [facility] ([facility]) [place] body weight 125 [lb_av] 125 [lb_av] MED[facility] T ([facility]) Body mass index (BMI) [Ratio] 31.8 kg/m2 31.8 k g/m2 [facility] ([facility]) Body weight 191.00 [lb_av] 191.00 [lb_av] MEDEN T ([facility]) Body height 65 [in_i] 65 [in_i] [facility] ([facility]) 5'5" Diastolic blood pressure 86 mm[Hg] 86 mm[Hg] [facility] ([facility]) Systolic blood pressure 120 mm[Hg] 120 mm[Hg] M EDENT ([facility]) Diastolic blood pressure 78 mm[Hg] 78 mm[Hg] eCW1 ([facility]) Systolic blood pressure 118 mm[Hg] 118 mm[Hg] e CW1 ([facility]) Body temperature 97.3 [degF] 97.3 [degF] eCW1 ( [facility]) Respiratory rate 17 /min 17 /min eCW1 ([facility]) Heart rate 84 /min 84 /min eCW1 ([facility]) Body mass index (BMI) [Ratio] 31.81 kg/m2 31.81 kg/m2 eCW1 ([facility]) Body height 65 [in_us] 65 [in_us] eCW1 ([facility]) Body weight Measured 191.2 [lb_av] 191.2 [lb_av ] eCW1 ([facility]) Diastolic blood pressure 78 mm[Hg] 78 mm[Hg] eCW1 ([facility]) Systolic blood pressure 124 mm[Hg] 124 mm[Hg] e CW1 ([facility]) Body temperature 97.5 [degF] 97.5 [degF] eCW1 ( [facility]) Respiratory rate 17 /min 17 /min eCW1 ([facility]) Heart rate 96 /min 96 /min eCW1 ([facility]) Body mass index (BMI) [Ratio] 30.98 kg/m2 30.98 kg/m2 eCW1 ([facility]) Body height 65 [in_us] 65 [in_us] eCW1 ([facility]) Body weight Measured 186.2 [lb_av] 186.2 [lb_av ] eCW1 ([facility]) Diastolic blood pressure 74 mm[Hg] 74 mm[Hg] eCW1 ([facility]) Systolic blood pressure 118 mm[Hg] 118 mm[Hg] e CW1 ([facility]) Body temperature 97.7 [degF] 97.7 [degF] eCW1 ( [facility]) Respiratory rate 17 /min 17 /min eCW1 ([facility]) Heart rate 116 /min 116 /min eCW1 ([facility]) Body mass index (BMI) [Ratio] 29.98 kg/m2 29.98 kg/m2 eCW1 ([facility]) Body height 65 [in_us] 65 [in_us] eCW1 ([facility]) Body weight Measured 180.2 [lb_av] 180.2 [lb_av ] eCW1 ([facility]) Body mass index (BMI) [Ratio] 29.1 kg/m2 29.1 k g/m2 [facility] ([facility], [facility]) Body height 65 [in_i] 65 [in_i] [facility] ([facility]) 5'5" Body weight 175.00 [lb_av] 175.00 [lb_av] MEDEN T ([facility]) Body temperature 98.9 [degF] 98.9 [degF] [facility] ([facility]) Oxygen saturation in Arterial blood by Pulse oximetry 98 % 98 % [facility] ([facility]) Respiratory rate 12 /min 12 /min [facility] ( [facility]) Heart rate 111 /min 111 /min [facility] ([facility], [facility]) Diastolic blood pressure 99 mm[Hg] 99 mm[Hg] [facility] ([facility]) Systolic blood pressure 138 mm[Hg] 138 mm[Hg] M EDENT ([facility]) Diastolic blood pressure 68 mm[Hg] 68 mm[Hg] eCW1 ([facility]) Systolic blood pressure 110 mm[Hg] 110 mm[Hg] e CW1 ([facility]) Body temperature 98.2 [degF] 98.2 [degF] eCW1 ( [facility]) Respiratory rate 17 /min 17 /min eCW1 ([facility]) Heart rate 114 /min 114 /min eCW1 ([facility]) Body mass index (BMI) [Ratio] 28.72 kg/m2 28.72 kg/m2 W1 ([facility]) Body height 65 [in_us] 65 [in_us] eCW1 ([facility]) Body weight Measured 172.6 [lb_av] 172.6 [lb_av ] eCW1 ([facility]) Patient Treatment Plan of Care Planned Activity Planned Date Details Description Data Source (s) 24 HR venlafaxine 37.5 MG Extended Release Oral Capsul e [Effexor] 10/15/2019 12:00:00 AM EDT eCW1 (Counts include 234 beds at the [facility]) 24 HR venlafaxine 37.5 MG Extended Release Oral Capsul e [Effexor] 10/15/2019 12:00:00 AM EDT eCW1 (Counts include 234 beds at the [facility]) 24 HR venlafaxine 37.5 MG Extended Release Oral Capsul e [Effexor] 10/15/2019 12:00:00 AM EDT eCW1 (Counts include 234 beds at the [facility]) 24 HR venlafaxine 37.5 MG Extended Release Oral Capsul e [Effexor] 10/15/2019 12:00:00 AM EDT eCW1 (Counts include 234 beds at the [facility]) 24 HR venlafaxine 37.5 MG Extended Release Oral Capsul e [Effexor] 10/15/2019 12:00:00 AM EDT eCW1 (Counts include 234 beds at the [facility]) 24 HR venlafaxine 37.5 MG Extended Release Oral Capsul e [Effexor] 10/15/2019 12:00:00 AM EDT eCW1 (Counts include 234 beds at the [facility]) 24 HR venlafaxine 37.5 MG Extended Release Oral Capsul e [Effexor] 10/15/2019 12:00:00 AM EDT eCW1 (Counts include 234 beds at the [facility]) Sulfasalazine 500 MG Oral Tablet 08/01/2019 12:00:00 AM EDT eCW1 ([facility]) Sulfasalazine 500 MG Oral Tablet 08/01/2019 12:00:00 AM EDT eCW1 ([facility]) celecoxib 200 MG Oral Capsule [Celebrex] 06/27/2019 12:00:00 AM EDT eCW1 ([facility]) celecoxib 200 MG Oral Capsule [Celebrex] 06/27/2019 12:00:00 AM EDT eCW1 ([facility]) gabapentin 100 MG Oral Capsule 06/24/2019 12:00:00 AM EDT eCW1 ([facility]) Methocarbamol 500 MG Oral Tablet 06/24/2019 12:00:00 AM EDT eCW1 ([facility]) gabapentin 100 MG Oral Capsule 06/24/2019 12:00:00 AM EDT eCW1 ([facility]) Methocarbamol 500 MG Oral Tablet 06/24/2019 12:00:00 AM EDT eCW1 ([facility]) Menthol 100 MG/ML / methyl salicylate 30 0 MG/ML Topical Cream [Icy Hot with Methyl Salicylate] 06/24/2019 12:00:00 AM EDT eC W1 ([facility]) gabapentin 100 MG Oral Capsule 06/24/2019 12:00:00 AM EDT eCW1 ([facility]) tizanidine 2 MG Oral Tablet 04/10/2019 12:00:00 AM EST eCW1 ([facility]) Naproxen 250 MG Oral Tablet 04/10/2019 12:00:00 AM EST eCW1 ([facility])
--- NOTE | 2020-05-24 22:16 | REPVR ---
PROCEDURE INFORMATION: Exam: XR Chest, 1 View Exam date and time: 05/24/20 (9:14pm) Age: 34 years old Clinical indication: Chest pain TECHNIQUE: Imaging protocol: Portable CXR Views: 1 view COMPARISON: Chest films of 06/24/19 FINDINGS: Lungs: Unremarkable. No consolidation. Pleural spaces: Unremarkable. No pleural effusions. No pneumothorax. Heart/Mediastinum: Unremarkable. No cardiomegaly. Bones/joints: Unremarkable. IMPRESSION: No acute findings. Lung vernon remain clear. Electronically signed by: Antonette Damico On 05/24/2020 22:16:05 PM
[2020-05-24 23:46] VITALS: BP 136/84
--- NOTE | 2020-05-25 16:32 | ECGEPIP ---
[facility] - ED Test Date: 2020-05-24 [facility] Department: Room: - Gender: Female [employer] Office: [place] : 1985 Requested By: Evan Lopez Order Number: [id number] Reading MD: Oswaldo Pace Measurements Intervals [place] Rate: 81 P: 26 AR: 126 QRS: 40 QRSD: 96 T: 24 QT: 384 QTc: 446 Interpretive Statements Normal sinus rhythm Nonspecific T wave abnormality Comparison tracing not on file Electronically Signed on 05-25-2020 16:32:19 EST by Oswaldo Pace
== END 2020-05-24 23:57 | disposition home or self-care (01) ==
LOC: M ED 20:55
DX: S29.011A Strain of muscle and tendon of front wall of thorax, initial encounter (principal); X58.XXXA Exposure to other specified factors, initial encounter; Y92.9 Unspecified place or not applicable; Y93.9 Activity, unspecified; Y99.9 Unspecified external cause status; I10 Essential (primary) hypertension; K50.90 Crohn's disease, unspecified, without complications; F17.200 Nicotine dependence, unspecified, uncomplicated; Z79.899 Other long term (current) drug therapy

== ENCOUNTER 2020-05-26 08:53 | Outpatient (CLI) | payer BC ==
[~2020-05-26] VITALS: Ht 165.1 cm; Wt 91.1 kg
[~2020-05-26 08:53] MED LIST changes: +ESOM40CA35 PO; +SULF1TAB30 PO
[2020-05-26 09:15] VITALS: BP 128/81
[2020-05-26] MEDS ORDERED: VEDOLIZUMAB 300 MG in NS 250 ML IV ONE (10:00)
[2020-05-26 10:15] VITALS: BP 95/56
== END 2020-05-26 10:15 | disposition home or self-care (01) ==
LOC: M INFU 08:53
PROVIDERS: ATTEND Internal Medicine Gastroenterology
DX: K50.90 Crohn's disease, unspecified, without complications (principal)
CPT/HCPCS: 96365; J3380

== ENCOUNTER 2020-07-07 08:54 | Outpatient (CLI) | payer BC ==
[~2020-07-07] VITALS: Ht 165.1 cm; Wt 91.1 kg
[2020-07-07] MEDS ORDERED: VEDOLIZUMAB 300 MG in NS 250 ML IV ONE (09:00)
[2020-07-07 09:01] VITALS: BP 134/93
[2020-07-07 09:06] VITALS: BP 134/93
[2020-07-07 10:05] VITALS: BP 138/83
== END 2020-07-07 10:15 | disposition home or self-care (01) ==
LOC: M INFU 08:54
PROVIDERS: ATTEND Internal Medicine Gastroenterology
DX: K50.90 Crohn's disease, unspecified, without complications (principal)
CPT/HCPCS: 96365; J3380

== ENCOUNTER 2020-08-20 08:09 | Outpatient (CLI) | payer BC ==
[~2020-08-20] VITALS: Ht 165.1 cm; Wt 91.1 kg
[~2020-08-20 08:09] MED LIST changes: +VEDOLIZUMAB 300 MG in NS 250 ML IV ONE
[2020-08-20 08:15] VITALS: BP 130/85
[2020-08-20 09:50] VITALS: BP 127/84
== END 2020-08-20 09:50 | disposition home or self-care (01) ==
LOC: M INFU 08:09
PROVIDERS: ATTEND Internal Medicine Gastroenterology
DX: K50.90 Crohn's disease, unspecified, without complications (principal)
CPT/HCPCS: 96365; J3380

== ENCOUNTER → 2020-10-19 | Outpatient (CLI) | payer BC ==
[~2020-10-19] MED LIST changes: -VEDOLIZUMAB 300 MG in NS 250 ML IV ONE
--- NOTE | 2020-10-19 16:56 | REP ---
INDICATION: PAIN. COMPARISON: None. TECHNIQUE: Three views right shoulder. FINDINGS: There is no acute fracture or dislocation. There is mild hypertrophic spurring of the distal end of the clavicle. There is ill-defined calcification along the lateral margin of the acromion. This suggests calcification of the tendon of the deltoid muscle at this location in raises the possibility of calcific tendinitis. IMPRESSION: Ill-defined calcific density along the lateral aspect of the acromion suggesting calcific tendinitis of the deltoid. <Electronically signed by Shad Mishra > 10/19/20 [id number]
== END ==
LOC: M WUC 15:22
PROVIDERS: ATTEND Physician Assistant
DX: M25.511 Pain in right shoulder (principal); R93.89 Abnormal findings on diagnostic imaging of other specified body structures

== ENCOUNTER 2020-10-22 12:21 | Outpatient (CLI) | payer BC ==
[~2020-10-22] VITALS: Ht 165.1 cm; Wt 91.0 kg
[2020-10-22] MEDS ORDERED: VEDOLIZUMAB 300 MG in NS 250 ML IV ONE (12:30)
[2020-10-22 13:57] VITALS: BP 142/97
== END 2020-10-22 14:00 | disposition home or self-care (01) ==
LOC: M INFU 12:21
PROVIDERS: ATTEND Internal Medicine Gastroenterology
DX: K50.90 Crohn's disease, unspecified, without complications (principal)
CPT/HCPCS: 96365; J3380

== ENCOUNTER 2020-12-03 12:44 | Outpatient (CLI) | payer BC ==
[~2020-12-03] VITALS: Ht 165.1 cm; Wt 89.2 kg
[~2020-12-03 12:44] MED LIST changes: +VEDOLIZUMAB 300 MG in NS 250 ML IV ONE
[2020-12-03 13:00] VITALS: BP 138/90
[2020-12-03 13:55] VITALS: BP 128/88
== END 2020-12-03 14:00 | disposition home or self-care (01) ==
LOC: M INFU 12:44
PROVIDERS: ATTEND Internal Medicine Gastroenterology
DX: K50.90 Crohn's disease, unspecified, without complications (principal)
CPT/HCPCS: 96365; J3380

== ENCOUNTER 2021-01-31 09:32 | Outpatient (CLI) | payer BC ==
[~2021-01-31] VITALS: Ht 165.1 cm; Wt 79.5 kg
[2021-01-31 09:52] VITALS: BP 160/85
[2021-01-31] MEDS ORDERED: VEDOLIZUMAB 300 MG in NS 250 ML IV ONE (10:00)
[2021-01-31 10:59] VITALS: BP 156/87
== END 2021-01-31 11:00 | disposition home or self-care (01) ==
LOC: M INFU 09:32
PROVIDERS: ATTEND Internal Medicine Gastroenterology
DX: K50.90 Crohn's disease, unspecified, without complications (principal)
CPT/HCPCS: 96365; J3380

== ENCOUNTER 2021-03-11 11:56 | Outpatient (CLI) | payer BC ==
[~2021-03-11] VITALS: Ht 165.1 cm; Wt 79.5 kg
[~2021-03-11 11:56] MED LIST changes: -VEDOLIZUMAB 300 MG in NS 250 ML IV ONE
[2021-03-11 12:10] VITALS: BP 130/90
[2021-03-11] MEDS ORDERED: VEDOLIZUMAB 300 MG in NS 250 ML IV ONE (12:30)
[2021-03-11 13:15] VITALS: BP 142/100
== END 2021-03-11 13:20 | disposition home or self-care (01) ==
LOC: M INFU 11:56
PROVIDERS: ATTEND Internal Medicine Gastroenterology
DX: K50.90 Crohn's disease, unspecified, without complications (principal)
CPT/HCPCS: 96365; J3380

== ENCOUNTER → 2021-04-06 | Outpatient (REF) | payer BC | LOC: M SFHCWAGY 18:13 | PROVIDERS: ATTEND Advanced Practice Midwife | DX: N92.0 Excessive and frequent menstruation with regular cycle (principal) ==

== ENCOUNTER → 2021-04-06 | Outpatient (CLI) | payer BC ==
[2021-04-06 14:03] LABS: BASO # 0.1 10^3/uL (0.0-0.2); BASO % 0.6 % (0.0-1.0); EOS # 0.3 10^3/uL (0.0-0.5); EOS % 3.1 % (0.0-3.0); HEMATOCRIT 38.2 % (36.0-47.0); HEMOGLOBIN 11.9 g/dl (12.0-15.5); LYMPH # 1.7 10^3/uL (1.5-5.0); LYMPH % 21.5 % (24.0-44.0); MEAN CORPUSCULAR HGB CONC 31.2 g/dl (32.0-36.5); MEAN CORPUSCULAR VOLUME 86.6 fl (80.0-96.0); MONO # 0.7 10^3/uL (0.0-0.8); NEUTROPHILS # 5.3 10^3/uL (1.5-8.5); NEUTROPHILS % 65.4 % (36.0-66.0); PLATELET COUNT, AUTOMATED 456 10^3/uL (150-450); RED BLOOD COUNT 4.41 10^6/uL (4.00-5.40); WHITE BLOOD COUNT 8.1 10^3/uL (4.0-10.0)
[2021-04-06 14:31] LABS: ALBUMIN 3.7 GM/DL (3.2-5.2); ALT/SGPT 41 U/L (12-78); BILIRUBIN,TOTAL 0.5 MG/DL (0.2-1.0); BLOOD UREA NITROGEN 12 MG/DL (7-18); CALCIUM LEVEL 9.5 MG/DL (8.5-10.1); CARBON DIOXIDE LEVEL 30 MEQ/L (21-32); CHLORIDE LEVEL 102 MEQ/L (98-107); CHOLESTEROL LEVEL 179 MG/DL (<200); CHOLESTEROL RISK RATIO 2.386 (<5); CREATININE FOR GFR 0.69 MG/DL (0.55-1.30); FREE T4 0.95 NG/DL (0.76-1.46); GLOMERULAR FILTRATION RATE > 60.0 (>60); GLUCOSE, FASTING 102 MG/DL (70-100); HDL CHOLESTEROL 75 MG/DL (>40); LDL CHOLESTEROL 79 MG/DL (<100); NON-HDL-C 104 MG/DL; POTASSIUM SERUM 4.7 MEQ/L (3.5-5.1); SODIUM LEVEL 137 MEQ/L (136-145); TOTAL PROTEIN 7.9 GM/DL (6.4-8.2); TRIGLYCERIDES LEVEL 126 MG/DL (<150)
[2021-04-06 14:32] LABS: TOTAL 25(OH) VITAMIN D 14.3 NG/ML (30.0-100.0)
[2021-04-06 14:33] LABS: PTH INTACT 52.9 PG/ML (18.5-88.0)
[2021-04-06 18:52] LABS: HEMOGLOBIN A1c 5.3 %
== END ==
LOC: M PLALAB 11:05
PROVIDERS: ATTEND Physician Assistant Medical
DX: R63.5 Abnormal weight gain (principal)

== ENCOUNTER → 2021-04-08 | Outpatient (CLI) | payer BC | LOC: M WHC 10:22 | PROVIDERS: ATTEND Advanced Practice Midwife | DX: N92.0 Excessive and frequent menstruation with regular cycle (principal) ==

== ENCOUNTER 2021-04-22 12:10 | Outpatient (CLI) | payer BC ==
[~2021-04-22] VITALS: Ht 165.1 cm; Wt 82.7 kg
[2021-04-22] MEDS ORDERED: VEDOLIZUMAB 300 MG in NS 250 ML IV ONE (12:30)
[2021-04-22 12:35] VITALS: BP 131/87
[2021-04-22 13:50] VITALS: BP 158/90
== END 2021-04-22 13:50 | disposition home or self-care (01) ==
LOC: M INFU 12:10
PROVIDERS: ATTEND Internal Medicine Gastroenterology
DX: K50.90 Crohn's disease, unspecified, without complications (principal)
CPT/HCPCS: 96365; J3380

== ENCOUNTER → 2021-05-09 | Outpatient (REF) | payer BC | LOC: M LAB REF 16:51 | PROVIDERS: ATTEND Physician Assistant Medical | DX: R30.0 Dysuria (principal) ==

== ENCOUNTER 2021-06-09 12:06 | Outpatient (CLI) | payer BC ==
[~2021-06-09] VITALS: Ht 165.1 cm; Wt 83.0 kg
[~2021-06-09 12:06] MED LIST changes: -D31000TA2 PO; +VEDOLIZUMAB 300 MG in NS 250 ML IV ONE; +VITA100093 PO
[2021-06-09 12:29] VITALS: BP 144/80
[2021-06-09] MEDS ORDERED: VEDOLIZUMAB 300 MG in NS 250 ML IV ONE (12:30)
[2021-06-09 13:42] VITALS: BP 162/82
== END 2021-06-09 13:40 | disposition home or self-care (01) ==
LOC: M INFU 12:06
PROVIDERS: ATTEND Internal Medicine Gastroenterology
DX: K50.90 Crohn's disease, unspecified, without complications (principal)
CPT/HCPCS: 96365; J3380

== ENCOUNTER 2021-08-10 13:25 | Outpatient (CLI) | payer BC ==
[~2021-08-10] VITALS: Ht 165.1 cm; Wt 83.0 kg
[2021-08-10] MEDS ORDERED: VEDOLIZUMAB 300 MG in NS 250 ML IV ONE (13:30)
[2021-08-10 13:59] VITALS: BP 130/97
[2021-08-10 14:24] VITALS: BP 169/96
== END 2021-08-10 14:30 | disposition home or self-care (01) ==
LOC: M INFU 13:25
PROVIDERS: ATTEND Internal Medicine Gastroenterology
DX: K50.90 Crohn's disease, unspecified, without complications (principal)
CPT/HCPCS: 96365; J3380

== ENCOUNTER 2021-09-21 10:10 | Outpatient (CLI) | payer BC ==
[~2021-09-21] VITALS: Ht 165.1 cm; Wt 83.0 kg
[2021-09-21 10:10] VITALS: BP 152/90
[~2021-09-21 10:10] MED LIST changes: -VEDOLIZUMAB 300 MG in NS 250 ML IV ONE
[2021-09-21 11:10] VITALS: BP 154/100
[2021-09-21] MEDS ORDERED: VEDOLIZUMAB 300 MG in NS 250 ML IV ONE (12:30)
== END 2021-09-21 11:10 | disposition home or self-care (01) ==
LOC: M INFU 10:10
PROVIDERS: ATTEND Internal Medicine Gastroenterology
DX: K50.90 Crohn's disease, unspecified, without complications (principal)
CPT/HCPCS: 96365; J3380

== ENCOUNTER 2021-11-02 12:35 | Outpatient (CLI) | payer BC ==
[~2021-11-02] VITALS: Ht 165.1 cm; Wt 81.1 kg
[2021-11-02 12:35] VITALS: BP 142/99
[~2021-11-02 12:35] MED LIST changes: +VEDOLIZUMAB 300 MG in NS 250 ML IV ONE
[2021-11-02 13:30] VITALS: BP 155/76
== END 2021-11-02 13:30 ==
LOC: M INFU 12:35
PROVIDERS: ATTEND Internal Medicine Gastroenterology
DX: K50.90 Crohn's disease, unspecified, without complications (principal)

== ENCOUNTER 2021-12-14 11:55 | Outpatient (CLI) | payer BC ==
[~2021-12-14] VITALS: Ht 165.1 cm; Wt 81.1 kg
[2021-12-14 11:55] VITALS: BP 140/77
[~2021-12-14 11:55] MED LIST changes: -VEDOLIZUMAB 300 MG in NS 250 ML IV ONE
[2021-12-14] MEDS ORDERED: VEDOLIZUMAB 300 MG in NS 250 ML IV ONE (12:00)
[2021-12-14 12:30] VITALS: BP 129/85
== END 2021-12-14 12:40 | disposition home or self-care (01) ==
LOC: M INFU 11:55
PROVIDERS: ATTEND Internal Medicine Gastroenterology
DX: K50.90 Crohn's disease, unspecified, without complications (principal)

== ENCOUNTER 2022-01-25 12:30 | Outpatient (CLI) | payer BC ==
[~2022-01-25] VITALS: Ht 165.1 cm; Wt 81.1 kg
[~2022-01-25 12:30] MED LIST changes: +VEDOLIZUMAB 300 MG in NS 250 ML IV ONE
[2022-01-25 12:50] VITALS: BP 141/85
[2022-01-25 13:30] VITALS: BP 135/89
== END 2022-01-25 13:30 | disposition home or self-care (01) ==
LOC: M INFU 12:30
PROVIDERS: ATTEND Internal Medicine Gastroenterology
DX: K50.90 Crohn's disease, unspecified, without complications (principal)
CPT/HCPCS: 96365; J3380

== ENCOUNTER 2022-03-08 12:10 | Outpatient (CLI) | payer BC ==
[~2022-03-08] VITALS: Ht 165.1 cm; Wt 81.1 kg
[~2022-03-08 12:10] MED LIST changes: -VEDOLIZUMAB 300 MG in NS 250 ML IV ONE
[2022-03-08 12:15] VITALS: BP 141/98
[2022-03-08] MEDS ORDERED: VEDOLIZUMAB 300 MG in NS 250 ML IV ONE (12:30)
[2022-03-08 13:10] VITALS: BP 148/88
== END 2022-03-08 13:10 | disposition home or self-care (01) ==
LOC: M INFU 12:10
PROVIDERS: ATTEND Internal Medicine Gastroenterology
DX: K50.90 Crohn's disease, unspecified, without complications (principal)
CPT/HCPCS: 96365; J3380

== ENCOUNTER → 2022-04-24 | Outpatient (CLI) | payer BC ==
[~2022-04-24] MED LIST changes: +ATIV1TAB10 PO; +OMEP40CA4 PO; +VALS40TA9 PO
== END ==
LOC: M LABSMTC 09:31
PROVIDERS: ATTEND Anesthesiology
DX: Z01.818 Encounter for other preprocedural examination (principal)

== ENCOUNTER 2022-04-26 10:17 | Day surgery (SDC) | payer BC ==
[~2022-04-26] VITALS: Ht 165.1 cm; Wt 80.3 kg
[2022-04-26] MEDS ORDERED: LR 1,000 ML IV SCH (10:55)
[2022-04-26 11:09] LABS: HEMATOCRIT 33.1 % (36.0-47.0); HEMOGLOBIN 9.8 g/dl (12.0-15.5); MEAN CORPUSCULAR HEMOGLOBIN 22.1 pg (27.0-33.0); MEAN CORPUSCULAR HGB CONC 29.6 g/dl (32.0-36.5); MEAN CORPUSCULAR VOLUME 74.5 fl (80.0-96.0); PLATELET COUNT, AUTOMATED 418 10^3/uL (150-450); RED BLOOD COUNT 4.44 10^6/uL (4.00-5.40); WHITE BLOOD COUNT 4.9 10^3/uL (4.0-10.0)
[2022-04-26] MEDS ORDERED: LIDOCAINE 2% 100MG/5ML SDV (FOR ANES.) As Ordered ONE (11:16)
[2022-04-26] MEDS ORDERED: KETOROLAC 60MG 2ML VIAL As Ordered ONE (11:16)
[2022-04-26] MEDS ORDERED: propofoL 200 MG/20 ML VIAL As Ordered ONE (11:16)
[2022-04-26] MEDS ORDERED: MIDAZOLAM INJ 2MG/2ML VIAL As Ordered ONE (11:16)
[2022-04-26] MEDS ORDERED: fentaNYL 100 MCG/2 ML INJECTION As Ordered ONE (11:16)
[2022-04-26] MEDS ORDERED: ONDANSETRON 4MG 2ML VIAL As Ordered ONE (11:16)
[2022-04-26] MEDS ORDERED: ONDANSETRON 4MG 2ML VIAL IV PRN (11:45)
[2022-04-26] MEDS ORDERED: fentaNYL 100 MCG/2 ML INJECTION IV PRN (11:45)
[2022-04-26] MEDS ORDERED: METOCLOPRAMIDE INJ 10MG/2ML VIAL IV PRN (11:45)
[2022-04-26] MEDS ORDERED: OXYC1TAB23 PO (11:46)
[2022-04-26] MEDS: oxyCODONE 5MG TAB PO PRN ×2 (12:15→12:46)
[2022-04-26 13:57] VITALS: BP 153/88
== END 2022-04-26 14:11 | disposition home or self-care (01) ==
LOC: M SDC 10:17
PROVIDERS: ATTEND Obstetrics & Gynecology
DX: N92.0 Excessive and frequent menstruation with regular cycle (principal); K21.9 Gastro-esophageal reflux disease without esophagitis; I10 Essential (primary) hypertension; K50.90 Crohn's disease, unspecified, without complications; Z79.899 Other long term (current) drug therapy; F17.200 Nicotine dependence, unspecified, uncomplicated; F41.9 Anxiety disorder, unspecified; F32.A Depression, unspecified
CPT/HCPCS: 36415; 58563; 81025; 85027; 86850; 86900; 86901; 88305; J1100; J1885; J2250; J2405; J3010

== ENCOUNTER 2022-05-05 12:30 | Outpatient (CLI) | payer BC ==
[~2022-05-05] VITALS: Ht 165.1 cm; Wt 81.1 kg
[2022-05-05 12:30] VITALS: BP 144/80
[~2022-05-05 12:30] MED LIST changes: +OXYC1TAB23 PO; +VEDOLIZUMAB 300 MG in NS 250 ML IV ONE
[2022-05-05 14:00] VITALS: BP 157/104
== END 2022-05-05 14:00 | disposition home or self-care (01) ==
LOC: M INFU 12:30
PROVIDERS: ATTEND Internal Medicine Gastroenterology
DX: K50.90 Crohn's disease, unspecified, without complications (principal)
CPT/HCPCS: 96365; J3380

== ENCOUNTER → 2022-05-08 | Outpatient (REF) | payer BC ==
[~2022-05-08] MED LIST changes: -VEDOLIZUMAB 300 MG in NS 250 ML IV ONE
[2022-05-08 18:59] LABS: APPEARANCE, URINE MANUAL HAZY (CLEAR)
[2022-05-08 19:00] LABS: BILIRUBIN, URINE MANUAL NEGATIVE (NEGATIVE); BLOOD URINE MANUAL POSITIVE (NEGATIVE); COLOR, URINE MANUAL YELLOW (YELLOW); GLUCOSE, URINE (UA) MANUAL NEGATIVE (NEGATIVE); KETONE, URINE MANUAL NEGATIVE (NEGATIVE); LEUKOCYTE ESTERASE, URINE MAN POSITIVE (NEGATIVE); NITRITE, URINE MANUAL NEGATIVE (NEGATIVE); PH,URINE MAN 5.5 UNITS (5.0 - 7.0); PROTEIN, URINE MANUAL 1+ mg/dL (NEGATIVE); UROBILINOGEN, URINE MANUAL NORMAL (NORMAL)
[2022-05-08 19:30] LABS: BACTERIA, URINE SMALL AMOUNT; RBC, URINE TNTC /hpf (0-3); SQUAMOUS EPITHELIAL CELL URINE SMALL AMOUNT /hpf (SMALL AMT); WBC, URINE TNTC /hpf (0-3)
[2022-05-08 19:31] LABS: AMORPHOUS SEDIMENT, URINE SMALL AMOUNT (NEGATIVE); HYALINE CAST, URINE NONE SEEN /lpf (0-1)
== END ==
LOC: M SFHCWAGY 17:00
PROVIDERS: ATTEND Advanced Practice Midwife
DX: R30.0 Dysuria (principal)

== ENCOUNTER → 2022-06-12 | Outpatient (CLI) | payer BC | LOC: M RAD 14:23 → M WHC 14:23 | PROVIDERS: ATTEND Physician Assistant Medical | DX: M79.605 Pain in left leg (principal) ==

== ENCOUNTER → 2022-06-22 | Outpatient (CLI) | payer BC ==
[2022-06-22 13:14] LABS: BASO % 0.6 % (0.0-1.0); EOS # 0.1 10^3/uL (0.0-0.5); EOS % 1.5 % (0.0-3.0); HEMATOCRIT 31.5 % (36.0-47.0); HEMOGLOBIN 9.1 g/dl (12.0-15.5); LYMPH # 0.8 10^3/uL (1.5-5.0); MEAN CORPUSCULAR HEMOGLOBIN 21.9 pg (27.0-33.0); MEAN CORPUSCULAR HGB CONC 28.9 g/dl (32.0-36.5); MEAN CORPUSCULAR VOLUME 75.7 fl (80.0-96.0); MONO # 0.2 10^3/uL (0.0-0.8); MONO % 3.7 % (2.0-8.0); NEUTROPHILS # 5.2 10^3/uL (1.5-8.5); NEUTROPHILS % 80.9 % (36.0-66.0); PLATELET COUNT, AUTOMATED 419 10^3/uL (150-450); RED BLOOD COUNT 4.16 10^6/uL (4.00-5.40); WHITE BLOOD COUNT 6.5 10^3/uL (4.0-10.0)
[2022-06-22 13:38] LABS: ALBUMIN 3.5 G/DL (3.2-5.2); ALKALINE PHOSPHATASE 78 U/L (46-116); ALT/SGPT 25 U/L (7.0-40); AST/SGOT 20 U/L (<34); BILIRUBIN,TOTAL 0.5 MG/DL (0.3-1.2); BLOOD UREA NITROGEN 12 MG/DL (9-23); C REACTIVE PROTEIN QUANTITATIV < 0.40 MG/DL (<1.0); CALCIUM LEVEL 9.1 MG/DL (8.5-10.1); CARBON DIOXIDE LEVEL 29 MMOL/L (20-31); CHLORIDE LEVEL 104 MMOL/L (98-107); CREATININE FOR GFR 0.54 MG/DL (0.55-1.30); GLOMERULAR FILTRATION RATE > 60.0 (>60); GLUCOSE, FASTING 107 MG/DL (60-100); POTASSIUM SERUM 4.7 MMOL/L (3.5-5.1); SODIUM LEVEL 138 MMOL/L (136-145); TOTAL PROTEIN 7.3 G/DL (5.7-8.2)
[2022-06-22 13:39] LABS: ERYTHROCYTE SEDIMENTATION RATE 47 mm/hr (0-20)
== END ==
LOC: M PLALAB 12:10
PROVIDERS: ATTEND Internal Medicine Gastroenterology
DX: K50.00 Crohn's disease of small intestine without complications (principal)

== ENCOUNTER → 2022-06-22 | Outpatient (CLI) | payer BC ==
[2022-06-22 13:14] LABS: BASO % 0.6 % (0.0-1.0); EOS # 0.1 10^3/uL (0.0-0.5); EOS % 1.4 % (0.0-3.0); HEMATOCRIT 31.9 % (36.0-47.0); LYMPH # 0.9 10^3/uL (1.5-5.0); LYMPH % 13.8 % (24.0-44.0); MEAN CORPUSCULAR HEMOGLOBIN 21.3 pg (27.0-33.0); MEAN CORPUSCULAR HGB CONC 28.2 g/dl (32.0-36.5); MEAN CORPUSCULAR VOLUME 75.4 fl (80.0-96.0); MONO # 0.3 10^3/uL (0.0-0.8); MONO % 4.1 % (2.0-8.0); NEUTROPHILS # 5.1 10^3/uL (1.5-8.5); NEUTROPHILS % 79.6 % (36.0-66.0); PLATELET COUNT, AUTOMATED 415 10^3/uL (150-450); RED BLOOD COUNT 4.23 10^6/uL (4.00-5.40); WHITE BLOOD COUNT 6.4 10^3/uL (4.0-10.0)
[2022-06-22 13:44] LABS: ALBUMIN 3.5 G/DL (3.2-5.2); ALKALINE PHOSPHATASE 76 U/L (46-116); ALT/SGPT 25 U/L (7.0-40); AST/SGOT 19 U/L (<34); BILIRUBIN,TOTAL 0.5 MG/DL (0.3-1.2); BLOOD UREA NITROGEN 11 MG/DL (9-23); CALCIUM LEVEL 9.2 MG/DL (8.5-10.1); CARBON DIOXIDE LEVEL 28 MMOL/L (20-31); CHLORIDE LEVEL 104 MMOL/L (98-107); CHOLESTEROL LEVEL 156 MG/DL (<200); CHOLESTEROL RISK RATIO 1.89 (<5); CREATININE FOR GFR 0.57 MG/DL (0.55-1.30); FREE T4 0.97 NG/DL (0.89-1.76); GLOMERULAR FILTRATION RATE > 60.0 (>60); GLUCOSE, FASTING 108 MG/DL (60-100); HDL CHOLESTEROL 82.3 MG/DL (>40); LDL CHOLESTEROL 60.9 MG/DL (<100); NON-HDL-C 73.7 MG/DL; POTASSIUM SERUM 5.1 MMOL/L (3.5-5.1); PTH INTACT 43.8 PG/ML (18.5-88.0); SODIUM LEVEL 136 MMOL/L (136-145); THYROID STIMULATING HORMONE 2.965 uIU/ML (0.55-4.78); TOTAL 25(OH) VITAMIN D 67.7 NG/ML (20.0-100.0); TOTAL PROTEIN 7.2 G/DL (5.7-8.2); TRIGLYCERIDES LEVEL 64 MG/DL (<150)
== END ==
LOC: M PLALAB 12:12
PROVIDERS: ATTEND Physician Assistant Medical
DX: E55.9 Vitamin D deficiency, unspecified (principal); F41.9 Anxiety disorder, unspecified; I10 Essential (primary) hypertension; Z13.220 Encounter for screening for lipoid disorders

== ENCOUNTER 2022-06-23 08:08 | Outpatient (CLI) | payer BC ==
[~2022-06-23] VITALS: Ht 165.1 cm; Wt 81.8 kg
[~2022-06-23 08:08] MED LIST changes: +VEDOLIZUMAB 300 MG in NS 250 ML IV ONE
[2022-06-23 08:30] VITALS: BP 125/88
[2022-06-23 09:20] VITALS: BP 146/91
== END 2022-06-23 09:20 | disposition home or self-care (01) ==
LOC: M INFU 08:08
PROVIDERS: ATTEND Internal Medicine Gastroenterology
DX: K50.90 Crohn's disease, unspecified, without complications (principal)

== ENCOUNTER 2022-08-04 12:35 | Outpatient (CLI) | payer BC, OTHER ==
[~2022-08-04] VITALS: Ht 165.1 cm; Wt 81.8 kg
[2022-08-04 12:35] VITALS: BP 135/77
[2022-08-04 13:39] VITALS: BP 130/83
== END 2022-08-04 13:45 | disposition home or self-care (01) ==
LOC: M INFU 12:35
PROVIDERS: ATTEND Internal Medicine Gastroenterology
DX: K50.90 Crohn's disease, unspecified, without complications (principal)
CPT/HCPCS: 96365; J3380

== ENCOUNTER 2022-09-15 12:10 | Outpatient (CLI) | payer BC, OTHER ==
[~2022-09-15] VITALS: Ht 165.1 cm; Wt 81.8 kg
[2022-09-15 12:10] VITALS: BP 135/76; O2SAT 100
[2022-09-15 13:30] VITALS: BP 131/90; O2SAT 100
== END 2022-09-15 13:30 ==
LOC: M INFU 12:10
PROVIDERS: ATTEND Internal Medicine Gastroenterology
DX: K50.90 Crohn's disease, unspecified, without complications (principal)
CPT/HCPCS: 96365; J3380

== ENCOUNTER 2022-11-20 13:50 | Outpatient (CLI) | payer MEDICAID, OTHER ==
[~2022-11-20] VITALS: Ht 165.1 cm; Wt 84.0 kg
[~2022-11-20 13:50] MED LIST changes: -VEDOLIZUMAB 300 MG in NS 250 ML IV ONE
[2022-11-20] MEDS ORDERED: VEDOLIZUMAB 300 MG in NS 250 ML IV ONE (14:00)
[2022-11-20 14:08] VITALS: BP 155/79; O2SAT 99
[2022-11-20 15:05] VITALS: BP 154/116; O2SAT 100
== END 2022-11-20 15:05 | disposition home or self-care (01) ==
LOC: M INFU 13:50
PROVIDERS: ATTEND Internal Medicine Gastroenterology
DX: K50.90 Crohn's disease, unspecified, without complications (principal)
CPT/HCPCS: 96365; J3380

== ENCOUNTER 2023-01-01 12:00 | Outpatient (CLI) | payer OTHER ==
[~2023-01-01] VITALS: Ht 165.1 cm; Wt 80.0 kg
[2023-01-01 12:00] VITALS: BP 139/96; O2SAT 100
[~2023-01-01 12:00] MED LIST changes: +VEDOLIZUMAB 300 MG in NS 250 ML IV ONE
[2023-01-01 13:15] VITALS: BP 158/88; O2SAT 99
[2023-01-01 13:18] VITALS: BP 158/88; TEMP 36.7; O2SAT 99
== END 2023-01-01 13:20 | disposition home or self-care (01) ==
LOC: M INFU 12:00
PROVIDERS: ATTEND Internal Medicine Gastroenterology
DX: K50.90 Crohn's disease, unspecified, without complications (principal)
CPT/HCPCS: 96365; J3380

== ENCOUNTER 2023-03-30 15:05 | Outpatient (CLI) | payer OTHER ==
[~2023-03-30] VITALS: Ht 165.1 cm; Wt 79.5 kg
[2023-03-30 15:25] VITALS: BP 152/92; O2SAT 100
[2023-03-30 16:18] VITALS: BP 151/95; O2SAT 99
== END 2023-03-30 16:20 | disposition home or self-care (01) ==
LOC: M INFU 15:05
PROVIDERS: ATTEND Internal Medicine Gastroenterology
DX: K50.90 Crohn's disease, unspecified, without complications (principal)

== ENCOUNTER → 2023-05-04 | Outpatient (CLI) | payer OTHER ==
[~2023-05-04] MED LIST changes: -VEDOLIZUMAB 300 MG in NS 250 ML IV ONE
[2023-05-04 15:35] LABS: BASO # 0.1 10^3/uL (0.0-0.2); BASO % 0.7 % (0.0-1.0); EOS # 0.2 10^3/uL (0.0-0.5); HEMATOCRIT 37.4 % (36.0-47.0); HEMOGLOBIN 11.6 g/dl (12.0-15.5); LYMPH # 1.7 10^3/uL (1.5-5.0); LYMPH % 23.8 % (24.0-44.0); MEAN CORPUSCULAR HEMOGLOBIN 25.5 pg (27.0-33.0); MEAN CORPUSCULAR VOLUME 82.2 fl (80.0-96.0); MONO # 0.6 10^3/uL (0.0-0.8); MONO % 7.9 % (2.0-8.0); NEUTROPHILS # 4.7 10^3/uL (1.5-8.5); NEUTROPHILS % 64.3 % (36.0-66.0); PLATELET COUNT, AUTOMATED 445 10^3/uL (150-450); RED BLOOD COUNT 4.55 10^6/uL (4.00-5.40); WHITE BLOOD COUNT 7.3 10^3/uL (4.0-10.0)
[2023-05-04 15:56] LABS: URIC ACID 3.6 MG/DL (3.1-7.8)
[2023-05-04 15:57] LABS: ERYTHROCYTE SEDIMENTATION RATE 67 mm/hr (0-20)
[2023-05-04 15:59] LABS: ALBUMIN 3.4 G/DL (3.2-5.2); ALKALINE PHOSPHATASE 90 U/L (46-116); ALT/SGPT 25 U/L (7.0-40); AST/SGOT 18 U/L (<34); BILIRUBIN,TOTAL 0.5 MG/DL (0.3-1.2); BLOOD UREA NITROGEN 9 MG/DL (9-23); CALCIUM LEVEL 9.1 MG/DL (8.5-10.1); CARBON DIOXIDE LEVEL 28 MMOL/L (20-31); CHLORIDE LEVEL 104 MMOL/L (98-107); CREATININE FOR GFR 0.59 MG/DL (0.55-1.30); GLOMERULAR FILTRATION RATE > 60.0 (>60); GLUCOSE, FASTING 82 MG/DL (60-100); POTASSIUM SERUM 4.3 MMOL/L (3.5-5.1); SODIUM LEVEL 138 MMOL/L (136-145); TOTAL PROTEIN 7.4 G/DL (5.7-8.2)
== END ==
LOC: M PLAIMG 14:07
PROVIDERS: ATTEND Physician Assistant Medical
DX: R60.0 Localized edema (principal)

== ENCOUNTER 2023-05-11 12:09 | Outpatient (CLI) | payer OTHER ==
[2023-05-11 12:32] VITALS: BP 152/80; O2SAT 100
[2023-05-11] MEDS: VEDOLIZUMAB 300 MG in NS 250 ML IV ONE (12:47)
[2023-05-11 13:30] VITALS: BP 148/88; O2SAT 99
== END 2023-05-11 13:30 ==
LOC: M INFU 12:09
PROVIDERS: ATTEND Internal Medicine Gastroenterology
DX: K50.90 Crohn's disease, unspecified, without complications (principal)
CPT/HCPCS: 96365; J3380

== ENCOUNTER 2023-06-25 08:13 | Outpatient (CLI) | payer OTHER ==
[~2023-06-25] VITALS: Ht 165.1 cm; Wt 80.0 kg
[2023-06-25] MEDS: VEDOLIZUMAB 300 MG in NS 250 ML IV ONE (16:38)
[2023-06-25 16:40] VITALS: BP 134/100; TEMP 98.1; O2SAT 98
[2023-06-25 17:18] VITALS: BP 143/99; TEMP 98.2; O2SAT 99
== END 2023-06-25 17:20 ==
LOC: M INFU 08:13
PROVIDERS: ATTEND Internal Medicine Gastroenterology
DX: K50.90 Crohn's disease, unspecified, without complications (principal)
CPT/HCPCS: 96365; J3380

== ENCOUNTER → 2023-07-23 | Outpatient (CLI) | payer OTHER | LOC: M RAD 06:42 | PROVIDERS: ATTEND Physician Assistant Medical | DX: M25.572 Pain in left ankle and joints of left foot (principal) ==

== ENCOUNTER 2023-08-09 08:41 | Outpatient (CLI) | payer OTHER ==
[2023-08-09] MEDS: VEDOLIZUMAB 300 MG in NS 250 ML IV ONE (13:33)
[2023-08-09 14:10] VITALS: BP 138/79; O2SAT 98
== END 2023-08-09 14:15 | disposition home or self-care (01) ==
LOC: M INFU 08:41
PROVIDERS: ATTEND Internal Medicine Gastroenterology
DX: K50.90 Crohn's disease, unspecified, without complications (principal)
CPT/HCPCS: 96365; J3380

== ENCOUNTER → 2023-08-23 | Outpatient (CLI) | payer OTHER ==
[~2023-08-23] MED LIST changes: +DICL20GE TP; +METH-1165 PO; +NAPR-885 PO; +PANT40TA29 PO; +PEPC1TAB5 PO
[2023-08-23 13:32] LABS: BASO % 0.8 % (0.0-1.0); EOS # 0.1 10^3/uL (0.0-0.5); EOS % 1.4 % (0.0-3.0); HEMATOCRIT 36.2 % (36.0-47.0); LYMPH # 1.3 10^3/uL (1.5-5.0); LYMPH % 25.3 % (24.0-44.0); MEAN CORPUSCULAR HEMOGLOBIN 28.2 pg (27.0-33.0); MEAN CORPUSCULAR HGB CONC 33.1 g/dl (32.0-36.5); MEAN CORPUSCULAR VOLUME 85.2 fl (80.0-96.0); MONO # 0.6 10^3/uL (0.0-0.8); MONO % 12.7 % (2.0-8.0); NEUTROPHILS # 2.9 10^3/uL (1.5-8.5); NEUTROPHILS % 59.2 % (36.0-66.0); PLATELET COUNT, AUTOMATED 338 10^3/uL (150-450); RED BLOOD COUNT 4.25 10^6/uL (4.00-5.40)
[2023-08-23 13:42] LABS: ERYTHROCYTE SEDIMENTATION RATE 62 mm/hr (0-20)
== END ==
LOC: M LAB 12:00
PROVIDERS: ATTEND Physician Assistant Medical
DX: M65.9 Synovitis and tenosynovitis, unspecified (principal)

== ENCOUNTER → 2023-08-23 | Outpatient (CLI) | payer OTHER ==
[2023-08-23 13:30] LABS: BASO # 0.1 10^3/uL (0.0-0.2); EOS # 0.1 10^3/uL (0.0-0.5); EOS % 1.4 % (0.0-3.0); HEMATOCRIT 37.5 % (36.0-47.0); HEMOGLOBIN 12.2 g/dl (12.0-15.5); LYMPH # 1.2 10^3/uL (1.5-5.0); LYMPH % 24.6 % (24.0-44.0); MEAN CORPUSCULAR HEMOGLOBIN 27.5 pg (27.0-33.0); MEAN CORPUSCULAR HGB CONC 32.5 g/dl (32.0-36.5); MEAN CORPUSCULAR VOLUME 84.5 fl (80.0-96.0); MONO # 0.7 10^3/uL (0.0-0.8); MONO % 13.3 % (2.0-8.0); NEUTROPHILS # 2.9 10^3/uL (1.5-8.5); NEUTROPHILS % 59.3 % (36.0-66.0); PLATELET COUNT, AUTOMATED 336 10^3/uL (150-450); RED BLOOD COUNT 4.44 10^6/uL (4.00-5.40)
[2023-08-23 13:42] LABS: ERYTHROCYTE SEDIMENTATION RATE 67 mm/hr (0-20)
[2023-08-23 13:55] LABS: URIC ACID 3.9 MG/DL (3.1-7.8)
[2023-08-23 13:58] LABS: IRON (FE) 31 UG/DL (50-170); RHEUMATOID FACTOR QUANT 8.9 IU/ML (<14)
[2023-08-23 13:59] LABS: ALBUMIN 3.2 G/DL (3.2-5.2); ALKALINE PHOSPHATASE 108 U/L (46-116); ALT/SGPT 33 U/L (7.0-40); AST/SGOT 16 U/L (<34); BILIRUBIN,TOTAL 0.9 MG/DL (0.3-1.2); BLOOD UREA NITROGEN 6 MG/DL (9-23); CARBON DIOXIDE LEVEL 27 MMOL/L (20-31); CHLORIDE LEVEL 102 MMOL/L (98-107); CREATININE FOR GFR 0.66 MG/DL (0.55-1.30); GLOMERULAR FILTRATION RATE > 60.0 (>58); GLUCOSE, FASTING 95 MG/DL (60-100); PERCENT SATURATION 7.9 % (13.2-45.0); SODIUM LEVEL 136 MMOL/L (136-145); TOTAL IRON BINDING CAPACITY 394 UG/DL (250-425); VITAMIN B12 LEVEL 382 PG/ML (211-911)
[2023-08-30 20:07] LABS: ANA (HEP2) Negative (.); ANCA-ATYPICAL <1:20 titer (Neg:<1:20); CYTOPLASMIC NEUTROP AB ANCA-C <1:20 titer (Neg:<1:20); HLA-B27 Positive (.); PERINUCLEAR AB ANCA-P <1:20 titer (Neg:<1:20)
== END ==
LOC: M LAB 11:58
PROVIDERS: ATTEND Internal Medicine Gastroenterology
DX: M45.9 Ankylosing spondylitis of unspecified sites in spine (principal); K50.00 Crohn's disease of small intestine without complications; Z98.0 Intestinal bypass and anastomosis status

== ENCOUNTER 2023-08-29 08:23 | Emergency (ER) | payer OTHER ==
[~2023-08-29] VITALS: Ht 165.1 cm; Wt 82.4 kg
[~2023-08-29 08:23] MED LIST changes: -DICL20GE TP; -METH-1165 PO; -NAPR-885 PO; -PANT40TA29 PO; -PEPC1TAB5 PO
[2023-08-29] MEDS ORDERED: PANT40TA29 PO (08:30)
[2023-08-29] MEDS: methocarbamoL 750 MG TAB PO ONE (09:08)
[2023-08-29] MEDS: KETOROLAC 30 MG/ML 1ML VIAL IM ONE (09:08)
[2023-08-29] MEDS ORDERED: METH-1165 PO (09:37)
[2023-08-29] MEDS ORDERED: PEPC1TAB5 PO (09:37)
[2023-08-29] MEDS ORDERED: NAPR-885 PO (09:37)
[2023-08-29] MEDS ORDERED: DICL20GE TP (09:37)
[2023-08-29 09:49] VITALS: BP 143/93; TEMP 97.5; O2SAT 100
== END 2023-08-29 09:55 | disposition home or self-care (01) ==
LOC: M ED 08:23
DX: M79.622 Pain in left upper arm (principal); M62.838 Other muscle spasm; X50.0XXA Overexertion from strenuous movement or load, initial encounter; I10 Essential (primary) hypertension; K50.90 Crohn's disease, unspecified, without complications; F41.9 Anxiety disorder, unspecified; Y92.009 Unspecified place in unspecified non-institutional (private) residence as the place of occurrence of the external cause; Y93.9 Activity, unspecified; Y99.9 Unspecified external cause status; Z79.84 Long term (current) use of oral hypoglycemic drugs; Z79.899 Other long term (current) drug therapy; Z79.1 Long term (current) use of non-steroidal anti-inflammatories (NSAID)
CPT/HCPCS: 72040; 73030; 96372; 99283; J1885

== ENCOUNTER 2023-09-20 09:30 | Outpatient (CLI) | payer OTHER ==
[~2023-09-20] VITALS: Ht 165.1 cm; Wt 81.8 kg
[2023-09-20 09:30] VITALS: BP 114/76; O2SAT 94
[~2023-09-20 09:30] MED LIST changes: +DICL20GE TP; +METH-1165 PO; +NAPR-885 PO; +PANT40TA29 PO; +PEPC1TAB5 PO
[2023-09-20] MEDS: VEDOLIZUMAB 300 MG in NS 250 ML IV ONE (09:37)
== END 2023-09-20 10:20 ==
LOC: M INFU 09:30
PROVIDERS: ATTEND Internal Medicine Gastroenterology
DX: K50.90 Crohn's disease, unspecified, without complications (principal)
CPT/HCPCS: 96365; J3380

== ENCOUNTER → 2023-11-08 | Outpatient (REF) | LOC: M EMP 08:31 | PROVIDERS: ATTEND Family Medicine | DX: Z20.822 Contact with and (suspected) exposure to COVID-19 (principal) ==

== ENCOUNTER 2023-11-12 15:22 | Outpatient (CLI) | payer OTHER ==
[~2023-11-12] VITALS: Ht 165.1 cm; Wt 80.9 kg
[2023-11-12 16:30] VITALS: BP 149/97; O2SAT 99
[2023-11-12] MEDS: VEDOLIZUMAB 300 MG in NS 250 ML IV ONE (16:37)
[2023-11-12 17:15] VITALS: BP 137/94; TEMP 36.6; O2SAT 97
== END 2023-11-12 17:15 ==
LOC: M INFU 15:22
PROVIDERS: ATTEND Internal Medicine Gastroenterology
DX: K50.90 Crohn's disease, unspecified, without complications (principal)
CPT/HCPCS: 96365; J3380

== ENCOUNTER → 2023-11-19 | Outpatient (CLI) | payer OTHER ==
[2023-11-19 18:10] LABS: BASO # 0.1 10^3/uL (0.0-0.2); BASO % 0.7 % (0.0-1.0); EOS # 0.1 10^3/uL (0.0-0.5); EOS % 1.4 % (0.0-3.0); HEMATOCRIT 39.3 % (36.0-47.0); HEMOGLOBIN 12.8 g/dl (12.0-15.5); LYMPH # 2.7 10^3/uL (1.5-5.0); LYMPH % 38.7 % (24.0-44.0); MEAN CORPUSCULAR HEMOGLOBIN 28.2 pg (27.0-33.0); MEAN CORPUSCULAR HGB CONC 32.6 g/dl (32.0-36.5); MEAN CORPUSCULAR VOLUME 86.6 fl (80.0-96.0); MONO # 0.6 10^3/uL (0.0-0.8); MONO % 8.9 % (2.0-8.0); NEUTROPHILS # 3.5 10^3/uL (1.5-8.5); PLATELET COUNT, AUTOMATED 364 10^3/uL (150-450); RED BLOOD COUNT 4.54 10^6/uL (4.00-5.40); WHITE BLOOD COUNT 6.9 10^3/uL (4.0-10.0)
[2023-11-19 18:39] LABS: ERYTHROCYTE SEDIMENTATION RATE 43 mm/hr (0-20)
[2023-11-19 18:40] LABS: URIC ACID 3.1 MG/DL (3.1-7.8)
[2023-11-19 18:43] LABS: ALBUMIN 3.6 G/DL (3.2-5.2); ALKALINE PHOSPHATASE 97 U/L (46-116); ALT/SGPT 23 U/L (7.0-40); AST/SGOT 17 U/L (<34); BILIRUBIN,TOTAL 0.6 MG/DL (0.3-1.2); BLOOD UREA NITROGEN 8 MG/DL (9-23); CALCIUM LEVEL 9.3 MG/DL (8.5-10.1); CARBON DIOXIDE LEVEL 26 MMOL/L (20-31); CHLORIDE LEVEL 104 MMOL/L (98-107); CREATININE FOR GFR 0.59 MG/DL (0.55-1.30); FREE T4 1.11 NG/DL (0.89-1.76); GLOMERULAR FILTRATION RATE > 60.0 (>58); GLUCOSE, FASTING 87 MG/DL (60-100); IRON (FE) 36 UG/DL (50-170); PERCENT SATURATION 8.5 % (13.2-45.0); POTASSIUM SERUM 4.5 MMOL/L (3.5-5.1); RHEUMATOID FACTOR QUANT 9.2 IU/ML (<14); SODIUM LEVEL 136 MMOL/L (136-145); THYROID STIMULATING HORMONE 3.179 uIU/ML (0.55-4.78); TOTAL IRON BINDING CAPACITY 423 UG/DL (250-425); TOTAL PROTEIN 7.9 G/DL (5.7-8.2)
[2023-11-21 15:22] LABS: ANA SCREEN, IFA NEGATIVE (NEGATIVE)
== END ==
LOC: M LAB 16:53
PROVIDERS: ATTEND Nurse Practitioner Family
DX: M45.7 Ankylosing spondylitis of lumbosacral region (principal); M25.40 Effusion, unspecified joint; K50.00 Crohn's disease of small intestine without complications; E55.9 Vitamin D deficiency, unspecified

== ENCOUNTER → 2023-11-23 | Outpatient (CLI) | payer OTHER | LOC: M WHC 16:34 | PROVIDERS: ATTEND Nurse Practitioner Family | DX: Z12.31 Encounter for screening mammogram for malignant neoplasm of breast (principal) ==

== ENCOUNTER → 2023-11-30 | Outpatient (CLI) | payer OTHER ==
[2023-12-05 02:58] LABS: IgG P18 AB NON-REACTIVE; IgG P23 AB NON-REACTIVE; IgG P28 AB NON-REACTIVE; IgG P30 AB NON-REACTIVE; IgG P39 AB NON-REACTIVE; IgG P41 AB REACTIVE; IgG P45 AB NON-REACTIVE; IgG P58 AB REACTIVE; IgG P66 AB NON-REACTIVE; IgG P93 AB NON-REACTIVE; IgM P23 AB REACTIVE; IgM P39 AB NON-REACTIVE; IgM P41 AB NON-REACTIVE; LYME IgG WB INTERPRETATION NEGATIVE (NEGATIVE); LYME IgM WB INTERPRETATION NEGATIVE (NEGATIVE)
== END ==
LOC: M LAB 16:14
PROVIDERS: ATTEND Nurse Practitioner Family
DX: A69.20 Lyme disease, unspecified (principal)

== ENCOUNTER 2023-12-31 16:30 | Outpatient (CLI) | payer OTHER ==
[~2023-12-31] VITALS: Ht 165.1 cm; Wt 84.1 kg
[2023-12-31 16:30] VITALS: BP 162/104; O2SAT 98
[2023-12-31] MEDS: VEDOLIZUMAB 300 MG in NS 250 ML IV ONE (16:33)
[2023-12-31 17:05] VITALS: BP 160/90; O2SAT 99
== END 2023-12-31 17:10 ==
LOC: M INFU 16:30
PROVIDERS: ATTEND Internal Medicine Gastroenterology
DX: K50.90 Crohn's disease, unspecified, without complications (principal)
CPT/HCPCS: 96365; J3380

== ENCOUNTER → 2024-01-11 | Outpatient (CLI) | payer OTHER ==
[2024-01-11 13:07] LABS: BASO # 0.1 10^3/uL (0.0-0.2); BASO % 0.8 % (0.0-1.0); EOS # 0.1 10^3/uL (0.0-0.5); EOS % 0.8 % (0.0-3.0); HEMATOCRIT 42.4 % (36.0-47.0); HEMOGLOBIN 14.2 g/dl (12.0-15.5); LYMPH # 2.1 10^3/uL (1.5-5.0); LYMPH % 33.7 % (24.0-44.0); MEAN CORPUSCULAR HEMOGLOBIN 29.4 pg (27.0-33.0); MEAN CORPUSCULAR HGB CONC 33.5 g/dl (32.0-36.5); MEAN CORPUSCULAR VOLUME 87.8 fl (80.0-96.0); MONO # 0.7 10^3/uL (0.0-0.8); MONO % 10.7 % (2.0-8.0); NEUTROPHILS # 3.3 10^3/uL (1.5-8.5); NEUTROPHILS % 53.5 % (36.0-66.0); PLATELET COUNT, AUTOMATED 346 10^3/uL (150-450); RED BLOOD COUNT 4.83 10^6/uL (4.00-5.40); WHITE BLOOD COUNT 6.2 10^3/uL (4.0-10.0)
[2024-01-11 13:30] LABS: C REACTIVE PROTEIN QUANTITATIV < 0.40 MG/DL (<1.0)
[2024-01-11 13:32] LABS: ALBUMIN 3.7 G/DL (3.2-5.2); ALKALINE PHOSPHATASE 88 U/L (46-116); ALT/SGPT 32 U/L (7.0-40); AST/SGOT 27 U/L (<34); BILIRUBIN,TOTAL 0.9 MG/DL (0.3-1.2); BLOOD UREA NITROGEN 6 MG/DL (9-23); CALCIUM LEVEL 9.7 MG/DL (8.5-10.1); CARBON DIOXIDE LEVEL 29 MMOL/L (20-31); CHLORIDE LEVEL 105 MMOL/L (98-107); CREATININE FOR GFR 0.63 MG/DL (0.55-1.30); GLOMERULAR FILTRATION RATE > 60.0 (>58); GLUCOSE, FASTING 92 MG/DL (60-100); IRON (FE) 96 UG/DL (50-170); PERCENT SATURATION 23.4 % (13.2-45.0); POTASSIUM SERUM 4.6 MMOL/L (3.5-5.1); SODIUM LEVEL 134 MMOL/L (136-145); TOTAL IRON BINDING CAPACITY 411 UG/DL (250-425)
[2024-01-11 13:34] LABS: ERYTHROCYTE SEDIMENTATION RATE 31 mm/hr (0-20)
[2024-01-11 13:35] LABS: FERRITIN 13.2 NG/ML (7.3-270.7)
== END ==
LOC: M LAB 11:51
PROVIDERS: ATTEND Nurse Practitioner Family
DX: D50.9 Iron deficiency anemia, unspecified (principal); F41.9 Anxiety disorder, unspecified; E55.9 Vitamin D deficiency, unspecified; I10 Essential (primary) hypertension; K50.918 Crohn's disease, unspecified, with other complication; A69.20 Lyme disease, unspecified

== ENCOUNTER → 2024-01-16 | Outpatient (REF) | payer OTHER ==
[2024-01-21 14:57] LABS: HPV APTIMA Detected (Not Detected)
== END ==
LOC: M SFHCWAGY 12:57
PROVIDERS: ATTEND Nurse Practitioner Family
DX: Z12.4 Encounter for screening for malignant neoplasm of cervix (principal); R87.612 Low grade squamous intraepithelial lesion on cytologic smear of cervix (LGSIL)

== ENCOUNTER → 2024-01-25 | Outpatient (REF) | payer OTHER | LOC: M PLALAB 15:13 | PROVIDERS: ATTEND Advanced Practice Midwife | DX: R87.612 Low grade squamous intraepithelial lesion on cytologic smear of cervix (LGSIL) (principal); R87.810 Cervical high risk human papillomavirus (HPV) DNA test positive; B00.9 Herpesviral infection, unspecified ==

== ENCOUNTER 2024-02-14 12:18 | Outpatient (CLI) | payer OTHER ==
[~2024-02-14] VITALS: Ht 165.1 cm; Wt 81.8 kg
[2024-02-14] MEDS: VEDOLIZUMAB 300 MG in NS 250 ML IV ONE (13:18)
[2024-02-14 13:58] VITALS: BP 124/84; O2SAT 98
== END 2024-02-14 14:00 ==
LOC: M INFU 12:18
PROVIDERS: ATTEND Internal Medicine Gastroenterology
DX: K50.90 Crohn's disease, unspecified, without complications (principal)

== ENCOUNTER → 2024-03-09 | Outpatient (REF) | payer OTHER | LOC: M LAB REF 09:52 | PROVIDERS: ATTEND Registered Nurse | DX: N39.0 Urinary tract infection, site not specified (principal) ==

== ENCOUNTER → 2024-03-13 | Outpatient (CLI) | payer OTHER ==
[2024-03-13 14:22] LABS: BASO % 0.6 % (0.0-1.0); EOS % 0.2 % (0.0-3.0); HEMATOCRIT 38.8 % (36.0-47.0); HEMOGLOBIN 12.8 g/dl (12.0-15.5); LYMPH # 1.8 10^3/uL (1.5-5.0); LYMPH % 27.8 % (24.0-44.0); MEAN CORPUSCULAR HEMOGLOBIN 30.5 pg (27.0-33.0); MEAN CORPUSCULAR VOLUME 92.4 fl (80.0-96.0); MONO # 0.7 10^3/uL (0.0-0.8); MONO % 10.9 % (2.0-8.0); NEUTROPHILS # 3.9 10^3/uL (1.5-8.5); NEUTROPHILS % 60.3 % (36.0-66.0); PLATELET COUNT, AUTOMATED 310 10^3/uL (150-450); WHITE BLOOD COUNT 6.4 10^3/uL (4.0-10.0)
[2024-03-13 14:29] LABS: ERYTHROCYTE SEDIMENTATION RATE 42 mm/hr (0-20)
[2024-03-13 14:55] LABS: C REACTIVE PROTEIN QUANTITATIV 1.28 MG/DL (<1.0)
[2024-03-13 14:56] LABS: ALBUMIN 3.2 G/DL (3.2-5.2); ALKALINE PHOSPHATASE 88 U/L (35-104); ALT/SGPT 23 U/L (7.0-40); AST/SGOT 21 U/L (<34); BILIRUBIN,TOTAL 0.6 MG/DL (0.3-1.2); BLOOD UREA NITROGEN 19 MG/DL (9-23); CALCIUM LEVEL 9.8 MG/DL (8.5-10.1); CARBON DIOXIDE LEVEL 29 MMOL/L (20-31); CHLORIDE LEVEL 102 MMOL/L (98-107); CREATININE FOR GFR 0.62 MG/DL (0.55-1.30); GLOMERULAR FILTRATION RATE > 60.0 (>58); GLUCOSE, FASTING 85 MG/DL (60-100); POTASSIUM SERUM 4.6 MMOL/L (3.5-5.1); SODIUM LEVEL 137 MMOL/L (136-145); TOTAL PROTEIN 7.7 G/DL (5.7-8.2)
[2024-03-13 15:15] LABS: HEPATITIS B SURFACE ANTIGEN NEGATIVE (NEGATIVE)
== END ==
LOC: M LAB 13:38
PROVIDERS: ATTEND Internal Medicine Rheumatology
DX: M45.0 Ankylosing spondylitis of multiple sites in spine (principal); K50.012 Crohn's disease of small intestine with intestinal obstruction; Z79.60 Long term (current) use of unspecified immunomodulators and immunosuppressants

== ENCOUNTER → 2024-03-17 | Outpatient (CLI) | payer OTHER | LOC: M LAB 11:58 | PROVIDERS: ATTEND Internal Medicine Rheumatology | DX: M45.0 Ankylosing spondylitis of multiple sites in spine (principal); K50.012 Crohn's disease of small intestine with intestinal obstruction; Z79.60 Long term (current) use of unspecified immunomodulators and immunosuppressants ==

== ENCOUNTER → 2024-03-24 | Outpatient (CLI) | payer OTHER ==
[2024-03-24 09:17] LABS: CHOLESTEROL LEVEL 164 MG/DL (<200); CHOLESTEROL RISK RATIO 2.25 (<5); HCG, SERUM QUALITATIVE NEGATIVE (NEGATIVE); HDL CHOLESTEROL 72.8 MG/DL (>40); LDL CHOLESTEROL 58.8 MG/DL (<100); NON-HDL-C 91.2 MG/DL; TRIGLYCERIDES LEVEL 162 MG/DL (<150)
== END ==
LOC: M LAB 08:10
PROVIDERS: ATTEND Internal Medicine Gastroenterology
DX: K50.00 Crohn's disease of small intestine without complications (principal); M45.9 Ankylosing spondylitis of unspecified sites in spine

== ENCOUNTER → 2024-04-03 | Outpatient (REF) | payer OTHER | LOC: M LAB REF 13:11 | PROVIDERS: ATTEND Physician Assistant Medical | DX: K50.00 Crohn's disease of small intestine without complications (principal); R19.7 Diarrhea, unspecified ==

== ENCOUNTER → 2024-07-08 | Outpatient (CLI) | payer OTHER ==
[2024-07-08 10:37] LABS: BASO % 0.5 % (0.0-1.0); EOS # 0.1 10^3/uL (0.0-0.5); EOS % 0.9 % (0.0-3.0); HEMATOCRIT 37.5 % (36.0-47.0); HEMOGLOBIN 12.7 g/dl (12.0-15.5); LYMPH # 2.9 10^3/uL (1.5-5.0); LYMPH % 44.4 % (24.0-44.0); MEAN CORPUSCULAR HEMOGLOBIN 32.2 pg (27.0-33.0); MEAN CORPUSCULAR HGB CONC 33.9 g/dl (32.0-36.5); MEAN CORPUSCULAR VOLUME 95.2 fl (80.0-96.0); MONO # 0.7 10^3/uL (0.0-0.8); MONO % 11.4 % (2.0-8.0); NEUTROPHILS # 2.7 10^3/uL (1.5-8.5); NEUTROPHILS % 42.3 % (36.0-66.0); PLATELET COUNT, AUTOMATED 368 10^3/uL (150-450); RED BLOOD COUNT 3.94 10^6/uL (4.00-5.40); WHITE BLOOD COUNT 6.5 10^3/uL (4.0-10.0)
[2024-07-08 10:51] LABS: ERYTHROCYTE SEDIMENTATION RATE 8 mm/hr (0-20)
[2024-07-08 10:59] LABS: C REACTIVE PROTEIN QUANTITATIV < 0.50 MG/DL (<1.0)
[2024-07-08 11:00] LABS: ALBUMIN 3.4 G/DL (3.2-5.2); ALKALINE PHOSPHATASE 71 U/L (35-104); ALT/SGPT 37 U/L (7.0-40); AST/SGOT 22 U/L (<34); BILIRUBIN,TOTAL 0.8 MG/DL (0.3-1.2); BLOOD UREA NITROGEN 14 MG/DL (9-23); CALCIUM LEVEL 8.9 MG/DL (8.5-10.1); CARBON DIOXIDE LEVEL 24 MMOL/L (20-31); CHLORIDE LEVEL 109 MMOL/L (98-107); CREATININE FOR GFR 0.64 MG/DL (0.55-1.30); GLOMERULAR FILTRATION RATE > 60.0 (>58); GLUCOSE, FASTING 83 MG/DL (60-100); POTASSIUM SERUM 4.8 MMOL/L (3.5-5.1); SODIUM LEVEL 139 MMOL/L (136-145); TOTAL PROTEIN 7.3 G/DL (5.7-8.2)
[2024-07-08 13:54] LABS: CLOSTRIDIUM DIFFICILE PCR NEGATIVE (NEGATIVE)
== END ==
LOC: M LAB 09:35
PROVIDERS: ATTEND Internal Medicine Gastroenterology
DX: K50.00 Crohn's disease of small intestine without complications (principal); M45.9 Ankylosing spondylitis of unspecified sites in spine

== ENCOUNTER → 2024-08-05 | Outpatient (CLI) | payer OTHER ==
[~2024-08-05] VITALS: Ht 165.1 cm; Wt 81.5 kg
[2024-08-05] VITALS (8 sets, daily range): BP systolic 103–128; BP diastolic 59–69; TEMP 98–98.8; O2SAT 97–99
[~2024-08-05] MED LIST changes: +NS (Normal Saline) 0.9% 1,000 ML IV SCH
[2024-08-05] MEDS: dexameTHASONE 20 MG IV PRIOR TO INFUSION IV ONE (08:33)
[2024-08-05] MEDS: ACETAMINOPHEN 650MG PO PRIOR TO INFUSION PO ONE (08:33)
[2024-08-05] MEDS: INFLIXIMAB BIOSIMILAR 500 MG in NS 200 ML IV ONE (10:14)
== END ==
LOC: M INFU 08:02
PROVIDERS: ATTEND Internal Medicine Gastroenterology
DX: K50.90 Crohn's disease, unspecified, without complications (principal)
CPT/HCPCS: 96375; 96413; 96415; J1100; Q5103

== ENCOUNTER → 2024-08-13 | Outpatient (CLI) | payer OTHER ==
[~2024-08-13] MED LIST changes: -NS (Normal Saline) 0.9% 1,000 ML IV SCH
[2024-08-13 13:18] LABS: BLOOD UREA NITROGEN 14 MG/DL (9-23); CALCIUM LEVEL 9.2 MG/DL (8.5-10.1); CARBON DIOXIDE LEVEL 32 MMOL/L (20-31); CHLORIDE LEVEL 92 MMOL/L (98-107); CREATININE FOR GFR 0.78 MG/DL (0.55-1.30); GLOMERULAR FILTRATION RATE > 90.0 (>58); GLUCOSE, FASTING 103 MG/DL (60-100); POTASSIUM SERUM 3.4 MMOL/L (3.5-5.1); SODIUM LEVEL 134 MMOL/L (136-145)
== END ==
LOC: M LAB 12:06
PROVIDERS: ATTEND Nurse Practitioner Family
DX: I10 Essential (primary) hypertension (principal)

== ENCOUNTER 2024-08-19 06:54 | Outpatient (CLI) | payer OTHER ==
[2024-08-19] VITALS (7 sets, daily range): BP systolic 111–133; BP diastolic 69–87; TEMP 97.3–98; O2SAT 97–99
[~2024-08-19] VITALS: Ht 165.1 cm; Wt 82.7 kg
[2024-08-19] MEDS ORDERED: NS (Normal Saline) 0.9% 1,000 ML IV SCH (07:00)
[2024-08-19] MEDS: ACETAMINOPHEN 650MG PO PRIOR TO INFUSION PO ONE (07:12)
[2024-08-19] MEDS: dexameTHASONE 20 MG IV PRIOR TO INFUSION IV ONE (07:12)
[2024-08-19] MEDS: INFLIXIMAB BIOSIMILAR 500 MG in NS 200 ML IV ONE (07:47)
== END 2024-08-19 09:50 | disposition home or self-care (01) ==
LOC: M INFU 06:54
PROVIDERS: ATTEND Internal Medicine Gastroenterology
DX: K50.90 Crohn's disease, unspecified, without complications (principal)
CPT/HCPCS: 96375; 96413; 96415; J1100; Q5103

== ENCOUNTER 2024-10-02 10:40 | Outpatient (CLI) | payer OTHER ==
[~2024-10-02] VITALS: Ht 165.1 cm; Wt 90.0 kg
[2024-10-02] MEDS ORDERED: NS (Normal Saline) 0.9% 1,000 ML IV SCH (13:00)
[2024-10-02] MEDS: ACETAMINOPHEN 650MG PO PRIOR TO INFUSION PO ONE (13:06)
[2024-10-02] MEDS: dexameTHASONE 20 MG IV PRIOR TO INFUSION IV ONE (13:06)
[2024-10-02] MEDS: INFLIXIMAB BIOSIMILAR 500 MG in NS 200 ML IV ONE (13:21)
[2024-10-02 15:17] VITALS: BP 108/73; O2SAT 99
== END 2024-10-02 15:25 ==
LOC: M INFU 10:40
PROVIDERS: ATTEND Internal Medicine Gastroenterology
DX: K50.90 Crohn's disease, unspecified, without complications (principal)
CPT/HCPCS: 96375; 96413; 96415; J1100; Q5103

== ENCOUNTER → 2024-11-19 | Outpatient (CLI) | payer OTHER ==
[2024-11-19 08:47] LABS: CALCIUM LEVEL 10.1 MG/DL (8.5-10.1); CARBON DIOXIDE LEVEL 30 MMOL/L (20-31); CHLORIDE LEVEL 97 MMOL/L (98-107); CREATININE FOR GFR 0.75 MG/DL (0.55-1.30); GLOMERULAR FILTRATION RATE > 90.0 (>58); POTASSIUM SERUM 3.9 MMOL/L (3.5-5.1); SODIUM LEVEL 139 MMOL/L (136-145)
== END ==
LOC: M LAB 07:50
PROVIDERS: ATTEND Nurse Practitioner Family
DX: E87.6 Hypokalemia (principal)

== ENCOUNTER 2024-11-27 12:13 | Outpatient (CLI) | payer OTHER ==
[~2024-11-27] VITALS: Ht 165.1 cm; Wt 85.4 kg
[2024-11-27] MEDS ORDERED: NS (Normal Saline) 0.9% 1,000 ML IV SCH (13:00)
[2024-11-27] MEDS ORDERED: dexameTHASONE 20 MG IV PRIOR TO INFUSION IV ONE (13:00)
[2024-11-27] MEDS: ACETAMINOPHEN 650MG PO PRIOR TO INFUSION PO ONE (13:00)
[2024-11-27 13:10] VITALS: BP 114/81; O2SAT 98
[2024-11-27] MEDS: INFLIXIMAB BIOSIMILAR 500 MG in NS 200 ML IV ONE (13:10)
[2024-11-27 14:10] VITALS: BP 119/73; O2SAT 99
[2024-11-27 15:10] VITALS: BP 127/68; O2SAT 99
== END 2024-11-27 15:18 | disposition home or self-care (01) ==
LOC: M INFU 12:13
PROVIDERS: ATTEND Internal Medicine Gastroenterology
DX: K50.90 Crohn's disease, unspecified, without complications (principal)
CPT/HCPCS: 96413; 96415; Q5103

== ENCOUNTER 2025-01-30 07:27 | Outpatient (CLI) | payer OTHER ==
[~2025-01-30] VITALS: Ht 165.1 cm; Wt 86.4 kg
[~2025-01-30 07:27] MED LIST changes: +DICY1CAP8 PO; +INFL100I IV; +METO1TAB7 PO; +SPIR-10 PO; +VALS1TAB67 PO; +VENL150C43 PO; +VENL75CA2 PO
[2025-01-30 07:30] VITALS: BP 137/90; O2SAT 97
[2025-01-30] MEDS ORDERED: NS (Normal Saline) 0.9% 1,000 ML IV SCH (07:30)
[2025-01-30] MEDS: ACETAMINOPHEN 650MG PO PRIOR TO INFUSION PO ONE (07:48)
[2025-01-30] MEDS: INFLIXIMAB BIOSIMILAR 500 MG in NS 200 ML IV ONE (08:18)
[2025-01-30 08:42] VITALS: BP 126/91; O2SAT 99
[2025-01-30] MEDS: dexameTHASONE 20 MG IV PRIOR TO INFUSION IV ONE (09:07)
[2025-01-30 10:20] VITALS: BP 137/95; O2SAT 97
[2025-01-30 10:40] VITALS: BP 128/93; O2SAT 97
[2025-01-30 10:46] VITALS: BP 128/93; TEMP 36.1; O2SAT 97
== END 2025-01-30 10:40 | disposition home or self-care (01) ==
LOC: M INFU 07:27
PROVIDERS: ATTEND Internal Medicine Gastroenterology
DX: K50.90 Crohn's disease, unspecified, without complications (principal)
CPT/HCPCS: 96375; 96413; 96415; J1100; Q5103

== ENCOUNTER → 2025-03-19 | Outpatient (CLI) | payer OTHER | LOC: M WHC 14:53 | PROVIDERS: ATTEND Nurse Practitioner Family | DX: Z12.31 Encounter for screening mammogram for malignant neoplasm of breast (principal); Z53.9 Procedure and treatment not carried out, unspecified reason ==

== ENCOUNTER → 2025-03-24 | Outpatient (CLI) | payer OTHER ==
[2025-03-24 14:45] LABS: BASO # 0.0 10^3/uL (0.0-0.2); BASO % 0.7 % (0.0-1.0); EOS # 0.2 10^3/uL (0.0-0.5); EOS % 3.7 % (0.0-3.0); LYMPH # 1.5 10^3/uL (1.5-5.0); LYMPH % 27.7 % (24.0-44.0); MONO # 0.6 10^3/uL (0.0-0.8); MONO % 11.0 % (2.0-8.0); NEUTROPHILS # 3.0 10^3/uL (1.5-8.5); NEUTROPHILS % 56.5 % (36.0-66.0); PLATELET COUNT, AUTOMATED 363 10^3/uL (150-450)
[2025-03-24 14:52] LABS: ESTIMATED AVERAGE GLUCOSE 97.0 MG/DL (60-110)
[2025-03-24 15:07] LABS: ALT/SGPT 232 U/L (7.0-40); AST/SGOT 175 U/L (<34); CALCIUM LEVEL 8.8 MG/DL (8.5-10.1); CARBON DIOXIDE LEVEL 26 MMOL/L (20-31); CHLORIDE LEVEL 102 MMOL/L (98-107); CHOLESTEROL LEVEL 135 MG/DL (<200); CHOLESTEROL RISK RATIO 2.42 (<5); CREATININE FOR GFR 0.62 MG/DL (0.55-1.30); GLOMERULAR FILTRATION RATE > 90.0 (>58); IRON (FE) 153 UG/DL (50-170); LDL CHOLESTEROL 41.3 MG/DL (<100); NON-HDL-C 79.3 MG/DL; PERCENT SATURATION 38.6 % (13.2-45.0); POTASSIUM SERUM 4.3 MMOL/L (3.5-5.1); SODIUM LEVEL 137 MMOL/L (136-145); TRIGLYCERIDES LEVEL 190 MG/DL (<150)
[2025-03-24 15:09] LABS: FREE T4 1.11 NG/DL (0.89-1.76)
== END ==
LOC: M LAB 13:38
PROVIDERS: ATTEND Nurse Practitioner Family
DX: K50.00 Crohn's disease of small intestine without complications (principal); R87.612 Low grade squamous intraepithelial lesion on cytologic smear of cervix (LGSIL); R87.810 Cervical high risk human papillomavirus (HPV) DNA test positive; M45.7 Ankylosing spondylitis of lumbosacral region; F32.9 Major depressive disorder, single episode, unspecified; F41.9 Anxiety disorder, unspecified; I10 Essential (primary) hypertension; F90.9 Attention-deficit hyperactivity disorder, unspecified type; D50.9 Iron deficiency anemia, unspecified; L42 Pityriasis rosea; M25.40 Effusion, unspecified joint; K21.9 Gastro-esophageal reflux disease without esophagitis; R00.2 Palpitations; Z86.19 Personal history of other infectious and parasitic diseases

== ENCOUNTER 2025-03-25 07:43 | Outpatient (CLI) | payer OTHER ==
[~2025-03-25] VITALS: Ht 165.1 cm; Wt 86.4 kg
[2025-03-25 07:50] VITALS: BP 126/83; O2SAT 97
[2025-03-25] MEDS: dexameTHASONE 20 MG IV PRIOR TO INFUSION IV ONE (07:59)
[2025-03-25] MEDS ORDERED: NS (Normal Saline) 0.9% 1,000 ML IV SCH (08:00)
[2025-03-25] MEDS: ACETAMINOPHEN 650MG PO PRIOR TO INFUSION PO ONE (08:00)
[2025-03-25] MEDS: INFLIXIMAB BIOSIMILAR 500 MG in NS 200 ML IV ONE (08:37)
[2025-03-25 10:00] VITALS: BP 120/67; O2SAT 98
[2025-03-25 10:50] VITALS: BP 112/74; O2SAT 97
[2025-03-25 10:55] VITALS: BP 112/74; TEMP 36.7; O2SAT 97
== END 2025-03-25 10:55 | disposition home or self-care (01) ==
LOC: M INFU 07:43
PROVIDERS: ATTEND Internal Medicine Gastroenterology
DX: K50.018 Crohn's disease of small intestine with other complication (principal)
CPT/HCPCS: 96375; 96413; 96415; J1100; Q5103